=== PATIENT | female | born 1950 | race African-American/Black ===

== ENCOUNTER 2019-06-06 23:23 | Inpatient (IN) | payer MEDICARE, OTHER ==
[2019-06-07 00:27] VITALS: BP 111/68
[2019-06-07] MEDS: Levothyroxine 0.05 Mg Tab PO SCH (07:02)
[2019-06-07] MEDS: Multivitamin w/ Minerals Tab PO SCH (08:30)
--- NOTE | 2019-06-07 13:04 | History and Physical ---
History of Present Illness - HPI Chief Complaint: 68 y/o female patient was brought into [place] [facility] and then transferred here due Bilateral lower extremity edema for x 3 weeks. HPI: 68 y/o female patient was admitted to [facility] for evaluation due to Aggressive behavior and Bilateral lower extremity edema for x 3 weeks. Patient has past medical history of Hypertension and CHF. Patient had a chest x-ray done at [facility] which was negative for abnormalities. Patient had an ER assessment done and a complete workup was done. Patient was diagnosed with Agitation, Anxiety, Acute Psychosis, Bilateral lower extremity edema, History of CHF and History of Hypertension. Patient will have a Psych consult. I will follow, treat and monitor patient. Patient will continue current treatment plan as ordered. Vital Signs: Last Vital Signs Temp 98.2 F 06/07/19 06:38 Pulse 94 06/07/19 06:38 Resp 19 06/07/19 06:38 BP 141/82 06/07/19 06:38 Pulse Ox 99 06/07/19 06:38 Past Medical History Cardiovascular: Report: CHF, HTN Pulmonary: Report: No Pertinent Hx TREKKING GUIDE: Report: No Pertinent Hx GI: Report: No Pertinent Hx Psych: Report: Addictions Musculoskeletal: Report: Swelling (swelling of bilateral lower extremity.) Rheumatologic: Report: No pertinent Hx Infectious Disease: Report: No Pertinent Hx Renal/: Report: No Pertinent Hx Endocrine: Report: No Pertinent Hx Dermatology: Report: Other (edema of harry. lower) - Past Surgical History Past Surgical History: No pertinent Hx Family Medical History - Family Member unknown History Unknown: Yes Ethnicity: Unknown Living Status: Unknown Social History Smoke: No Alcohol: None Drugs: None Lives: [facility] Domestic Violence: Negative Health Maintenance Health Maintenance: Other (Please see chart.) - Medications Home Medications: Home Medication Medication Instructions Recorded Type Acetaminophen 650 mg PO Q4HR PRN 06/07/19 History Ascorbic Acid [Vitamin C] 500 mg PO DAILY 06/07/19 History Docusate Sodium [Colace] 100 mg PO DAILY 06/07/19 History Furosemide [Lasix] 40 mg PO DAILY 06/07/19 History Levothyroxine Sodium 50 mcg PO QDAC 06/07/19 History Lorazepam [Ativan] 1 ml IM Q6HR PRN 06/07/19 History Losartan Potassium 50 mg PO DAILY 06/07/19 History Multivitamin with Minerals 1 tab PO DAILY 06/07/19 History [Multivitamins with Minerals] QUEtiapine Fumarate [SEROquel] 200 mg PO BID 06/07/19 History Zinc Sulfate [Zinc Sulfate 111 1 tab PO DAILY 06/07/19 History mg-50 mg] Other Medications: Please see medication reconciliation sheet. - Allergies Allergies/Adverse Reactions: Allergies Allergy/AdvReac Type Severity Reaction Status Date / Time aspirin Allergy Verified 06/07/19 00:26 ibuprofen Allergy Verified 06/07/19 00:26 Penicillins Allergy Verified 06/07/19 00:26 Review of Systems - Review of Systems Review of Systems: Patient was admitted due to Agitation and Edema of harry. lower extremity. Constitutional: Report: Other (Agitated.) Eyes: Report: No Significant ENT: Report: No Significant Respiratory: Report: No Significant Cardiovascular: Report: No Significant Gastrointestinal: Report: No Significant Genitourinary: Report: No Significant Musculoskeletal: Report: No Significant Skin: Report: Other (sweling of harry. lower extremity.) Neurological: Report: Other (Patient is very agitated.) Physical Exam - Physical Exam HEENT: Report: Ears Nose Throat within normal limits Neck: Report: Within normal limits Cardiovascular Systems: Report: +s1/s2 noted Respiratory: Report: Breath Sounds are within normal limits Abdomen: Report: Non-tender to palpation Back: Report: Inspection of back is within normal limits. Extremities: Report: Non-tender to palpation. Skin: Report: Other (swelling of harry. lower extremity.) Neuro/Psych: Report: Other (Agitated.) - Lab Results All Lab Results last 24 hours: see orders. - Assessment Assessment: Agitation. Anxiety. Acute Psychosis. Bilateral lower extremity edema. History of CHF. History of Hypertension. - Plan Plan: Continuation of care. Psych consult. Monitor vitals and labs. Continue present meds as directed. Continue current treatment plan as ordered.
--- NOTE | 2019-06-07 18:12 | Psychiatric Evaluation ---
DATE OF SERVICE: 06/07/2019 JUSTIFICATION FOR HOSPITALIZATION: "The doctor wanted me to come." HISTORY OF PRESENT ILLNESS: This is a 68-year-old female, cleared by [facility], came from [facility], apparently aggressive. History of schizophrenia, mood disorder, was striking out. Staff could not care for her. She has no idea why she is in the hospital. She knows she is in the hospital. She tells me the year and the month, although she thinks it may be June. The patient was noted to be withdrawn, suspicious, labile, very impulsive, easily agitated. PAST PSYCHIATRIC HISTORY: She is not sure if she has been in a psych hospital before. SOCIAL HISTORY: Born in [place], living in [place], , 3 kids, living in [place]. MEDICATIONS: Noted. MEDICAL HISTORY: Noted. MENTAL STATUS EXAMINATION: Stated age, calm, generally cooperative, some confusion noted, especially about why she is in the hospital. Poor impulse control. Poor insight. No overt SI or HI. PROVISIONAL DIAGNOSES: Schizophrenia per documentation, mood disorder. MEDICAL: Please see full H and P. ESTIMATED LENGTH OF STAY: 7-10 days. ASSESSMENT: The patient requiring hospitalization, aggressive, agitated, and poor impulse control. PLAN: We will continue to monitor and adjust medications. TREATMENT PLAN: Includes group as well as milieu therapy. CONDITIONS FOR DISCHARGE: Improved mood, improved affect, better control of any agitation and aggressive behaviors. [facility]# [id number]
[2019-06-08] MEDS: Levothyroxine 0.05 Mg Tab PO SCH (06:30)
[2019-06-08] MEDS: Multivitamin w/ Minerals Tab PO SCH (09:03)
--- NOTE | 2019-06-08 13:11 | Internal Medicine Prog Note ---
Internal Medicine Subjective - Subjective Service Date: 06/08/19 Patient seen and examined:: with staff Patient is:: awake, verbal Patient Complaints of:: other (Anxious.) Per staff patient has:: no adverse event, no episodes of fall Internal Medicine Objective - Physical Exam Vitals and I&O: Vital Signs Temp 96.7 F 06/08/19 06:42 Pulse 85 06/08/19 09:03 Resp 20 06/08/19 06:42 BP 128/73 06/08/19 09:03 Pulse Ox 98 06/08/19 06:42 Intake & Output 06/07/19 06/08/19 06/08/19 18:59 06:59 18:59 Intake Total 720 Balance 720 Intake: Oral 720 Other: # Voids 2 Active Medications: Current Medications Acetaminophen (Tylenol) 650 mg PO Q4HR PRN PRN Reason: Mild Pain / Temp above 100 Stop: 08/06/19 04:11 Last Admin: 06/08/19 06:30 Dose: 650 mg Ascorbic Acid (Vitamin C) 500 mg PO DAILY [facility] Stop: 08/06/19 08:59 Last Admin: 06/08/19 09:03 Dose: 500 mg Docusate Sodium (Colace) 100 mg PO DAILY [facility] Stop: 08/06/19 08:59 Last Admin: 06/08/19 09:03 Dose: 100 mg Furosemide (Lasix) 40 mg PO DAILY [facility] Stop: 08/06/19 08:59 Last Admin: 06/08/19 09:03 Dose: 40 mg Levothyroxine Sodium (Synthroid) 0.05 mg PO QDAC [facility] Stop: 08/06/19 07:29 Last Admin: 06/08/19 06:30 Dose: 0.05 mg Lorazepam (Ativan) 0.5 mg PO Q4HR PRN; Protocol PRN Reason: Anxiety Stop: 07/07/19 02:06 Losartan Potassium (Cozaar) 50 mg PO DAILY [facility] Stop: 08/06/19 08:59 Last Admin: 06/08/19 09:03 Dose: 50 mg Quetiapine Fumarate (Seroquel) 200 mg PO BID [facility]; Protocol Stop: 08/06/19 16:59 Last Admin: 06/08/19 09:03 Dose: 200 mg Zinc Sulfate (Zinc Sulfate) 220 mg PO DAILY [facility] Stop: 08/06/19 08:59 Last Admin: 06/08/19 09:04 Dose: 220 mg Zolpidem Tartrate (Ambien) 5 mg PO HS PRN PRN Reason: Insomnia Stop: 08/06/19 02:06 Physical Exam: Patient is very anxious and agitated. General: other (irritable.) HEENT: NC/AT Neck: Supple Lungs: CTAB Cardiovascular: RRR, Normal S1 Abdomen: soft, non-tender Extremities: clear Neurological: no change Internal Medicine Assmt/Plan - Assessment Assessment: Agitation. Anxiety. Acute Psychosis. Bilateral lower extremity edema. History of CHF. History of Hypertension. - Plan Plan: Continuation of care. Psych consult. Monitor vitals and labs. Continue present meds as directed. Continue current treatment plan as ordered. Nutritional Asmnt/Malnutr-PDOC - Dietary Evaluation Malnutrition Findings (Please click <Entered> for more info): see orders.
--- NOTE | 2019-06-08 18:46 | Progress Notes ---
DATE: 06/08/2019 SUBJECTIVE: The patient was seen and evaluated. The patient's chart reviewed. Covering for Dr. Oakley. IDENTIFYING DATA: Brought in here from [facility] for aggressive and assaultive behavior. Medication reconciliation reviewed, currently on Seroquel 200 mg p.o. b.i.d. Today on [id number] evaluation, she reports I told you I do not want to be reevaluated, when attempted to get more information, she is more guarded, withdrawn, does not participate in interview. MENTAL STATUS EXAMINATION: Withdrawn, non-participatory in interview, suspicious. ASSESSMENT AND PLAN: This is a 68-year-old female who continues to be withdrawn, depressed and suspicious. We will continue with Seroquel. I will obtain more collateral and monitoring further her aggressive behavior. JOB# [id number]
[2019-06-09] MEDS: Levothyroxine 0.05 Mg Tab PO SCH (06:56)
[2019-06-09] MEDS: Multivitamin w/ Minerals Tab PO SCH (09:06)
--- NOTE | 2019-06-09 10:02 | Internal Medicine Prog Note ---
Internal Medicine Subjective - Subjective Patient is:: asleep, in bed Patient Complaints of:: other (Anxious.) Per staff patient has:: no adverse event, no episodes of fall Internal Medicine Objective - Physical Exam Vitals and I&O: Vital Signs Temp 97.6 F 06/09/19 05:57 Pulse 92 06/09/19 09:05 Resp 18 06/09/19 05:57 BP 126/72 06/09/19 09:05 Pulse Ox 98 06/09/19 05:57 Intake & Output 06/08/19 06/09/19 06/09/19 18:59 06:59 18:59 Intake Total 1200 480 Output Total 1 Balance 1200 479 Intake: Oral 1200 480 Output: Urine/Stool Mix 1 Other: # Voids 1 # Bowel Movements 1 1 Active Medications: Current Medications Acetaminophen (Tylenol) 650 mg PO Q4HR PRN PRN Reason: Mild Pain / Temp above 100 Stop: 08/06/19 04:11 Last Admin: 06/08/19 06:30 Dose: 650 mg Ascorbic Acid (Vitamin C) 500 mg PO DAILY [facility] Stop: 08/06/19 08:59 Last Admin: 06/09/19 09:03 Dose: 500 mg Docusate Sodium (Colace) 100 mg PO DAILY [facility] Stop: 08/06/19 08:59 Last Admin: 06/09/19 09:03 Dose: 100 mg Furosemide (Lasix) 40 mg PO DAILY [facility] Stop: 08/06/19 08:59 Last Admin: 06/09/19 09:03 Dose: 40 mg Levothyroxine Sodium (Synthroid) 0.05 mg PO QDAC [facility] Stop: 08/06/19 07:29 Last Admin: 06/09/19 06:56 Dose: 0.05 mg Lorazepam (Ativan) 0.5 mg PO Q4HR PRN; Protocol PRN Reason: Anxiety Stop: 07/07/19 02:06 Losartan Potassium (Cozaar) 50 mg PO DAILY [facility] Stop: 08/06/19 08:59 Last Admin: 06/09/19 09:05 Dose: 50 mg Quetiapine Fumarate (Seroquel) 200 mg PO BID [facility]; Protocol Stop: 08/06/19 16:59 Last Admin: 06/09/19 09:06 Dose: 200 mg Zinc Sulfate (Zinc Sulfate) 220 mg PO DAILY [facility] Stop: 08/06/19 08:59 Last Admin: 06/09/19 09:06 Dose: 220 mg Zolpidem Tartrate (Ambien) 5 mg PO HS PRN PRN Reason: Insomnia Stop: 08/06/19 02:06 General: NAD HEENT: NC/AT Neck: Supple, No JVD Lungs: CTAB Cardiovascular: RRR Abdomen: soft, non-tender, non-distended Extremities: clear Neurological: no change Internal Medicine Assmt/Plan - Assessment Assessment: Agitation Anxiety Acute Psychosis Hx CHF Hx HTN - Plan Plan: Continue current treatment plan. Monitor Labs. Continue current medications Continue to monitor VS Monitor Diet/Nutritional support. Psych management per Psychiatry. Pain Management. PT/OT prn Safety precaution, Fall precaution, frequent nursing round. Supportive care. Continue collaborating with consulting specialists, case management and nursing team
--- NOTE | 2019-06-09 18:34 | Progress Notes ---
DATE: 06/09/2019 SUBJECTIVE: The patient was seen and evaluated. Covering for Dr. Oakley. Today on [id number] evaluation, the patient denies any overt sedation of the medication. The patient reported her mood continues to feel better, does not know why she is here. MENTAL STATUS EXAMINATION: Withdrawn, disengaged, less suspicious. ASSESSMENT AND PLAN: This is a 68-year-old female with a history of schizoaffective depressive type with residual suspicious behavior improvement with the current medication regimen. We will continue to target and current symptoms with the current medication and primary psychiatrist treatment plan. JOB# [id number]
[2019-06-10] MEDS: Levothyroxine 0.05 Mg Tab PO SCH (06:42)
[2019-06-10] MEDS: Multivitamin w/ Minerals Tab PO SCH (08:49)
--- NOTE | 2019-06-10 09:39 | Internal Medicine Prog Note ---
Internal Medicine Subjective - Subjective Service Date: 06/10/19 Patient seen and examined:: with staff Patient is:: asleep, in bed Patient Complaints of:: other (Anxious.) Per staff patient has:: no adverse event, no episodes of fall Internal Medicine Objective - Physical Exam Vitals and I&O: Vital Signs Temp 99.7 F 06/10/19 05:55 Pulse 90 06/10/19 05:55 Resp 20 06/10/19 05:55 BP 116/66 06/10/19 05:55 Pulse Ox 99 06/10/19 05:55 Intake & Output 06/09/19 06/10/19 06/10/19 18:59 06:59 18:59 Intake Total 1250 300 Output Total 1 Balance 1250 299 Intake: Oral 1250 300 Output: Urine/Stool Mix 1 Other: # Voids 1 # Bowel Movements 1 1 Active Medications: Current Medications Acetaminophen (Tylenol) 650 mg PO Q4HR PRN PRN Reason: Mild Pain / Temp above 100 Stop: 08/06/19 04:11 Last Admin: 06/08/19 06:30 Dose: 650 mg Ascorbic Acid (Vitamin C) 500 mg PO DAILY [facility] Stop: 08/06/19 08:59 Last Admin: 06/10/19 08:49 Dose: 500 mg Docusate Sodium (Colace) 100 mg PO DAILY [facility] Stop: 08/06/19 08:59 Last Admin: 06/10/19 08:49 Dose: 100 mg Furosemide (Lasix) 40 mg PO DAILY [facility] Stop: 08/06/19 08:59 Last Admin: 06/09/19 09:03 Dose: 40 mg Levothyroxine Sodium (Synthroid) 0.05 mg PO QDAC [facility] Stop: 08/06/19 07:29 Last Admin: 06/10/19 06:42 Dose: 0.05 mg Lorazepam (Ativan) 0.5 mg PO Q4HR PRN; Protocol PRN Reason: Anxiety Stop: 07/07/19 02:06 Losartan Potassium (Cozaar) 50 mg PO DAILY [facility] Stop: 08/06/19 08:59 Last Admin: 06/09/19 09:05 Dose: 50 mg Quetiapine Fumarate (Seroquel) 200 mg PO BID [facility]; Protocol Stop: 08/06/19 16:59 Last Admin: 06/10/19 08:49 Dose: 200 mg Zinc Sulfate (Zinc Sulfate) 220 mg PO DAILY [facility] Stop: 08/06/19 08:59 Last Admin: 06/10/19 08:49 Dose: 220 mg Zolpidem Tartrate (Ambien) 5 mg PO HS PRN PRN Reason: Insomnia Stop: 08/06/19 02:06 Last Admin: 06/09/19 20:49 Dose: 5 mg Physical Exam: Patient is still very anxious and easily agitated. General: NAD HEENT: NC/AT Neck: Supple, No JVD Lungs: CTAB Cardiovascular: RRR Abdomen: soft, non-tender, non-distended Extremities: clear Neurological: no change Internal Medicine Assmt/Plan - Assessment Assessment: Agitation. Anxiety. Acute Psychosis. Bilateral lower extremity edema. History of CHF. History of Hypertension. - Plan Plan: Continuation of care. Psych consult. Monitor vitals and labs. Continue present meds as directed. Continue present care management. Nutritional Asmnt/Malnutr-PDOC - Dietary Evaluation Malnutrition Findings (Please click <Entered> for more info): see orders.
--- NOTE | 2019-06-10 23:56 | Progress Notes ---
DATE: 06/10/2019 SUBJECTIVE: The patient is currently in the hospital, seen today 06/10/2019. Does not have any idea why she is in the hospital, just stating that she is here for "an evaluation". Mostly withdrawn, keeping to herself, isolative, ongoing melancholy. Dr. Butts seeing her over the weekend, noting she was withdrawn, disengaged, ongoing concerns about impulsivity, poor impulse control. The patient is living in [facility]. ASSESSMENT: Ongoing depression, confusion, forgetfulness. PLAN: We will continue to monitor mostly because of aggressive and agitated behaviors. [facility]# [id number]
[2019-06-11] MEDS: Levothyroxine 0.05 Mg Tab PO SCH (06:36)
[2019-06-11] MEDS: Multivitamin w/ Minerals Tab PO SCH (09:10)
--- NOTE | 2019-06-11 16:46 | Internal Medicine Prog Note ---
Internal Medicine Subjective - Subjective Service Date: 06/11/19 Patient is:: asleep, in bed Patient Complaints of:: other (Anxious.) Per staff patient has:: no adverse event, no episodes of fall Internal Medicine Objective - Physical Exam Vitals and I&O: Vital Signs Temp 97.4 F 06/11/19 13:55 Pulse 101 06/11/19 13:55 Resp 18 06/11/19 13:55 BP 110/56 06/11/19 13:55 Pulse Ox 99 06/11/19 13:55 Intake & Output 06/10/19 06/11/19 06/11/19 18:59 06:59 18:59 Intake Total 300 Output Total 1 Balance 299 Intake: Oral 300 Output: Urine/Stool Mix 1 Other: # Voids 1 # Bowel Movements 1 Active Medications: Current Medications Acetaminophen (Tylenol) 650 mg PO Q4HR PRN PRN Reason: Mild Pain / Temp above 100 Stop: 08/06/19 04:11 Last Admin: 06/08/19 06:30 Dose: 650 mg Ascorbic Acid (Vitamin C) 500 mg PO DAILY [facility] Stop: 08/06/19 08:59 Last Admin: 06/11/19 09:09 Dose: 500 mg Docusate Sodium (Colace) 100 mg PO DAILY [facility] Stop: 08/06/19 08:59 Last Admin: 06/11/19 09:10 Dose: 100 mg Furosemide (Lasix) 40 mg PO DAILY [facility] Stop: 08/06/19 08:59 Last Admin: 06/11/19 09:09 Dose: 40 mg Levothyroxine Sodium (Synthroid) 0.05 mg PO QDAC [facility] Stop: 08/06/19 07:29 Last Admin: 06/11/19 06:36 Dose: 0.05 mg Lorazepam (Ativan) 0.5 mg PO Q4HR PRN; Protocol PRN Reason: Anxiety Stop: 07/07/19 02:06 Losartan Potassium (Cozaar) 50 mg PO DAILY [facility] Stop: 08/06/19 08:59 Last Admin: 06/11/19 09:10 Dose: 50 mg Quetiapine Fumarate (Seroquel) 200 mg PO BID [facility]; Protocol Stop: 08/06/19 16:59 Last Admin: 06/11/19 16:39 Dose: 200 mg Zinc Sulfate (Zinc Sulfate) 220 mg PO DAILY [facility] Stop: 08/06/19 08:59 Last Admin: 06/11/19 09:10 Dose: 220 mg Zolpidem Tartrate (Ambien) 5 mg PO HS PRN PRN Reason: Insomnia Stop: 08/06/19 02:06 Last Admin: 06/10/19 21:03 Dose: 5 mg General: NAD HEENT: NC/AT Neck: Supple, No JVD Lungs: CTAB Cardiovascular: RRR Abdomen: soft, non-tender, non-distended Extremities: clear Neurological: no change Internal Medicine Assmt/Plan - Assessment Assessment: Agitation Anxiety Acute Psychosis Hx CHF Hx HTN - Plan Plan: Continue current treatment plan. Monitor Labs. Continue current medications Continue to monitor VS Monitor Diet/Nutritional support. Psych management per Psychiatry. Pain Management. PT/OT prn Safety precaution, Fall precaution, frequent nursing round. Supportive care. Continue collaborating with consulting specialists, case management and nursing team
[2019-06-12] MEDS: Levothyroxine 0.05 Mg Tab PO SCH (06:35)
[2019-06-12] MEDS: Multivitamin w/ Minerals Tab PO SCH (08:21)
--- NOTE | 2019-06-12 14:38 | Internal Medicine Prog Note ---
Internal Medicine Subjective - Subjective Service Date: 06/12/19 Patient seen and examined:: with staff Patient is:: awake, in bed, agitated Patient Complaints of:: other (Anxious.) Per staff patient has:: no adverse event, no episodes of fall Internal Medicine Objective - Physical Exam Vitals and I&O: Vital Signs Temp 96.8 F 06/12/19 05:16 Pulse 96 06/12/19 08:22 Resp 19 06/12/19 07:44 BP 130/79 06/12/19 08:22 Pulse Ox 100 06/12/19 05:16 Intake & Output 06/11/19 06/12/19 06/12/19 18:59 06:59 18:59 Intake Total 180 Balance 180 Intake: Oral 180 Other: # Voids 4 1 # Bowel Movements 1 0 Active Medications: Current Medications Acetaminophen (Tylenol) 650 mg PO Q4HR PRN PRN Reason: Mild Pain / Temp above 100 Stop: 08/06/19 04:11 Last Admin: 06/08/19 06:30 Dose: 650 mg Ascorbic Acid (Vitamin C) 500 mg PO DAILY [facility] Stop: 08/06/19 08:59 Last Admin: 06/12/19 08:21 Dose: 500 mg Docusate Sodium (Colace) 100 mg PO DAILY [facility] Stop: 08/06/19 08:59 Last Admin: 06/12/19 08:21 Dose: 100 mg Furosemide (Lasix) 40 mg PO DAILY [facility] Stop: 08/06/19 08:59 Last Admin: 06/12/19 08:21 Dose: 40 mg Levothyroxine Sodium (Synthroid) 0.05 mg PO QDAC [facility] Stop: 08/06/19 07:29 Last Admin: 06/12/19 06:35 Dose: 0.05 mg Lorazepam (Ativan) 0.5 mg PO Q4HR PRN; Protocol PRN Reason: Anxiety Stop: 07/07/19 02:06 Losartan Potassium (Cozaar) 50 mg PO DAILY [facility] Stop: 08/06/19 08:59 Last Admin: 06/12/19 08:22 Dose: 50 mg Quetiapine Fumarate (Seroquel) 200 mg PO BID [facility]; Protocol Stop: 08/06/19 16:59 Last Admin: 06/12/19 08:22 Dose: 200 mg Zinc Sulfate (Zinc Sulfate) 220 mg PO DAILY [facility] Stop: 08/06/19 08:59 Last Admin: 06/12/19 08:21 Dose: 220 mg Zolpidem Tartrate (Ambien) 5 mg PO HS PRN PRN Reason: Insomnia Stop: 08/06/19 02:06 Last Admin: 06/10/19 21:03 Dose: 5 mg Physical Exam: Patient is easily agitated and anxious. General: NAD HEENT: NC/AT Neck: Supple, No JVD Lungs: CTAB Cardiovascular: RRR Abdomen: soft, non-tender, non-distended Extremities: clear Neurological: no change Internal Medicine Assmt/Plan - Assessment Assessment: Agitation. Anxiety. Acute Psychosis. Bilateral lower extremity edema. History of CHF. History of Hypertension. - Plan Plan: Continuation of care. Psych consult. Monitor vitals and labs. Continue present meds as directed. Continue present care management. Nutritional Asmnt/Malnutr-PDOC - Dietary Evaluation Malnutrition Findings (Please click <Entered> for more info): see orders.
--- NOTE | 2019-06-12 16:34 | Progress Notes ---
DATE: SUBJECTIVE: Chart reviewed and the patient interviewed. Also discussed the patient's condition with the staff and reviewed records and labs. The patient is still forgetful and is still withdrawn. The patient also is depressed. The patient also is impulsive and she wants to be left alone and isolates herself. Otherwise, the patient is compliant with taking her medications with no side effects. ASSESSMENT: The patient is still confused and forgetful. TREATMENT PLAN: Continue to monitor her behavior and her condition closely. The patient also continued to take Seroquel 200 mg twice a day with no side effects. We will continue same dose and continue to work on behavior modification and followup. JOB# [id number]
[2019-06-13] MEDS: Levothyroxine 0.05 Mg Tab PO SCH (06:36)
[2019-06-13] MEDS: Escitalopram Oxalate 5 mg Tab PO SCH (09:12)
[2019-06-13] MEDS: Multivitamin w/ Minerals Tab PO SCH (09:14)
--- NOTE | 2019-06-13 14:57 | Internal Medicine Prog Note ---
Internal Medicine Subjective - Subjective Service Date: 06/13/19 Patient is:: awake, in bed, agitated Patient Complaints of:: other (Anxious.) Per staff patient has:: no adverse event, no episodes of fall Internal Medicine Objective - Physical Exam Vitals and I&O: Vital Signs Temp 97.5 F 06/13/19 06:34 Pulse 80 06/13/19 09:13 Resp 19 06/13/19 08:00 BP 110/66 06/13/19 09:15 Pulse Ox 99 06/13/19 06:34 Intake & Output 06/12/19 06/13/19 06/13/19 18:59 06:59 18:59 Intake Total 900 240 Balance 900 240 Intake: Oral 900 240 Other: # Voids 3 1 # Bowel Movements 1 Active Medications: Current Medications Acetaminophen (Tylenol) 650 mg PO Q4HR PRN PRN Reason: Mild Pain / Temp above 100 Stop: 08/06/19 04:11 Last Admin: 06/08/19 06:30 Dose: 650 mg Ascorbic Acid (Vitamin C) 500 mg PO DAILY [facility] Stop: 08/06/19 08:59 Last Admin: 06/13/19 09:14 Dose: 500 mg Docusate Sodium (Colace) 100 mg PO DAILY [facility] Stop: 08/06/19 08:59 Last Admin: 06/13/19 09:14 Dose: 100 mg Escitalopram Oxalate (Lexapro) 5 mg PO DAILY [facility]; Protocol Stop: 08/12/19 08:59 Last Admin: 06/13/19 09:12 Dose: 5 mg Furosemide (Lasix) 40 mg PO DAILY [facility] Stop: 08/06/19 08:59 Last Admin: 06/13/19 09:15 Dose: 40 mg Levothyroxine Sodium (Synthroid) 0.05 mg PO QDAC [facility] Stop: 08/06/19 07:29 Last Admin: 06/13/19 06:36 Dose: 0.05 mg Lorazepam (Ativan) 0.5 mg PO Q4HR PRN; Protocol PRN Reason: Anxiety Stop: 07/07/19 02:06 Losartan Potassium (Cozaar) 50 mg PO DAILY [facility] Stop: 08/06/19 08:59 Last Admin: 06/13/19 09:13 Dose: Not Given Quetiapine Fumarate (Seroquel) 175 mg PO BID [facility]; Protocol Stop: 08/12/19 08:59 Last Admin: 06/13/19 09:11 Dose: 175 mg Zinc Sulfate (Zinc Sulfate) 220 mg PO DAILY [facility] Stop: 08/06/19 08:59 Last Admin: 06/13/19 09:12 Dose: 220 mg Zolpidem Tartrate (Ambien) 5 mg PO HS PRN PRN Reason: Insomnia Stop: 08/06/19 02:06 Last Admin: 06/10/19 21:03 Dose: 5 mg General: NAD HEENT: NC/AT Neck: Supple, No JVD Lungs: CTAB Cardiovascular: RRR Abdomen: soft, non-tender, non-distended Extremities: clear Neurological: no change Internal Medicine Assmt/Plan - Assessment Assessment: Agitation Anxiety Acute Psychosis Hx CHF Hx HTN - Plan Plan: Continue current treatment plan. Monitor Labs. Continue current medications Continue to monitor VS Monitor Diet/Nutritional support. Psych management per Psychiatry. Pain Management. PT/OT prn Safety precaution, Fall precaution, frequent nursing round. Supportive care. Continue collaborating with consulting specialists, case management and nursing team Nutritional Asmnt/Malnutr-PDOC - Dietary Evaluation Malnutrition Findings (Please click <Entered> for more info): Nutritional Asmnt/Malnutrition Start: 06/12/19 15: 50 Text: Status: Complete Freq: Protocol: Document 06/12/19 15:50 JOVAN (Rec: 06/12/19 15:53 JOVAN [email or web address]) Nutritional Asmnt/Malnutrition Patient General Information Nutritional Screening Low Risk Diagnosis Psychosis Pertinent Medical Hx/Surgical Hx HTN, CHF Subjective Information Pt is a 68-year-old female admitted on 06/06 from residential c/o YESIKA Lower Extremity edema x3 weeks. Pt is eating an estimated 90% of meals x 2 days (average) Per Meal/ Nutrition Activity Record. Dietary is currently providing an estimated 2450 kcals and 107 gm Pro, per Pt PO intake this is providing an estimated 2205 kcals and 96gm Pro to meet 100% kcal and 100+% Pro needs- adequate to meet estimated energy needs, Protein intake > estimated energy needs d/t renal labs () BUN/Cr 46/1.27, GFR 54. Recommend adding Renal to Pt diet order, spoke with Nurse Méndez, stated she would discuss recommendation with MD . Pt was sleeping and covered with a blanket at time of visit. HT: 57 WT: 172 LB (78.18 kg) BMI: 26.63 (Overweight) GI: Soft, Non-tender BM: 06/11 x1 I/O: 180/Not Noted Skin: Dryness Oniel: 17 Diet Order: Mechanical Soft, BUFFY Estimated Energy Needs: (CKD stage 3, CBW) 0733-7284 kcals (28-30 kcals/ kg) 59-63g Pro (0.75-0.8g/kg) 4348-2725 ml (25-30 ml/kg) Current Diet Order/ Nutrition Support Mechanical Soft, BUFFY Pertinent Medications Vitamin C, Colace, Lasix, Synthroid, Cozaar, Zinc Sulfate Pertinent Labs 06/06: Hgb/Hct 9.8/29.6, Glucose 116, BUN/Cr 46/1.27, GFR 54, Alb 2.8 Nutritional Hx/Data Height 5 ft 7 in Height (Calculated Centimeters) 170.2 Current Weight (lbs) 172 lb Weight (Calculated Kilograms) 78.0 Weight (Calculated Grams) 48631.9 [place] Body Weight 135 LB (61.36 kg) % [place] Body Weight 127 Body Mass Index (BMI) 26.9 Weight Status Overweight GI Symptoms GI Symptoms None Last BM 06/11 x1 Skin Integrity/Comment: Skin: Dryness Oniel: 17 Current %PO Good (75-100%) Estimated Nutritional Goals BEE in Kcals: Using Current wt Calories/Kcals/Kg 28-30 Kcals Calculated 7613-8884 Protein: Using Current wt Protein g/k.75-0.8 Protein Calculated 59-63 Fluid: ml 5986-4255 ml (25-30 ml/kg) Nutritional Problem 1. Problem Problem Altered nutrition related labs Etiology r/t pathophysiological causes Signs/Symptoms: aeb renal labs (06/06) BUN/Cr 46/1.27, GFR 54. Malnutrition Related to Morbid Obesity Malnutrition related to morbid obesity No Intervention/Recommendation Comments 1. Continue with Mechanical Soft, BUFFY diet as ordered. 2. Consider Renal diet d/t renal labs (06/06) BUN/Cr 46/1. 27, GFR 54. Expected Outcomes/Goals Expected Outcomes/Goals 1. PO intake to continue to meet >75% of nutritional needs . 2. Monitor PO intake, wt, skin integrity and nutrition related labs to trend WNL. 3. F/U as moderate risk in 3-5 days, 06/15-06/18
--- NOTE | 2019-06-13 15:42 | Progress Notes ---
DATE: SUBJECTIVE: Chart reviewed and the patient interviewed. I also discussed the patient's condition with the staff and reviewed records and labs. The patient is still preoccupied and is still actively responding. The patient also is withdrawn and guarded and interacting minimally with others. The patient also is impulsive with poor impulse control. The patient also wants to be left alone most of the time. On the other hand, the patient hallucinations seem to be less than before. ASSESSMENT: The patient is still psychotic and has poor impulse control. TREATMENT PLAN: Continue Seroquel 200 mg twice a day. Also, continue to work on her poor impulse control. JOB# [id number]
[2019-06-14] MEDS: Levothyroxine 0.05 Mg Tab PO SCH (06:38)
[2019-06-14] MEDS: Multivitamin w/ Minerals Tab PO SCH (08:42)
[2019-06-14] MEDS: Escitalopram Oxalate 5 mg Tab PO SCH (08:42)
--- NOTE | 2019-06-14 10:41 | Internal Medicine Prog Note ---
Internal Medicine Subjective - Subjective Service Date: 06/14/19 Patient seen and examined:: with staff Patient is:: awake, in bed, agitated Patient Complaints of:: other (Anxious.) Per staff patient has:: no adverse event, no episodes of fall Internal Medicine Objective - Physical Exam Vitals and I&O: Vital Signs Temp 96.7 F 06/13/19 20:00 Pulse 93 06/13/19 20:00 Resp 20 06/13/19 20:00 BP 111/68 06/14/19 08:46 Pulse Ox 99 06/13/19 20:00 Intake & Output 06/13/19 06/14/19 06/14/19 18:59 06:59 18:59 Intake Total 1200 Balance 1200 Intake: Oral 1200 Other: # Bowel Movements 1 Active Medications: Current Medications Acetaminophen (Tylenol) 650 mg PO Q4HR PRN PRN Reason: Mild Pain / Temp above 100 Stop: 08/06/19 04:11 Last Admin: 06/08/19 06:30 Dose: 650 mg Ascorbic Acid (Vitamin C) 500 mg PO DAILY [facility] Stop: 08/06/19 08:59 Last Admin: 06/14/19 08:42 Dose: 500 mg Docusate Sodium (Colace) 100 mg PO DAILY [facility] Stop: 08/06/19 08:59 Last Admin: 06/14/19 08:42 Dose: 100 mg Escitalopram Oxalate (Lexapro) 5 mg PO DAILY [facility]; Protocol Stop: 08/12/19 08:59 Last Admin: 06/14/19 08:42 Dose: 5 mg Furosemide (Lasix) 40 mg PO DAILY [facility] Stop: 08/06/19 08:59 Last Admin: 06/14/19 08:46 Dose: 40 mg Levothyroxine Sodium (Synthroid) 0.05 mg PO QDAC [facility] Stop: 08/06/19 07:29 Last Admin: 06/14/19 06:38 Dose: 0.05 mg Lorazepam (Ativan) 0.5 mg PO Q4HR PRN; Protocol PRN Reason: Anxiety Stop: 07/07/19 02:06 Losartan Potassium (Cozaar) 50 mg PO DAILY [facility] Stop: 08/06/19 08:59 Last Admin: 06/13/19 09:13 Dose: Not Given Quetiapine Fumarate (Seroquel) 175 mg PO BID [facility]; Protocol Stop: 08/12/19 08:59 Last Admin: 06/14/19 08:43 Dose: 175 mg Zinc Sulfate (Zinc Sulfate) 220 mg PO DAILY [facility] Stop: 08/06/19 08:59 Last Admin: 06/14/19 08:42 Dose: 220 mg Zolpidem Tartrate (Ambien) 5 mg PO HS PRN PRN Reason: Insomnia Stop: 08/06/19 02:06 Last Admin: 06/10/19 21:03 Dose: 5 mg Physical Exam: Patient has ppor impulse control, psychotic. General: NAD HEENT: NC/AT Neck: Supple, No JVD Lungs: CTAB Cardiovascular: RRR Abdomen: soft, non-tender, non-distended Extremities: clear Neurological: no change Internal Medicine Assmt/Plan - Assessment Assessment: Poor impulse control. Agitation. Anxiety. Acute Psychosis. Bilateral lower extremity edema. History of CHF. History of Hypertension. - Plan Plan: Continuation of care. Psych consult. Monitor vitals and labs. Continue present meds as directed. Continue present care management. Nutritional Asmnt/Malnutr-PDOC - Dietary Evaluation Malnutrition Findings (Please click <Entered> for more info): Nutritional Asmnt/Malnutrition Start: 06/12/19 15: 50 Text: Status: Complete Freq: Protocol: Document 06/12/19 15:50 JOVAN (Rec: 06/12/19 15:53 JOVAN [email or web address]) Nutritional Asmnt/Malnutrition Patient General Information Nutritional Screening Low Risk Diagnosis Psychosis Pertinent Medical Hx/Surgical Hx HTN, CHF Subjective Information Pt is a 68-year-old female admitted on 06/06 from [facility] c/o YESIKA Lower Extremity edema x3 weeks. Pt is eating an estimated 90% of meals x 2 days (average) Per Meal/ Nutrition Activity Record. Dietary is currently providing an estimated 2450 kcals and 107 gm Pro, per Pt PO intake this is providing an estimated 2205 kcals and 96gm Pro to meet 100% kcal and 100+% Pro needs- adequate to meet estimated energy needs, Protein intake > estimated energy needs d/t renal labs () BUN/Cr 46/1.27, GFR 54. Recommend adding Renal to Pt diet order, spoke with Nurse Honey, stated she would discuss recommendation with MD . Pt was sleeping and covered with a blanket at time of visit. HT: 57 WT: 172 LB (78.18 kg) BMI: 26.63 (Overweight) GI: Soft, Non-tender BM: 06/11 x1 I/O: 180/Not Noted Skin: Dryness Oniel: 17 Diet Order: Mechanical Soft, BUFFY Estimated Energy Needs: (CKD stage 3, CBW) 1457-3971 kcals (28-30 kcals/ kg) 59-63g Pro (0.75-0.8g/kg) 3600-8456 ml (25-30 ml/kg) Current Diet Order/ Nutrition Support Mechanical Soft, BUFFY Pertinent Medications Vitamin C, Colace, Lasix, Synthroid, Cozaar, Zinc Sulfate Pertinent Labs 06/06: Hgb/Hct 9.8/29.6, Glucose 116, BUN/Cr 46/1.27, GFR 54, Alb 2.8 Nutritional Hx/Data Height 1.7 m Height (Calculated Centimeters) 170.2 Current Weight (lbs) 78.018 kg Weight (Calculated Kilograms) 78.0 Weight (Calculated Grams) 11855.9 [place] Body Weight 135 LB (61.36 kg) % [place] Body Weight 127 Body Mass Index (BMI) 26.9 Weight Status Overweight GI Symptoms GI Symptoms None Last BM 06/11 x1 Skin Integrity/Comment: Skin: Dryness Oniel: 17 Current %PO Good (75-100%) Estimated Nutritional Goals BEE in Kcals: Using Current wt Calories/Kcals/Kg 28-30 Kcals Calculated 4535-3302 Protein: Using Current wt Protein g/k.75-0.8 Protein Calculated 59-63 Fluid: ml 9381-8971 ml (25-30 ml/kg) Nutritional Problem 1. Problem Problem Altered nutrition related labs Etiology r/t pathophysiological causes Signs/Symptoms: aeb renal labs (06/06) BUN/Cr 46/1.27, GFR 54. Malnutrition Related to Morbid Obesity Malnutrition related to morbid obesity No Intervention/Recommendation Comments 1. Continue with Mechanical Soft, BUFFY diet as ordered. 2. Consider Renal diet d/t renal labs (06/06) BUN/Cr 46/1. 27, GFR 54. Expected Outcomes/Goals Expected Outcomes/Goals 1. PO intake to continue to meet >75% of nutritional needs . 2. Monitor PO intake, wt, skin integrity and nutrition related labs to trend WNL. 3. F/U as moderate risk in 3-5 days, 06/15-06/18
--- NOTE | 2019-06-15 01:27 | Progress Notes ---
DATE: 06/13/2019 SUBJECTIVE: Chart reviewed and the patient interviewed. Also discussed the patient's condition with the staff and reviewed records and labs. The patient is still isolative and withdrawn and she is still rambling and has non-meaningful conversation. The patient also stays in her room most of the time and isolates herself. The patient also seems to be slightly groggy and sleepy. The patient also still needs close monitoring and close observation. Otherwise, the patient is compliant with taking her medications, with no side effects of medications except being sedated. ASSESSMENT: The patient is still psychotic and is still considered to be gravely disabled. TREATMENT PLAN: We will decrease Seroquel to 175 mg twice a day. Also, because of her depression, we will start the patient on Lexapro 5 mg every day and we will continue to follow up closely. JOB# [id number]
--- NOTE | 2019-06-15 02:40 | Progress Notes ---
DATE: SUBJECTIVE: Chart reviewed and the patient interviewed. Also discussed the patient's condition with the staff and reviewed records and labs. The patient is still preoccupied and she is still anxious and actively responding to stimuli, but it seems the hallucinations are less. The patient also seems to be less sedated since I decreased her Seroquel to 175 mg twice a day. She is still isolative and withdrawn and tends to stay by herself most of the time. Otherwise, the patient is compliant with taking medications with no side effects. ASSESSMENT: The patient is still depressed and psychotic. TREATMENT PLAN: Continue monitoring her behavior. Also, continue her psychotropic medications including Seroquel and Lexapro and continue to follow up. [facility]# [id number]
[2019-06-15] MEDS: Levothyroxine 0.05 Mg Tab PO SCH (06:50)
--- NOTE | 2019-06-15 07:21 | Progress Notes ---
DATE: 06/15/2019 SUBJECTIVE: The patient was seen in her room. The patient is asleep, but easily arousable. The patient appears to be withdrawn, isolative, episodes of anxiety. Admits to still have low mood, low energy, poor motivation. Otherwise, the patient appears to be in no acute distress. OBJECTIVE: VITAL SIGNS: Temperature 97.1, heart rate 93, blood pressure 102/53, respirations 18, 97% on room air. HEENT: Head is atraumatic and normocephalic. Eyes: Bilateral conjunctivae are clear. Bilateral pupils equal, round, reactive. NECK: Supple. No JVD. CARDIOVASCULAR: S1 and S2, without murmur. PULMONARY: Clear to auscultation. GASTROINTESTINAL: Soft and nontender without guarding. Positive bowel sounds. MUSCULOSKELETAL: No clubbing. No cyanosis noted. ASSESSMENT: 1. Psychosis. 2. Anxiety. 3. History of hypertension. 4. History of congestive heart failure. PLAN: We will continue to keep the patient inpatient to Psychiatric Unit. We will follow up with the psychiatrist to monitor the patient's condition and progress. We put the patient on fall precaution. Treatment plans were discussed with the patient's nurse. Treatment plans were discussed with Dr. Minor. JOB# [id number]
[2019-06-15] MEDS: Multivitamin w/ Minerals Tab PO SCH (10:17)
[2019-06-15] MEDS: Escitalopram Oxalate 5 mg Tab PO SCH (10:17)
--- NOTE | 2019-06-15 23:10 | Progress Notes ---
DATE: 06/15/2019 SUBJECTIVE: Chart reviewed and the patient interviewed. Also discussed the patient's condition with the staff and reviewed records and labs. The patient is still calm and is still guarded and anxious. The patient also is still isolative and withdrawn and interacting minimally with others. The patient also is preoccupied. The patient also still has difficulty carrying on a meaningful conversation and she still isolates herself and stays by herself most of the time. On the other hand, the patient seems to be less sedated and she seems to be interacting slightly more. ASSESSMENT: The patient is still anxious and is still paranoid. TREATMENT PLAN: Continue to monitor behavior and condition closely. Also, continue adjusting medications and followup. [facility]# [id number]
[2019-06-16] MEDS: Levothyroxine 0.05 Mg Tab PO SCH (06:38)
[2019-06-16] MEDS: Multivitamin w/ Minerals Tab PO SCH (09:24)
[2019-06-16] MEDS: Escitalopram Oxalate 5 mg Tab PO SCH (09:25)
--- NOTE | 2019-06-16 14:04 | Internal Medicine Prog Note ---
Internal Medicine Subjective - Subjective Service Date: 06/16/19 Patient seen and examined:: with staff Patient is:: awake, in bed, agitated Patient Complaints of:: other (Anxious.) Per staff patient has:: no adverse event, no episodes of fall Internal Medicine Objective - Physical Exam Vitals and I&O: Vital Signs Temp 98.1 F 06/16/19 06:18 Pulse 70 06/16/19 09:25 Resp 16 06/16/19 08:00 BP 117/66 06/16/19 09:25 Pulse Ox 99 06/16/19 06:18 Intake & Output 06/15/19 06/16/19 06/16/19 18:59 06:59 18:59 Intake Total 120 Balance 120 Intake: Oral 120 Other: # Voids 3 Active Medications: Current Medications Acetaminophen (Tylenol) 650 mg PO Q4HR PRN PRN Reason: Mild Pain / Temp above 100 Stop: 08/06/19 04:11 Last Admin: 06/08/19 06:30 Dose: 650 mg Ascorbic Acid (Vitamin C) 500 mg PO DAILY [facility] Stop: 08/06/19 08:59 Last Admin: 06/16/19 09:24 Dose: 500 mg Docusate Sodium (Colace) 100 mg PO DAILY [facility] Stop: 08/06/19 08:59 Last Admin: 06/16/19 09:24 Dose: 100 mg Escitalopram Oxalate (Lexapro) 5 mg PO DAILY [facility]; Protocol Stop: 08/12/19 08:59 Last Admin: 06/16/19 09:25 Dose: 5 mg Furosemide (Lasix) 40 mg PO DAILY [facility] Stop: 08/06/19 08:59 Last Admin: 06/16/19 09:25 Dose: 40 mg Levothyroxine Sodium (Synthroid) 0.05 mg PO QDAC [facility] Stop: 08/06/19 07:29 Last Admin: 06/16/19 06:38 Dose: 0.05 mg Lorazepam (Ativan) 0.5 mg PO Q4HR PRN; Protocol PRN Reason: Anxiety Stop: 07/07/19 02:06 Losartan Potassium (Cozaar) 50 mg PO DAILY [facility] Stop: 08/06/19 08:59 Last Admin: 06/16/19 09:25 Dose: 50 mg Quetiapine Fumarate (Seroquel) 175 mg PO BID [facility]; Protocol Stop: 08/12/19 08:59 Last Admin: 06/16/19 09:25 Dose: 175 mg Zinc Sulfate (Zinc Sulfate) 220 mg PO DAILY [facility] Stop: 08/06/19 08:59 Last Admin: 06/16/19 09:24 Dose: 220 mg Zolpidem Tartrate (Ambien) 5 mg PO HS PRN PRN Reason: Insomnia Stop: 08/06/19 02:06 Last Admin: 06/10/19 21:03 Dose: 5 mg Physical Exam: Patient still anxious, keeps to herself, very paranoid. General: demented, NAD HEENT: NC/AT Neck: Supple, No JVD Lungs: CTAB Cardiovascular: RRR Abdomen: soft, non-tender, non-distended Extremities: clear Neurological: no change Internal Medicine Assmt/Plan - Assessment Assessment: Poor impulse control. Agitation. Anxiety. Acute Psychosis. Bilateral lower extremity edema. History of CHF. History of Hypertension. - Plan Plan: Continuation of care. Psych management per Psych. Monitor vitals and labs. Continue present meds as directed. Continue present care management. Nutritional Asmnt/Malnutr-PDOC - Dietary Evaluation Malnutrition Findings (Please click <Entered> for more info): Nutritional Asmnt/Malnutrition Start: 06/12/19 15: 50 Text: Status: Complete Freq: Protocol: Document 06/12/19 15:50 JOVAN (Rec: 06/12/19 15:53 JOVAN [email or web address]) Nutritional Asmnt/Malnutrition Patient General Information Nutritional Screening Low Risk Diagnosis Psychosis Pertinent Medical Hx/Surgical Hx HTN, CHF Subjective Information Pt is a 68-year-old female admitted on 06/06 from [facility] c/o YESIKA Lower Extremity edema x3 weeks. Pt is eating an estimated 90% of meals x 2 days (average) Per Meal/ Nutrition Activity Record. Dietary is currently providing an estimated 2450 kcals and 107 gm Pro, per Pt PO intake this is providing an estimated 2205 kcals and 96gm Pro to meet 100% kcal and 100+% Pro needs- adequate to meet estimated energy needs, Protein intake > estimated energy needs d/t renal labs () BUN/Cr 46/1.27, GFR 54. Recommend adding Renal to Pt diet order, spoke with Nurse Méndez, stated she would discuss recommendation with MD . Pt was sleeping and covered with a blanket at time of visit. HT: 57 WT: 172 LB (78.18 kg) BMI: 26.63 (Overweight) GI: Soft, Non-tender BM: 06/11 x1 I/O: 180/Not Noted Skin: Dryness Oniel: 17 Diet Order: Mechanical Soft, BUFFY Estimated Energy Needs: (CKD stage 3, CBW) 3752-9292 kcals (28-30 kcals/ kg) 59-63g Pro (0.75-0.8g/kg) 1288-7162 ml (25-30 ml/kg) Current Diet Order/ Nutrition Support Mechanical Soft, BUFFY Pertinent Medications Vitamin C, Colace, Lasix, Synthroid, Cozaar, Zinc Sulfate Pertinent Labs 06/06: Hgb/Hct 9.8/29.6, Glucose 116, BUN/Cr 46/1.27, GFR 54, Alb 2.8 Nutritional Hx/Data Height 1.7 m Height (Calculated Centimeters) 170.2 Current Weight (lbs) 78.018 kg Weight (Calculated Kilograms) 78.0 Weight (Calculated Grams) 06617.9 [place] Body Weight 135 LB (61.36 kg) % [place] Body Weight 127 Body Mass Index (BMI) 26.9 Weight Status Overweight GI Symptoms GI Symptoms None Last BM 06/11 x1 Skin Integrity/Comment: Skin: Dryness Oniel: 17 Current %PO Good (75-100%) Estimated Nutritional Goals BEE in Kcals: Using Current wt Calories/Kcals/Kg 28-30 Kcals Calculated 5332-6445 Protein: Using Current wt Protein g/k.75-0.8 Protein Calculated 59-63 Fluid: ml 6174-6888 ml (25-30 ml/kg) Nutritional Problem 1. Problem Problem Altered nutrition related labs Etiology r/t pathophysiological causes Signs/Symptoms: aeb renal labs (06/06) BUN/Cr 46/1.27, GFR 54. Malnutrition Related to Morbid Obesity Malnutrition related to morbid obesity No Intervention/Recommendation Comments 1. Continue with Mechanical Soft, BUFFY diet as ordered. 2. Consider Renal diet d/t renal labs (06/06) BUN/Cr 46/1. 27, GFR 54. Expected Outcomes/Goals Expected Outcomes/Goals 1. PO intake to continue to meet >75% of nutritional needs . 2. Monitor PO intake, wt, skin integrity and nutrition related labs to trend WNL. 3. F/U as moderate risk in 3-5 days, 06/15-06/18
--- NOTE | 2019-06-16 17:17 | Internal Medicine Prog Note ---
Internal Medicine Subjective - Subjective Patient is:: awake, in bed, agitated Patient Complaints of:: other (Anxious.) Per staff patient has:: no adverse event, no episodes of fall Internal Medicine Objective - Physical Exam Vitals and I&O: Vital Signs Temp 98.0 F 06/16/19 14:00 Pulse 91 06/16/19 14:00 Resp 20 06/16/19 14:00 BP 100/65 06/16/19 14:00 Pulse Ox 98 06/16/19 14:00 Intake & Output 06/15/19 06/16/19 06/16/19 18:59 06:59 18:59 Intake Total 120 Balance 120 Intake: Oral 120 Other: # Voids 3 Active Medications: Current Medications Acetaminophen (Tylenol) 650 mg PO Q4HR PRN PRN Reason: Mild Pain / Temp above 100 Stop: 08/06/19 04:11 Last Admin: 06/08/19 06:30 Dose: 650 mg Ascorbic Acid (Vitamin C) 500 mg PO DAILY [facility] Stop: 08/06/19 08:59 Last Admin: 06/16/19 09:24 Dose: 500 mg Docusate Sodium (Colace) 100 mg PO DAILY [facility] Stop: 08/06/19 08:59 Last Admin: 06/16/19 09:24 Dose: 100 mg Escitalopram Oxalate (Lexapro) 5 mg PO DAILY [facility]; Protocol Stop: 08/12/19 08:59 Last Admin: 06/16/19 09:25 Dose: 5 mg Furosemide (Lasix) 40 mg PO DAILY [facility] Stop: 08/06/19 08:59 Last Admin: 06/16/19 09:25 Dose: 40 mg Levothyroxine Sodium (Synthroid) 0.05 mg PO QDAC [facility] Stop: 08/06/19 07:29 Last Admin: 06/16/19 06:38 Dose: 0.05 mg Lorazepam (Ativan) 0.5 mg PO Q4HR PRN; Protocol PRN Reason: Anxiety Stop: 07/07/19 02:06 Losartan Potassium (Cozaar) 50 mg PO DAILY [facility] Stop: 08/06/19 08:59 Last Admin: 06/16/19 09:25 Dose: 50 mg Quetiapine Fumarate (Seroquel) 175 mg PO BID [facility]; Protocol Stop: 08/12/19 08:59 Last Admin: 06/16/19 16:36 Dose: 175 mg Zinc Sulfate (Zinc Sulfate) 220 mg PO DAILY [facility] Stop: 08/06/19 08:59 Last Admin: 06/16/19 09:24 Dose: 220 mg Zolpidem Tartrate (Ambien) 5 mg PO HS PRN PRN Reason: Insomnia Stop: 08/06/19 02:06 Last Admin: 06/10/19 21:03 Dose: 5 mg General: demented, NAD HEENT: NC/AT Neck: Supple, No JVD Lungs: CTAB Cardiovascular: RRR Abdomen: soft, non-tender, non-distended Extremities: clear Neurological: no change Internal Medicine Assmt/Plan - Assessment Assessment: Agitation Anxiety Poor impullse control Acute Psychosis Hx CHF Hx HTN - Plan Plan: Continue current treatment plan. Monitor Labs. Continue current medications Continue to monitor VS Monitor Diet/Nutritional support. Psych management per Psychiatry. Pain Management. PT/OT prn Safety precaution, Fall precaution, frequent nursing round. Supportive care. Continue collaborating with consulting specialists, case management and nursing team Nutritional Asmnt/Malnutr-PDOC - Dietary Evaluation Malnutrition Findings (Please click <Entered> for more info): Nutritional Asmnt/Malnutrition Start: 06/12/19 15: 50 Text: Status: Complete Freq: Protocol: Document 06/12/19 15:50 JOVAN (Rec: 06/12/19 15:53 JOVAN [email or web address]) Nutritional Asmnt/Malnutrition Patient General Information Nutritional Screening Low Risk Diagnosis Psychosis Pertinent Medical Hx/Surgical Hx HTN, CHF Subjective Information Pt is a 68-year-old female admitted on 06/06 from residential c/o YESIKA Lower Extremity edema x3 weeks. Pt is eating an estimated 90% of meals x 2 days (average) Per Meal/ Nutrition Activity Record. Dietary is currently providing an estimated 2450 kcals and 107 gm Pro, per Pt PO intake this is providing an estimated 2205 kcals and 96gm Pro to meet 100% kcal and 100+% Pro needs- adequate to meet estimated energy needs, Protein intake > estimated energy needs d/t renal labs () BUN/Cr 46/1.27, GFR 54. Recommend adding Renal to Pt diet order, spoke with Nurse Honey, stated she would discuss recommendation with MD . Pt was sleeping and covered with a blanket at time of visit. HT: 57 WT: 172 LB (78.18 kg) BMI: 26.63 (Overweight) GI: Soft, Non-tender BM: 06/11 x1 I/O: 180/Not Noted Skin: Dryness Oniel: 17 Diet Order: Mechanical Soft, BUFFY Estimated Energy Needs: (CKD stage 3, CBW) 4946-8661 kcals (28-30 kcals/ kg) 59-63g Pro (0.75-0.8g/kg) 9663-5892 ml (25-30 ml/kg) Current Diet Order/ Nutrition Support Mechanical Soft, BUFFY Pertinent Medications Vitamin C, Colace, Lasix, Synthroid, Cozaar, Zinc Sulfate Pertinent Labs 06/06: Hgb/Hct 9.8/29.6, Glucose 116, BUN/Cr 46/1.27, GFR 54, Alb 2.8 Nutritional Hx/Data Height 5 ft 7 in Height (Calculated Centimeters) 170.2 Current Weight (lbs) 172 lb Weight (Calculated Kilograms) 78.0 Weight (Calculated Grams) 70935.9 [place] Body Weight 135 LB (61.36 kg) % [place] Body Weight 127 Body Mass Index (BMI) 26.9 Weight Status Overweight GI Symptoms GI Symptoms None Last BM 06/11 x1 Skin Integrity/Comment: Skin: Dryness Oniel: 17 Current %PO Good (75-100%) Estimated Nutritional Goals BEE in Kcals: Using Current wt Calories/Kcals/Kg 28-30 Kcals Calculated 9428-0197 Protein: Using Current wt Protein g/k.75-0.8 Protein Calculated 59-63 Fluid: ml 9500-1339 ml (25-30 ml/kg) Nutritional Problem 1. Problem Problem Altered nutrition related labs Etiology r/t pathophysiological causes Signs/Symptoms: aeb renal labs (06/06) BUN/Cr 46/1.27, GFR 54. Malnutrition Related to Morbid Obesity Malnutrition related to morbid obesity No Intervention/Recommendation Comments 1. Continue with Mechanical Soft, BUFFY diet as ordered. 2. Consider Renal diet d/t renal labs (06/06) BUN/Cr 46/1. 27, GFR 54. Expected Outcomes/Goals Expected Outcomes/Goals 1. PO intake to continue to meet >75% of nutritional needs . 2. Monitor PO intake, wt, skin integrity and nutrition related labs to trend WNL. 3. F/U as moderate risk in 3-5 days, 10/5-06/18
[2019-06-16] MEDS: Hydrocodone/APAP 5mg/325mg Tab PO PRN (21:47)
[2019-06-17] MEDS: Levothyroxine 0.05 Mg Tab PO SCH (06:57)
--- NOTE | 2019-06-17 07:53 | Progress Notes ---
DATE: SUBJECTIVE: Chart reviewed and the patient interviewed. Also discussed the patient's condition with the staff and reviewed records and labs. The patient is still isolative and withdrawn and in a depressed mood. The patient also is still interacting minimally with others. The patient also wants to be left alone. Otherwise, the patient continued to comply with taking medications with no side effects of medications. ASSESSMENT: The patient is still irritable and is still confused and depressed. TREATMENT PLAN: Continue monitoring behavior and condition closely. Also, continue adjusting psychotropic medications and follow up closely. [facility]# [id number]
[2019-06-17] MEDS: Multivitamin w/ Minerals Tab PO SCH (08:25)
[2019-06-17] MEDS: Hydrocodone/APAP 5mg/325mg Tab PO PRN ×2 (08:25→16:51)
--- NOTE | 2019-06-17 10:34 | Internal Medicine Prog Note ---
Internal Medicine Subjective - Subjective Service Date: 06/17/19 Patient seen and examined:: with staff Patient is:: awake, verbal, agitated Patient Complaints of:: other (Anxious.) Per staff patient has:: no adverse event, no episodes of fall Internal Medicine Objective - Physical Exam Vitals and I&O: Vital Signs Temp 97.8 F 06/17/19 06:23 Pulse 79 06/17/19 06:23 Resp 20 06/17/19 06:23 BP 108/75 06/17/19 08:24 Pulse Ox 96 06/16/19 20:53 Intake & Output 06/16/19 06/17/19 06/17/19 18:59 06:59 18:59 Intake Total 1000 240 Balance 1000 240 Intake: Oral 1000 240 Other: # Voids 4 2 # Bowel Movements 1 0 Active Medications: Current Medications Acetaminophen (Tylenol) 650 mg PO Q4HR PRN PRN Reason: Mild Pain / Temp above 100 Stop: 08/06/19 04:11 Last Admin: 06/16/19 18:17 Dose: 650 mg Acetaminophen/Hydrocodone Bitart ([place] 5mg/325mg) 1 tab PO Q6H PRN PRN Reason: Pain (Severe) Stop: 08/15/19 21:04 Last Admin: 06/17/19 08:25 Dose: 1 tab Ascorbic Acid (Vitamin C) 500 mg PO DAILY [facility] Stop: 08/06/19 08:59 Last Admin: 06/17/19 08:25 Dose: 500 mg Docusate Sodium (Colace) 100 mg PO DAILY [facility] Stop: 08/06/19 08:59 Last Admin: 06/17/19 08:25 Dose: 100 mg Escitalopram Oxalate (Lexapro) 10 mg PO DAILY [facility]; Protocol Stop: 08/16/19 08:59 Last Admin: 06/17/19 09:19 Dose: 10 mg Furosemide (Lasix) 40 mg PO DAILY [facility] Stop: 08/06/19 08:59 Last Admin: 06/17/19 08:24 Dose: 40 mg Levothyroxine Sodium (Synthroid) 0.05 mg PO QDAC [facility] Stop: 08/06/19 07:29 Last Admin: 06/17/19 06:57 Dose: 0.05 mg Lorazepam (Ativan) 0.5 mg PO Q4HR PRN; Protocol PRN Reason: Anxiety Stop: 07/07/19 02:06 Losartan Potassium (Cozaar) 50 mg PO DAILY [facility] Stop: 08/06/19 08:59 Last Admin: 06/17/19 08:24 Dose: Not Given Quetiapine Fumarate (Seroquel) 175 mg PO BID [facility]; Protocol Stop: 08/12/19 08:59 Last Admin: 06/17/19 08:22 Dose: 175 mg Zinc Sulfate (Zinc Sulfate) 220 mg PO DAILY [facility] Stop: 08/06/19 08:59 Last Admin: 06/17/19 08:23 Dose: 220 mg Zolpidem Tartrate (Ambien) 5 mg PO HS PRN PRN Reason: Insomnia Stop: 08/06/19 02:06 Last Admin: 06/10/19 21:03 Dose: 5 mg Physical Exam: Patient remains very anxious, isolates herself, still very paranoid. General: demented, NAD HEENT: NC/AT Neck: Supple, No JVD Lungs: CTAB Cardiovascular: RRR Abdomen: soft, non-tender, non-distended Extremities: clear Neurological: no change Internal Medicine Assmt/Plan - Assessment Assessment: Poor impulse control. Agitation. Anxiety. Acute Psychosis. Bilateral lower extremity edema. History of CHF. History of Hypertension. - Plan Plan: Continuation of care. Psych management per Psych. Monitor vitals and labs. Continue present meds as directed. Continue present care management. Nutritional Asmnt/Malnutr-PDOC - Dietary Evaluation Malnutrition Findings (Please click <Entered> for more info): Nutritional Asmnt/Malnutrition Start: 06/12/19 15: 50 Text: Status: Complete Freq: Protocol: Document 06/12/19 15:50 JOVAN (Rec: 06/12/19 15:53 JOVAN [email or web address]) Nutritional Asmnt/Malnutrition Patient General Information Nutritional Screening Low Risk Diagnosis Psychosis Pertinent Medical Hx/Surgical Hx HTN, CHF Subjective Information Pt is a 68-year-old female admitted on 06/06 from [facility]/o YESIKA Lower Extremity edema x3 weeks. Pt is eating an estimated 90% of meals x 2 days (average) Per Meal/ Nutrition Activity Record. Dietary is currently providing an estimated 2450 kcals and 107 gm Pro, per Pt PO intake this is providing an estimated 2205 kcals and 96gm Pro to meet 100% kcal and 100+% Pro needs- adequate to meet estimated energy needs, Protein intake > estimated energy needs d/t renal labs () BUN/Cr 46/1.27, GFR 54. Recommend adding Renal to Pt diet order, spoke with Nurse Honey, stated she would discuss recommendation with MD . Pt was sleeping and covered with a blanket at time of visit. HT: 57 WT: 172 LB (78.18 kg) BMI: 26.63 (Overweight) GI: Soft, Non-tender BM: 06/11 x1 I/O: 180/Not Noted Skin: Dryness Oniel: 17 Diet Order: Mechanical Soft, BUFFY Estimated Energy Needs: (CKD stage 3, CBW) 1172-9684 kcals (28-30 kcals/ kg) 59-63g Pro (0.75-0.8g/kg) 6975-5762 ml (25-30 ml/kg) Current Diet Order/ Nutrition Support Mechanical Soft, BUFFY Pertinent Medications Vitamin C, Colace, Lasix, Synthroid, Cozaar, Zinc Sulfate Pertinent Labs 06/06: Hgb/Hct 9.8/29.6, Glucose 116, BUN/Cr 46/1.27, GFR 54, Alb 2.8 Nutritional Hx/Data Height 1.7 m Height (Calculated Centimeters) 170.2 Current Weight (lbs) 78.018 kg Weight (Calculated Kilograms) 78.0 Weight (Calculated Grams) 52204.9 [place] Body Weight 135 LB (61.36 kg) % [place] Body Weight 127 Body Mass Index (BMI) 26.9 Weight Status Overweight GI Symptoms GI Symptoms None Last BM 06/11 x1 Skin Integrity/Comment: Skin: Dryness Oniel: 17 Current %PO Good (75-100%) Estimated Nutritional Goals BEE in Kcals: Using Current wt Calories/Kcals/Kg 28-30 Kcals Calculated 6242-2038 Protein: Using Current wt Protein g/k.75-0.8 Protein Calculated 59-63 Fluid: ml 8112-8318 ml (25-30 ml/kg) Nutritional Problem 1. Problem Problem Altered nutrition related labs Etiology r/t pathophysiological causes Signs/Symptoms: aeb renal labs (06/06) BUN/Cr 46/1.27, GFR 54. Malnutrition Related to Morbid Obesity Malnutrition related to morbid obesity No Intervention/Recommendation Comments 1. Continue with Mechanical Soft, BUFFY diet as ordered. 2. Consider Renal diet d/t renal labs (06/06) BUN/Cr 46/1. 27, GFR 54. Expected Outcomes/Goals Expected Outcomes/Goals 1. PO intake to continue to meet >75% of nutritional needs . 2. Monitor PO intake, wt, skin integrity and nutrition related labs to trend WNL. 3. F/U as moderate risk in 3-5 days, 06/15-06/18
--- NOTE | 2019-06-17 10:40 | Internal Medicine Prog Note ---
Internal Medicine Subjective - Subjective Service Date: 06/17/19 Patient seen and examined:: with staff Patient is:: awake, verbal, agitated Patient Complaints of:: other (Anxious.) Per staff patient has:: no adverse event, no episodes of fall Internal Medicine Objective - Physical Exam Vitals and I&O: Vital Signs Temp 97.8 F 06/17/19 06:23 Pulse 79 06/17/19 06:23 Resp 20 06/17/19 06:23 BP 108/75 06/17/19 08:24 Pulse Ox 96 06/16/19 20:53 Intake & Output 06/16/19 06/17/19 06/17/19 18:59 06:59 18:59 Intake Total 1000 240 Balance 1000 240 Intake: Oral 1000 240 Other: # Voids 4 2 # Bowel Movements 1 0 Active Medications: Current Medications Acetaminophen (Tylenol) 650 mg PO Q4HR PRN PRN Reason: Mild Pain / Temp above 100 Stop: 08/06/19 04:11 Last Admin: 06/16/19 18:17 Dose: 650 mg Acetaminophen/Hydrocodone Bitart ([place] 5mg/325mg) 1 tab PO Q6H PRN PRN Reason: Pain (Severe) Stop: 08/15/19 21:04 Last Admin: 06/17/19 08:25 Dose: 1 tab Ascorbic Acid (Vitamin C) 500 mg PO DAILY [facility] Stop: 08/06/19 08:59 Last Admin: 06/17/19 08:25 Dose: 500 mg Docusate Sodium (Colace) 100 mg PO DAILY [facility] Stop: 08/06/19 08:59 Last Admin: 06/17/19 08:25 Dose: 100 mg Escitalopram Oxalate (Lexapro) 10 mg PO DAILY [facility]; Protocol Stop: 08/16/19 08:59 Last Admin: 06/17/19 09:19 Dose: 10 mg Furosemide (Lasix) 40 mg PO DAILY [facility] Stop: 08/06/19 08:59 Last Admin: 06/17/19 08:24 Dose: 40 mg Levothyroxine Sodium (Synthroid) 0.05 mg PO QDAC [facility] Stop: 08/06/19 07:29 Last Admin: 06/17/19 06:57 Dose: 0.05 mg Lorazepam (Ativan) 0.5 mg PO Q4HR PRN; Protocol PRN Reason: Anxiety Stop: 07/07/19 02:06 Losartan Potassium (Cozaar) 50 mg PO DAILY [facility] Stop: 08/06/19 08:59 Last Admin: 06/17/19 08:24 Dose: Not Given Quetiapine Fumarate (Seroquel) 175 mg PO BID [facility]; Protocol Stop: 08/12/19 08:59 Last Admin: 06/17/19 08:22 Dose: 175 mg Zinc Sulfate (Zinc Sulfate) 220 mg PO DAILY [facility] Stop: 08/06/19 08:59 Last Admin: 06/17/19 08:23 Dose: 220 mg Zolpidem Tartrate (Ambien) 5 mg PO HS PRN PRN Reason: Insomnia Stop: 08/06/19 02:06 Last Admin: 06/10/19 21:03 Dose: 5 mg Physical Exam: Patient is in irritable and depressed mood, keeps to herself, remains paranoid.. General: demented, NAD HEENT: NC/AT Neck: Supple, No JVD Lungs: CTAB Cardiovascular: RRR Abdomen: soft, non-tender, non-distended Extremities: clear Neurological: no change Internal Medicine Assmt/Plan - Assessment Assessment: Poor impulse control. Agitation. Anxiety. Acute Psychosis. Bilateral lower extremity edema. History of CHF. History of Hypertension. - Plan Plan: Continuation of care. Psych management per Psych. Monitor vitals and labs. Continue present meds as directed. Continue present care management. Nutritional Asmnt/Malnutr-PDOC - Dietary Evaluation Malnutrition Findings (Please click <Entered> for more info): Nutritional Asmnt/Malnutrition Start: 06/12/19 15: 50 Text: Status: Complete Freq: Protocol: Document 06/12/19 15:50 JOVAN (Rec: 06/12/19 15:53 JOVAN [email or web address]) Nutritional Asmnt/Malnutrition Patient General Information Nutritional Screening Low Risk Diagnosis Psychosis Pertinent Medical Hx/Surgical Hx HTN, CHF Subjective Information Pt is a 68-year-old female [facility]IKA Lower Extremity edema x3 weeks. Pt is eating an estimated 90% of meals x 2 days (average) Per Meal/ Nutrition Activity Record. Dietary is currently providing an estimated 2450 kcals and 107 gm Pro, per Pt PO intake this is providing an estimated 2205 kcals and 96gm Pro to meet 100% kcal and 100+% Pro needs- adequate to meet estimated energy needs, Protein intake > estimated energy needs d/t renal labs () BUN/Cr 46/1.27, GFR 54. Recommend adding Renal to Pt diet order, spoke with Nurse Honey, stated she would discuss recommendation with MD . Pt was sleeping and covered with a blanket at time of visit. HT: 57 WT: 172 LB (78.18 kg) BMI: 26.63 (Overweight) GI: Soft, Non-tender BM: 06/11 x1 I/O: 180/Not Noted Skin: Dryness Oniel: 17 Diet Order: Mechanical Soft, BUFFY Estimated Energy Needs: (CKD stage 3, CBW) 4252-3421 kcals (28-30 kcals/ kg) 59-63g Pro (0.75-0.8g/kg) 3652-1564 ml (25-30 ml/kg) Current Diet Order/ Nutrition Support Mechanical Soft, BUFFY Pertinent Medications Vitamin C, Colace, Lasix, Synthroid, Cozaar, Zinc Sulfate Pertinent Labs 06/06: Hgb/Hct 9.8/29.6, Glucose 116, BUN/Cr 46/1.27, GFR 54, Alb 2.8 Nutritional Hx/Data Height 1.7 m Height (Calculated Centimeters) 170.2 Current Weight (lbs) 78.018 kg Weight (Calculated Kilograms) 78.0 Weight (Calculated Grams) 79290.9 [place] Body Weight 135 LB (61.36 kg) % [place] Body Weight 127 Body Mass Index (BMI) 26.9 Weight Status Overweight GI Symptoms GI Symptoms None Last BM 06/11 x1 Skin Integrity/Comment: Skin: Dryness Oniel: 17 Current %PO Good (75-100%) Estimated Nutritional Goals BEE in Kcals: Using Current wt Calories/Kcals/Kg 28-30 Kcals Calculated 7654-5149 Protein: Using Current wt Protein g/k.75-0.8 Protein Calculated 59-63 Fluid: ml 6352-8006 ml (25-30 ml/kg) Nutritional Problem 1. Problem Problem Altered nutrition related labs Etiology r/t pathophysiological causes Signs/Symptoms: aeb renal labs (06/06) BUN/Cr 46/1.27, GFR 54. Malnutrition Related to Morbid Obesity Malnutrition related to morbid obesity No Intervention/Recommendation Comments 1. Continue with Mechanical Soft, BUFFY diet as ordered. 2. Consider Renal diet d/t renal labs (06/06) BUN/Cr 46/1. 27, GFR 54. Expected Outcomes/Goals Expected Outcomes/Goals 1. PO intake to continue to meet >75% of nutritional needs . 2. Monitor PO intake, wt, skin integrity and nutrition related labs to trend WNL. 3. F/U as moderate risk in 3-5 days, 06/15-06/18
--- NOTE | 2019-06-17 12:03 | Diagnostic Imaging Report ---
Left knee 4 views Indication: pain Comparison: none Findings: Mild degenerative changes are noted. There is mild narrowing of the medial knee compartment. No evidence of acute fracture or joint effusion. Osteopenia is noted. Note that the proximal lateral fibula is incompletely visualized on the lateral views. Impression: Mild degenerative changes Osteopenia. Note that the proximal lateral fibula was incompletely imaged on the lateral views. In the setting of trauma, if clinical symptoms persist and there is continued concern for an occult fracture, follow up exams in 5-7 days is suggested.
--- NOTE | 2019-06-17 21:25 | Progress Notes ---
DATE: 06/17/2019 SUBJECTIVE: Chart reviewed and the patient interviewed. Also discussed the patient's condition with the staff and reviewed records and labs. The patient continued to be confused and depressed. The patient also is still isolative and withdrawn and interacting minimally with peers and with others. She also is still having severe mood swings. The patient also wants to be left alone. She otherwise is compliant with taking medications, with no side effects. MENTAL STATUS EXAMINATION: The patient is calm and cooperative, but still severely depressed and minimum interaction. She denies suicidal or homicidal ideations. ASSESSMENT: The patient is still severely depressed. TREATMENT PLAN: We will increase Lexapro to 10 mg every day, and we will continue Seroquel in a dose of 175 mg twice a day. Also, continue on discharge plans and followup. [facility]# [id number]
[2019-06-18] MEDS: Levothyroxine 0.05 Mg Tab PO SCH (06:36)
[2019-06-18] MEDS: Multivitamin w/ Minerals Tab PO SCH (08:41)
--- NOTE | 2019-06-18 14:16 | Internal Medicine Prog Note ---
Internal Medicine Subjective - Subjective Service Date: 06/18/19 Patient seen and examined:: with staff Patient is:: awake, verbal, agitated Patient Complaints of:: other (Remains very Anxious.) Per staff patient has:: no adverse event, no episodes of fall Internal Medicine Objective - Physical Exam Vitals and I&O: Vital Signs Temp 96.8 F 06/18/19 06:42 Pulse 81 06/18/19 08:42 Resp 20 06/18/19 06:42 BP 106/73 06/18/19 08:43 Pulse Ox 100 06/18/19 06:42 Intake & Output 06/17/19 06/18/19 06/18/19 18:59 06:59 18:59 Intake Total 1000 60 Balance 1000 60 Intake: Oral 1000 60 Other: # Voids 3 3 # Bowel Movements 1 0 Active Medications: Current Medications Acetaminophen (Tylenol) 650 mg PO Q4HR PRN PRN Reason: Mild Pain / Temp above 100 Stop: 08/06/19 04:11 Last Admin: 06/16/19 18:17 Dose: 650 mg Acetaminophen/Hydrocodone Bitart ([place] 5mg/325mg) 1 tab PO Q6H PRN PRN Reason: Pain (Severe) Stop: 08/15/19 21:04 Last Admin: 06/17/19 16:51 Dose: 1 tab Ascorbic Acid (Vitamin C) 500 mg PO DAILY [facility] Stop: 08/06/19 08:59 Last Admin: 06/18/19 08:41 Dose: 500 mg Docusate Sodium (Colace) 100 mg PO DAILY JUAN DAVID Stop: 08/06/19 08:59 Last Admin: 06/18/19 08:43 Dose: 100 mg Escitalopram Oxalate (Lexapro) 10 mg PO DAILY JUAN DAVID; Protocol Stop: 08/16/19 08:59 Last Admin: 06/18/19 08:40 Dose: 10 mg Furosemide (Lasix) 40 mg PO DAILY JUAN DAVID Stop: 08/06/19 08:59 Last Admin: 06/18/19 08:43 Dose: 40 mg Levothyroxine Sodium (Synthroid) 0.05 mg PO QDAC JUAN DAVID Stop: 08/06/19 07:29 Last Admin: 06/18/19 06:36 Dose: 0.05 mg Lorazepam (Ativan) 0.5 mg PO Q4HR PRN; Protocol PRN Reason: Anxiety Stop: 07/07/19 02:06 Losartan Potassium (Cozaar) 50 mg PO DAILY JUAN DAVID Stop: 08/06/19 08:59 Last Admin: 06/18/19 08:42 Dose: 50 mg Quetiapine Fumarate 100 mg/ (Quetiapine Fumarate 50 mg) 150 mg PO BID JUAN DAVID Stop: 08/17/19 08:59 Last Admin: 06/18/19 08:42 Dose: 150 mg Zinc Sulfate (Zinc Sulfate) 220 mg PO DAILY JUAN DAVID Stop: 08/06/19 08:59 Last Admin: 06/18/19 08:41 Dose: 220 mg Zolpidem Tartrate (Ambien) 5 mg PO HS PRN PRN Reason: Insomnia Stop: 08/06/19 02:06 Last Admin: 06/10/19 21:03 Dose: 5 mg Physical Exam: Patient c/o left knee pain. General: demented, NAD HEENT: NC/AT Neck: Supple, No JVD Lungs: CTAB Cardiovascular: RRR Abdomen: soft, non-tender, non-distended Extremities: pain, other (eft knee pain.) Neurological: no change Internal Medicine Assmt/Plan - Assessment Assessment: Poor impulsive control. Agitation. Anxiety. Acute Psychosis. Bilateral lower extremity edema. History of CHF. History of HTN. - Plan Plan: CPM Nutritional Asmnt/Malnutr-PDOC - Dietary Evaluation Malnutrition Findings (Please click <Entered> for more info): Nutritional Asmnt/Malnutrition Start: 06/12/19 15: 50 Text: Status: Complete Freq: Protocol: Document 06/12/19 15:50 JOVAN (Rec: 06/12/19 15:53 JOVAN [email or web address]) Nutritional Asmnt/Malnutrition Patient General Information Nutritional Screening Low Risk Diagnosis Psychosis Pertinent Medical Hx/Surgical Hx HTN, CHF Subjective Information Pt is a 68-year-old female admitted on 06/06 from shelter c/o YESIKA Lower Extremity edema x3 weeks. Pt is eating an estimated 90% of meals x 2 days (average) Per Meal/ Nutrition Activity Record. Dietary is currently providing an estimated 2450 kcals and 107 gm Pro, per Pt PO intake this is providing an estimated 2205 kcals and 96gm Pro to meet 100% kcal and 100+% Pro needs- adequate to meet estimated energy needs, Protein intake > estimated energy needs d/t renal labs () BUN/Cr 46/1.27, GFR 54. Recommend adding Renal to Pt diet order, spoke with Nurse Honey, stated she would discuss recommendation with MD . Pt was sleeping and covered with a blanket at time of visit. HT: 57 WT: 172 LB (78.18 kg) BMI: 26.63 (Overweight) GI: Soft, Non-tender BM: 06/11 x1 I/O: 180/Not Noted Skin: Dryness Oniel: 17 Diet Order: Mechanical Soft, BUFFY Estimated Energy Needs: (CKD stage 3, CBW) 7355-8302 kcals (28-30 kcals/ kg) 59-63g Pro (0.75-0.8g/kg) 9238-4634 ml (25-30 ml/kg) Current Diet Order/ Nutrition Support Mechanical Soft, BUFFY Pertinent Medications Vitamin C, Colace, Lasix, Synthroid, Cozaar, Zinc Sulfate Pertinent Labs 06/06: Hgb/Hct 9.8/29.6, Glucose 116, BUN/Cr 46/1.27, GFR 54, Alb 2.8 Nutritional Hx/Data Height 1.7 m Height (Calculated Centimeters) 170.2 Current Weight (lbs) 78.018 kg Weight (Calculated Kilograms) 78.0 Weight (Calculated Grams) 04241.9 [place] Body Weight 135 LB (61.36 kg) % [place] Body Weight 127 Body Mass Index (BMI) 26.9 Weight Status Overweight GI Symptoms GI Symptoms None Last BM 06/11 x1 Skin Integrity/Comment: Skin: Dryness Oniel: 17 Current %PO Good (75-100%) Estimated Nutritional Goals BEE in Kcals: Using Current wt Calories/Kcals/Kg 28-30 Kcals Calculated 6311-3101 Protein: Using Current wt Protein g/k.75-0.8 Protein Calculated 59-63 Fluid: ml 9761-6318 ml (25-30 ml/kg) Nutritional Problem 1. Problem Problem Altered nutrition related labs Etiology r/t pathophysiological causes Signs/Symptoms: aeb renal labs (06/06) BUN/Cr 46/1.27, GFR 54. Malnutrition Related to Morbid Obesity Malnutrition related to morbid obesity No Intervention/Recommendation Comments 1. Continue with Mechanical Soft, BUFFY diet as ordered. 2. Consider Renal diet d/t renal labs (06/06) BUN/Cr 46/1. 27, GFR 54. Expected Outcomes/Goals Expected Outcomes/Goals 1. PO intake to continue to meet >75% of nutritional needs . 2. Monitor PO intake, wt, skin integrity and nutrition related labs to trend WNL. 3. F/U as moderate risk in 3-5 days, 06/15-06/18
--- NOTE | 2019-06-18 15:54 | Internal Medicine Prog Note ---
Internal Medicine Subjective - Subjective Service Date: 06/18/19 Patient is:: awake, verbal, agitated Patient Complaints of:: other (Remains very Anxious.) Per staff patient has:: no adverse event, no episodes of fall Internal Medicine Objective - Physical Exam Vitals and I&O: Vital Signs Temp 97.1 F 06/18/19 14:42 Pulse 91 06/18/19 14:42 Resp 19 06/18/19 14:42 BP 109/56 06/18/19 14:42 Pulse Ox 99 06/18/19 14:42 Intake & Output 06/17/19 06/18/19 06/18/19 18:59 06:59 18:59 Intake Total 1000 60 Balance 1000 60 Intake: Oral 1000 60 Other: # Voids 3 3 # Bowel Movements 1 0 Active Medications: Current Medications Acetaminophen (Tylenol) 650 mg PO Q4HR PRN PRN Reason: Mild Pain / Temp above 100 Stop: 08/06/19 04:11 Last Admin: 06/16/19 18:17 Dose: 650 mg Acetaminophen/Hydrocodone Bitart ([place] 5mg/325mg) 1 tab PO Q6H PRN PRN Reason: Pain (Severe) Stop: 08/15/19 21:04 Last Admin: 06/17/19 16:51 Dose: 1 tab Ascorbic Acid (Vitamin C) 500 mg PO DAILY [facility] Stop: 08/06/19 08:59 Last Admin: 06/18/19 08:41 Dose: 500 mg Docusate Sodium (Colace) 100 mg PO DAILY [facility] Stop: 08/06/19 08:59 Last Admin: 06/18/19 08:43 Dose: 100 mg Escitalopram Oxalate (Lexapro) 10 mg PO DAILY JUAN DAVID; Protocol Stop: 08/16/19 08:59 Last Admin: 06/18/19 08:40 Dose: 10 mg Furosemide (Lasix) 40 mg PO DAILY [facility] Stop: 08/06/19 08:59 Last Admin: 06/18/19 08:43 Dose: 40 mg Levothyroxine Sodium (Synthroid) 0.05 mg PO QDAC [facility] Stop: 08/06/19 07:29 Last Admin: 06/18/19 06:36 Dose: 0.05 mg Lorazepam (Ativan) 0.5 mg PO Q4HR PRN; Protocol PRN Reason: Anxiety Stop: 07/07/19 02:06 Losartan Potassium (Cozaar) 50 mg PO DAILY JUAN DAVID Stop: 08/06/19 08:59 Last Admin: 06/18/19 08:42 Dose: 50 mg Quetiapine Fumarate 100 mg/ (Quetiapine Fumarate 50 mg) 150 mg PO BID JUAN DAVID Stop: 08/17/19 08:59 Last Admin: 06/18/19 08:42 Dose: 150 mg Zinc Sulfate (Zinc Sulfate) 220 mg PO DAILY JUAN DAVID Stop: 08/06/19 08:59 Last Admin: 06/18/19 08:41 Dose: 220 mg Zolpidem Tartrate (Ambien) 5 mg PO HS PRN PRN Reason: Insomnia Stop: 08/06/19 02:06 Last Admin: 06/10/19 21:03 Dose: 5 mg General: demented, NAD HEENT: NC/AT Neck: Supple, No JVD Lungs: CTAB Cardiovascular: RRR Abdomen: soft, non-tender, non-distended Extremities: pain, other (eft knee pain.) Neurological: no change Internal Medicine Assmt/Plan - Assessment Assessment: Agitation Anxiety Acute Psychosis Hx CHF Hx HTN - Plan Plan: Continue current treatment plan. Monitor Labs. Continue current medications Continue to monitor VS Monitor Diet/Nutritional support. Psych management per Psychiatry. Pain Management. PT/OT prn Safety precaution, Fall precaution, frequent nursing round. Supportive care. Continue collaborating with consulting specialists, case management and nursing team Nutritional Asmnt/Malnutr-PDOC - Dietary Evaluation Malnutrition Findings (Please click <Entered> for more info): Nutritional Asmnt/Malnutrition Start: 06/12/19 15: 50 Text: Status: Complete Freq: Protocol: Document 06/12/19 15:50 JOVAN (Rec: 06/12/19 15:53 JOVAN [email or web address]) Nutritional Asmnt/Malnutrition Patient General Information Nutritional Screening Low Risk Diagnosis Psychosis Pertinent Medical Hx/Surgical Hx HTN, CHF Subjective Information Pt is a 68-year-old female admitted on 06/06 from shelter c/o YESIKA Lower Extremity edema x3 weeks. Pt is eating an estimated 90% of meals x 2 days (average) Per Meal/ Nutrition Activity Record. Dietary is currently providing an estimated 2450 kcals and 107 gm Pro, per Pt PO intake this is providing an estimated 2205 kcals and 96gm Pro to meet 100% kcal and 100+% Pro needs- adequate to meet estimated energy needs, Protein intake > estimated energy needs d/t renal labs () BUN/Cr 46/1.27, GFR 54. Recommend adding Renal to Pt diet order, spoke with Nurse Honey, stated she would discuss recommendation with MD . Pt was sleeping and covered with a blanket at time of visit. HT: 57 WT: 172 LB (78.18 kg) BMI: 26.63 (Overweight) GI: Soft, Non-tender BM: 06/11 x1 I/O: 180/Not Noted Skin: Dryness Oniel: 17 Diet Order: Mechanical Soft, BUFFY Estimated Energy Needs: (CKD stage 3, CBW) 1013-9736 kcals (28-30 kcals/ kg) 59-63g Pro (0.75-0.8g/kg) 3438-0793 ml (25-30 ml/kg) Current Diet Order/ Nutrition Support Mechanical Soft, BUFFY Pertinent Medications Vitamin C, Colace, Lasix, Synthroid, Cozaar, Zinc Sulfate Pertinent Labs 06/06: Hgb/Hct 9.8/29.6, Glucose 116, BUN/Cr 46/1.27, GFR 54, Alb 2.8 Nutritional Hx/Data Height 5 ft 7 in Height (Calculated Centimeters) 170.2 Current Weight (lbs) 172 lb Weight (Calculated Kilograms) 78.0 Weight (Calculated Grams) 78724.9 [place] Body Weight 135 LB (61.36 kg) % [place] Body Weight 127 Body Mass Index (BMI) 26.9 Weight Status Overweight GI Symptoms GI Symptoms None Last BM 06/11 x1 Skin Integrity/Comment: Skin: Dryness Oniel: 17 Current %PO Good (75-100%) Estimated Nutritional Goals BEE in Kcals: Using Current wt Calories/Kcals/Kg 28-30 Kcals Calculated 0725-7297 Protein: Using Current wt Protein g/k.75-0.8 Protein Calculated 59-63 Fluid: ml 9874-9531 ml (25-30 ml/kg) Nutritional Problem 1. Problem Problem Altered nutrition related labs Etiology r/t pathophysiological causes Signs/Symptoms: aeb renal labs (06/06) BUN/Cr 46/1.27, GFR 54. Malnutrition Related to Morbid Obesity Malnutrition related to morbid obesity No Intervention/Recommendation Comments 1. Continue with Mechanical Soft, BUFFY diet as ordered. 2. Consider Renal diet d/t renal labs (06/06) BUN/Cr 46/1. 27, GFR 54. Expected Outcomes/Goals Expected Outcomes/Goals 1. PO intake to continue to meet >75% of nutritional needs . 2. Monitor PO intake, wt, skin integrity and nutrition related labs to trend WNL. 3. F/U as moderate risk in 3-5 days, 06/15-06/18
--- NOTE | 2019-06-18 22:21 | Progress Notes ---
DATE: 06/18/2019 SUBJECTIVE: Chart reviewed and the patient interviewed. Also discussed the patient's condition with the staff and reviewed records and labs. The patient continued to be confused and forgetful. The patient also is still easily irritable. She also is still agitated, but at the same time, she is spending a lot of time sleeping. The patient also is forgetful and seems to be in a depressed mood. No side effects of medications except the patient seems to be slightly sedated. She is irritable when she is awake. ASSESSMENT: The patient still needs medication adjustment. TREATMENT PLAN: We will decrease Seroquel to 150 mg at bedtime. Also, continue to work on discharge plans and if placement is questionable. [facility]# [id number]
[2019-06-19] MEDS: Levothyroxine 0.05 Mg Tab PO SCH (06:35)
[2019-06-19] MEDS: Multivitamin w/ Minerals Tab PO SCH (09:16)
--- NOTE | 2019-06-19 13:09 | Internal Medicine Prog Note ---
Internal Medicine Subjective - Subjective Service Date: 06/19/19 Patient seen and examined:: with staff Patient is:: awake, verbal, agitated Patient Complaints of:: other (Remains very Anxious.) Per staff patient has:: no adverse event, no episodes of fall Internal Medicine Objective - Physical Exam Vitals and I&O: Vital Signs Temp 97.3 F 06/19/19 06:04 Pulse 87 06/19/19 06:04 Resp 20 06/19/19 06:04 BP 109/62 06/19/19 06:04 Pulse Ox 95 06/19/19 06:04 Intake & Output 06/18/19 06/19/19 06/19/19 18:59 06:59 18:59 Intake Total 900 180 Balance 900 180 Intake: Oral 900 180 Other: # Voids 3 2 # Bowel Movements 1 1 Active Medications: Current Medications Acetaminophen (Tylenol) 650 mg PO Q4HR PRN PRN Reason: Mild Pain / Temp above 100 Stop: 08/06/19 04:11 Last Admin: 06/16/19 18:17 Dose: 650 mg Acetaminophen/Hydrocodone Bitart ([place] 5mg/325mg) 1 tab PO Q6H PRN PRN Reason: Pain (Severe) Stop: 08/15/19 21:04 Last Admin: 06/17/19 16:51 Dose: 1 tab Ascorbic Acid (Vitamin C) 500 mg PO DAILY [facility] Stop: 08/06/19 08:59 Last Admin: 06/19/19 09:14 Dose: 500 mg Docusate Sodium (Colace) 100 mg PO DAILY JUAN DAVID Stop: 08/06/19 08:59 Last Admin: 06/19/19 09:16 Dose: 100 mg Escitalopram Oxalate (Lexapro) 10 mg PO DAILY JUAN DAVID; Protocol Stop: 08/16/19 08:59 Last Admin: 06/19/19 09:14 Dose: 10 mg Furosemide (Lasix) 40 mg PO DAILY [facility] Stop: 08/06/19 08:59 Last Admin: 06/19/19 09:00 Dose: Not Given Levothyroxine Sodium (Synthroid) 0.05 mg PO QDAC JUAN DAVID Stop: 08/06/19 07:29 Last Admin: 06/19/19 06:35 Dose: 0.05 mg Lorazepam (Ativan) 0.5 mg PO Q4HR PRN; Protocol PRN Reason: Anxiety Stop: 07/07/19 02:06 Losartan Potassium (Cozaar) 50 mg PO DAILY JUAN DAVID Stop: 08/06/19 08:59 Last Admin: 06/19/19 09:00 Dose: Not Given Quetiapine Fumarate 100 mg/ (Quetiapine Fumarate 50 mg) 150 mg PO BID JUAN DAVID Stop: 08/17/19 08:59 Last Admin: 06/19/19 09:14 Dose: 150 mg Zinc Sulfate (Zinc Sulfate) 220 mg PO DAILY JUAN DAVID Stop: 08/06/19 08:59 Last Admin: 06/19/19 09:15 Dose: 220 mg Zolpidem Tartrate (Ambien) 5 mg PO HS PRN PRN Reason: Insomnia Stop: 08/06/19 02:06 Last Admin: 06/10/19 21:03 Dose: 5 mg Physical Exam: Patient is anxious and agitated. General: demented, NAD HEENT: NC/AT Neck: Supple, No JVD Lungs: CTAB Cardiovascular: RRR Abdomen: soft, non-tender, non-distended Extremities: pain, other (eft knee pain.) Neurological: no change Internal Medicine Assmt/Plan - Assessment Assessment: Poor impulsive control. Agitation. Anxiety. Acute Psychosis. Bilateral lower extremity edema. History of CHF. History of HTN. - Plan Plan: CPM Nutritional Asmnt/Malnutr-PDOC - Dietary Evaluation Malnutrition Findings (Please click <Entered> for more info): Nutritional Asmnt/Malnutrition Start: 06/12/19 15: 50 Text: Status: Complete Freq: Protocol: Document 06/12/19 15:50 JOVAN (Rec: 06/12/19 15:53 JOVAN [email or web address]) Nutritional Asmnt/Malnutrition Patient General Information Nutritional Screening Low Risk Diagnosis Psychosis Pertinent Medical Hx/Surgical Hx HTN, CHF Subjective Information Pt is a 68-year-old female admitted [facility] from [facility]/o YESIKA Lower Extremity edema x3 weeks. Pt is eating an estimated 90% of meals x 2 days (average) Per Meal/ Nutrition Activity Record. Dietary is currently providing an estimated 2450 kcals and 107 gm Pro, per Pt PO intake this is providing an estimated 2205 kcals and 96gm Pro to meet 100% kcal and 100+% Pro needs- adequate to meet estimated energy needs, Protein intake > estimated energy needs d/t renal labs () BUN/Cr 46/1.27, GFR 54. Recommend adding Renal to Pt diet order, spoke with Nurse Honey, stated she would discuss recommendation with MD . Pt was sleeping and covered with a blanket at time of visit. HT: 57 WT: 172 LB (78.18 kg) BMI: 26.63 (Overweight) GI: Soft, Non-tender BM: 06/11 x1 I/O: 180/Not Noted Skin: Dryness Oniel: 17 Diet Order: Mechanical Soft, BUFFY Estimated Energy Needs: (CKD stage 3, CBW) 8361-0802 kcals (28-30 kcals/ kg) 59-63g Pro (0.75-0.8g/kg) 6910-9994 ml (25-30 ml/kg) Current Diet Order/ Nutrition Support Mechanical Soft, BUFFY Pertinent Medications Vitamin C, Colace, Lasix, Synthroid, Cozaar, Zinc Sulfate Pertinent Labs 06/06: Hgb/Hct 9.8/29.6, Glucose 116, BUN/Cr 46/1.27, GFR 54, Alb 2.8 Nutritional Hx/Data Height 1.7 m Height (Calculated Centimeters) 170.2 Current Weight (lbs) 78.018 kg Weight (Calculated Kilograms) 78.0 Weight (Calculated Grams) 53069.9 [place] Body Weight 135 LB (61.36 kg) % [place] Body Weight 127 Body Mass Index (BMI) 26.9 Weight Status Overweight GI Symptoms GI Symptoms None Last BM 06/11 x1 Skin Integrity/Comment: Skin: Dryness Oniel: 17 Current %PO Good (75-100%) Estimated Nutritional Goals BEE in Kcals: Using Current wt Calories/Kcals/Kg 28-30 Kcals Calculated 3073-0877 Protein: Using Current wt Protein g/k.75-0.8 Protein Calculated 59-63 Fluid: ml 4704-6570 ml (25-30 ml/kg) Nutritional Problem 1. Problem Problem Altered nutrition related labs Etiology r/t pathophysiological causes Signs/Symptoms: aeb renal labs (06/06) BUN/Cr 46/1.27, GFR 54. Malnutrition Related to Morbid Obesity Malnutrition related to morbid obesity No Intervention/Recommendation Comments 1. Continue with Mechanical Soft, BUFFY diet as ordered. 2. Consider Renal diet d/t renal labs (06/06) BUN/Cr 46/1. 27, GFR 54. Expected Outcomes/Goals Expected Outcomes/Goals 1. PO intake to continue to meet >75% of nutritional needs . 2. Monitor PO intake, wt, skin integrity and nutrition related labs to trend WNL. 3. F/U as moderate risk in 3-5 days, 06/15-06/18
--- NOTE | 2019-06-19 22:27 | Progress Notes ---
DATE: 06/19/2019 SUBJECTIVE: Chart reviewed and the patient interviewed. Also discussed the patient's condition with the staff and reviewed records and labs. The patient continued to be severely depressed and she is still withdrawn and isolative. The patient also is interacting minimally with others and she wanted to be left alone. The patient on the other hand seems to be slightly calmer and less agitated and less irritable. ASSESSMENT: The patient is still depressed, but less sedated since Seroquel was decreased. TREATMENT PLAN: We will continue Lexapro and will continue Namenda. We will continue to follow up. JOB# [id number]
[2019-06-20] MEDS: Levothyroxine 0.05 Mg Tab PO SCH (06:47)
[2019-06-20] MEDS: Multivitamin w/ Minerals Tab PO SCH (09:20)
== END 2019-06-20 16:03 | DRG 885 ==
LOC: GERO 23:57
PROVIDERS: ADMIT Psychiatry & Neurology Psychiatry; ATTEND Psychiatry & Neurology Psychiatry
DX: F20.9 Schizophrenia, unspecified (principal); I11.0 Hypertensive heart disease with heart failure; F39 Unspecified mood [affective] disorder; I50.9 Heart failure, unspecified; F41.9 Anxiety disorder, unspecified; R45.1 Restlessness and agitation; F32.9 Major depressive disorder, single episode, unspecified; F63.89 Other impulse disorders; Z79.899 Other long term (current) drug therapy; Z88.6 Allergy status to analgesic agent; Z88.0 Allergy status to penicillin; Z88.8 Allergy status to other drugs, medicaments and biological substances
CPT/HCPCS: 73562-TC-LT; Z7610

== ENCOUNTER 2019-08-30 18:20 | Inpatient (IN) | payer MEDICARE, OTHER ==
[2019-08-31] MEDS ORDERED: Magnesium Hydroxide (MOM) 30 mL UDC PO PRN (01:47)
[2019-08-31] MEDS ORDERED: Maalox 30 mL Cup PO PRN (01:47)
--- NOTE | 2019-08-31 05:46 | Psychiatric Evaluation ---
DATE OF SERVICE: PSYCHIATRIC INITIAL EVALUATION AND MENTAL STATUS EXAM AGE: 68. SEX: Female. PHYSICIAN: Dr. Oakley. CHIEF COMPLAINT: Agitation and irritability. HISTORY OF PRESENT ILLNESS: The patient is a 68-year-old female who has been under my care in [facility]. The patient has been extremely irritable and agitated and has been demanding and paranoid. The patient also has been verbally abusive to staff and also has been easily agitated. The patient also has been uncooperative with her care and also has been threatening to bibiana everybody in the staff. The patient also has been paranoid about man and has been saying that "I hate man." She also has been having grandiose delusions, thinking that she worked in the [employer] for 15 years and that she is currently familiar with all legal issues. Also, when I evaluated her a few days ago in the facility, the patient said that she is from her for many years and she hates him because he was abusing cocaine, but it was questionable that he came to visit her and that he gave her unknown object or chemicals that she may be swallowed. She became more delusional and paranoid after that. PAST PSYCHIATRIC HISTORY: The patient has long history of what seems to be schizoaffective disorder and the patient has been taking Haldol and I started her on Seroquel. PAST MEDICAL HISTORY: The patient has history of heart failure and the patient has swollen legs. She also has hypertension, arthritis and hypothyroidism. SOCIAL HISTORY: The patient is , but from her . She has children, but she is not in touch with them. The patient smokes about half pack of cigarette per day. She denies alcohol or drug use. ALLERGIES: ASPIRIN, IBUPROFEN and PENICILLIN. MENTAL STATUS EXAMINATION: The patient appears slightly older than her stated age. Angry and irritable moods. Demanding. Difficulty seeing but wearing prescription glasses. The patient denies auditory or visual hallucinations, but seems to be paranoid. The patient denies any thoughts of suicide or homicide. The patient is alert and oriented to time, place, person, and situation. Intact immediate, recent and remote memories. Poor insight and poor judgment. Seems to be of average intelligence based on her verbal ability ASSESSMENT: PRIMARY DIAGNOSIS: Schizoaffective disorder, schizophrenic type, severe, with psychotic features. MEDICAL DIAGNOSES: 1. Hypertension. 2. Hypothyroidism. 3. Heart failure. TREATMENT PLAN: We will continue Haldol Decanoate as well as Seroquel and we will adjust the dose of Seroquel. Also, we will start individual as well as milieu psychotherapy and work on behavioral modification. ESTIMATED LENGTH OF STAY: 5-7 days. PATIENT'S STRENGTHS AND WEAKNESSES: The patient's strength is not clear at this time. Weaknesses are her poor judgment and her ineffective coping, also her paranoia. AFTER DISCHARGE PLAN: The patient will return to [facility] and outpatient treatment and followup. We will continue as an outpatient. CRITERIA FOR DISCHARGE: Stabilize psychotropic medications and establish outpatient treatment plans. JOB# [id number]
[2019-08-31] MEDS: Levothyroxine 0.05 Mg Tab PO SCH (06:51)
--- NOTE | 2019-08-31 08:45 | History & Physical ---
ADMIT DATE: 08/31/2019 CHIEF COMPLAINT: Agitation and irritability. HISTORY OF PRESENT ILLNESS: This is a 68-year-old female who was originally admitted from a long-term facility, transferred to [facility] Emergency Room due to increase in agitation and irritability. Once medically cleared, the patient was transferred to [facility]iatric Unit for further psychiatric management. According to reports, the patient started to be aggressive and verbally abusive towards the staff from the long-term facility, threatening everyone. No reported suicidal or homicidal ideation. No thoughts. REVIEW OF SYSTEMS: GENERAL: This is a 68-year-old female. No fever, no weakness. HEAD: No headache. No dizziness. EYES: No eye pain, no blurring of vision. NECK: No neck pain, no nuchal rigidity. CHEST: No chest pain or palpitation. PULMONARY: No coughing. No shortness of breath. GASTROINTESTINAL: No abdominal pain, no constipation or diarrhea. MUSCULOSKELETAL: No joint pain. No muscle pain. SOCIAL HISTORY: The patient lives in a long-term facility prior to hospitalization. History of polysubstance abuse. Nicotine dependence. Denies any alcohol abuse. FAMILY HISTORY: Unremarkable. PAST SURGICAL HISTORY: Unremarkable. PAST MEDICAL HISTORY: Includes hypertension, hyperlipidemia, osteoarthritis, hypothyroidism and heart failure. PHYSICAL EXAMINATION: VITAL SIGNS: Temperature 97.8, heart rate 98, blood pressure 150/86, respirations 19, 94% on room air. GENERAL: This is a 68-year-old female that appears as stated in no acute distress. HEENT: Head is atraumatic and normocephalic. Eyes: Bilateral conjunctivae are clear. Bilateral pupils equal, round, reactive. NECK: Supple. No JVD. CARDIOVASCULAR: S1 and S2, without murmur. LUNGS: Clear to auscultation. GASTROINTESTINAL: Soft and nontender without guarding. Positive bowel sounds. MUSCULOSKELETAL: No clubbing. No cyanosis noted. ASSESSMENT: 1. Schizoaffective disorder. 2. Hypertension. 3. Hyperthyroidism. 4. Heart failure. PLAN: We will admit the patient to Psychiatric Unit. We will follow up with a psychiatrist to monitor the patient's condition and behavior. We will do medication reconciliation accordingly. Treatment plans were discussed with the patient's nurse. Treatment plans were discussed with Dr. Minor. JOB# [id number]
[2019-08-31] MEDS: Ferrous Sulfate 325 MG TAB PO SCH ×2 (08:49→16:54)
[2019-08-31] MEDS: Multivitamin w/ Minerals Tab PO SCH (08:49)
[2019-08-31] MEDS: Hydrocodone/APAP 5mg/325mg Tab PO PRN ×2 (12:02→18:12)
[2019-09-01] MEDS: Hydrocodone/APAP 5mg/325mg Tab PO PRN ×2 (04:54→22:30)
[2019-09-01] MEDS: Levothyroxine 0.05 Mg Tab PO SCH (07:04)
[2019-09-01] MEDS: Ferrous Sulfate 325 MG TAB PO SCH ×2 (09:00→16:13)
[2019-09-01] MEDS: Multivitamin w/ Minerals Tab PO SCH (09:01)
--- NOTE | 2019-09-01 11:33 | Internal Medicine Prog Note ---
Internal Medicine Subjective - Subjective Patient is:: awake, verbal, interactive, in bed, talking, agitated Patient Complaints of:: other ("needs to be change" - notified Radha-RN) Per staff patient has:: agitated, other (yelling, threatening to call department of public health) Internal Medicine Objective - Physical Exam Vitals and I&O: Vital Signs Temp 97.4 F 09/01/19 06:00 Pulse 104 09/01/19 09:00 Resp 20 09/01/19 08:00 BP 129/74 09/01/19 09:00 Pulse Ox 96 09/01/19 06:00 Intake & Output 08/31/19 09/01/19 09/01/19 18:59 06:59 18:59 Intake Total 1000 240 Output Total 2 1 Balance 998 239 Intake: Oral 1000 240 Output: Stool 2 Urine/Stool Mix 1 Other: # Voids 5 1 Active Medications: Current Medications Acetaminophen (Tylenol) 650 mg PO Q4HR PRN PRN Reason: Mild Pain / Temp above 100 Stop: 10/30/19 01:57 Last Admin: 09/01/19 10:59 Dose: 650 mg Acetaminophen/Hydrocodone Bitart ([place] 5mg/325mg) 1 tab PO Q6H PRN PRN Reason: Pain (Severe 7-10) Stop: 10/30/19 01:57 Last Admin: 09/01/19 04:54 Dose: 1 tab Al Hydrox/Mg Hydrox/Simethicone (Maalox) 30 ml PO Q4HR PRN PRN Reason: GI DISTRESS Stop: 10/30/19 01:46 Ascorbic Acid (Vitamin C) 500 mg PO DAILY [facility] Stop: 10/30/19 08:59 Last Admin: 09/01/19 08:59 Dose: 500 mg Baclofen (Lioresal) 10 mg PO TID [facility] Stop: 10/30/19 08:59 Last Admin: 09/01/19 08:59 Dose: 10 mg Clonazepam (Klonopin) 1 mg PO BID [facility]; Protocol Stop: 10/31/19 08:59 Last Admin: 09/01/19 08:55 Dose: 1 mg Docusate Sodium (Colace) 100 mg PO DAILY [facility] Stop: 10/30/19 08:59 Last Admin: 09/01/19 08:59 Dose: 100 mg Escitalopram Oxalate (Lexapro) 10 mg PO DAILY [facility]; Protocol Stop: 10/30/19 08:59 Last Admin: 09/01/19 09:00 Dose: 10 mg Ferrous Sulfate (Iron) 325 mg PO BID [facility] Stop: 10/30/19 08:59 Last Admin: 09/01/19 09:00 Dose: 325 mg Furosemide (Lasix) 40 mg PO DAILY [facility] Stop: 10/30/19 08:59 Last Admin: 09/01/19 09:00 Dose: 40 mg Haloperidol Decanoate (Haldol Dec) 50 mg IM QMONTH [facility]; Protocol Stop: 10/30/19 08:59 Last Admin: 08/31/19 09:00 Dose: Not Given Levothyroxine Sodium (Synthroid) 0.05 mg PO QDAC [facility] Stop: 10/30/19 07:29 Last Admin: 09/01/19 07:04 Dose: 0.05 mg Lorazepam (Ativan) 0.5 mg PO Q4HR PRN; Protocol PRN Reason: Agitation Stop: 10/30/19 01:53 Last Admin: 08/31/19 18:04 Dose: 0.5 mg Losartan Potassium (Cozaar) 50 mg PO DAILY [facility] Stop: 10/30/19 08:59 Last Admin: 09/01/19 09:00 Dose: 50 mg Magnesium Hydroxide (Milk Of Magnesia) 30 ml PO HS PRN PRN Reason: Constipation Quetiapine Fumarate (Seroquel) 200 mg PO TID [facility]; Protocol Stop: 10/30/19 08:59 Last Admin: 09/01/19 09:01 Dose: 200 mg Trazodone HCl (Desyrel) 100 mg PO HS [facility]; Protocol Stop: 10/31/19 20:59 Zinc Sulfate (Zinc Sulfate) 220 mg PO DAILY [facility] Stop: 10/30/19 08:59 Last Admin: 09/01/19 09:01 Dose: 220 mg Zolpidem Tartrate (Ambien) 5 mg PO HS PRN PRN Reason: Insomnia Stop: 10/30/19 01:57 Last Admin: 08/31/19 20:55 Dose: 5 mg General: alert, NAD HEENT: NC/AT, PERRLA Neck: Supple Lungs: other (no acute respiratory distress) Cardiovascular: RRR Abdomen: soft, non-tender Extremities: clear Internal Medicine Assmt/Plan - Assessment Assessment: Schizoaffective disorder HTN Hyperthyroidism Heart Failure - Plan Plan: Continue current treatment plan. Monitor Labs. Continue current medications Continue to monitor VS Monitor Diet/Nutritional support. Psych management per Psychiatry. Pain Management. PT/OT prn Safety precaution, Fall precaution, frequent nursing round. Supportive care. Continue collaborating with consulting specialists, case management and nursing team
[2019-09-02] MEDS ORDERED: Haloperidol Lactate 5 mg/mL 1mL Vial IM ONE (05:05)
[2019-09-02] MEDS: Levothyroxine 0.05 Mg Tab PO SCH (06:47)
[2019-09-02] MEDS: Multivitamin w/ Minerals Tab PO SCH (09:03)
[2019-09-02] MEDS: Ferrous Sulfate 325 MG TAB PO SCH ×2 (09:04→16:41)
[2019-09-02] MEDS: Hydrocodone/APAP 5mg/325mg Tab PO PRN (10:31)
--- NOTE | 2019-09-02 12:57 | Internal Medicine Prog Note ---
Internal Medicine Subjective - Subjective Service Date: 09/02/19 Patient is:: awake, verbal, interactive, in bed, talking, agitated Patient Complaints of:: other ("needs to be change" - notified Radha-RN) Per staff patient has:: no adverse event, no episodes of fall, agitated, other ( yelling, threatening to call department of public health) Internal Medicine Objective - Physical Exam Vitals and I&O: Vital Signs Temp 97.7 F 09/02/19 06:12 Pulse 78 09/02/19 09:04 Resp 20 09/02/19 06:12 BP 127/75 09/02/19 09:05 Pulse Ox 100 09/02/19 06:12 Intake & Output 09/01/19 09/02/19 09/02/19 18:59 06:59 18:59 Intake Total 1200 240 Balance 1200 240 Intake: Oral 1200 240 Other: # Voids 2 Active Medications: Current Medications Acetaminophen (Tylenol) 650 mg PO Q4HR PRN PRN Reason: Mild Pain / Temp above 100 Stop: 10/30/19 01:57 Last Admin: 09/01/19 10:59 Dose: 650 mg Acetaminophen/Hydrocodone Bitart ([place] 5mg/325mg) 1 tab PO Q6H PRN PRN Reason: Pain (Severe 7-10) Stop: 10/30/19 01:57 Last Admin: 09/02/19 10:31 Dose: 1 tab Al Hydrox/Mg Hydrox/Simethicone (Maalox) 30 ml PO Q4HR PRN PRN Reason: GI DISTRESS Stop: 10/30/19 01:46 Ascorbic Acid (Vitamin C) 500 mg PO DAILY [facility] Stop: 10/30/19 08:59 Last Admin: 09/02/19 09:03 Dose: 500 mg Baclofen (Lioresal) 10 mg PO TID [facility] Stop: 10/30/19 08:59 Last Admin: 09/02/19 09:03 Dose: 10 mg Clonazepam (Klonopin) 1 mg PO BID [facility]; Protocol Stop: 10/31/19 08:59 Last Admin: 09/02/19 09:04 Dose: 1 mg Docusate Sodium (Colace) 100 mg PO DAILY [facility] Stop: 10/30/19 08:59 Last Admin: 09/02/19 09:03 Dose: 100 mg Escitalopram Oxalate (Lexapro) 10 mg PO DAILY [facility]; Protocol Stop: 10/30/19 08:59 Last Admin: 09/02/19 09:04 Dose: 10 mg Ferrous Sulfate (Iron) 325 mg PO BID [facility] Stop: 10/30/19 08:59 Last Admin: 09/02/19 09:04 Dose: 325 mg Furosemide (Lasix) 40 mg PO DAILY [facility] Stop: 10/30/19 08:59 Last Admin: 09/02/19 09:05 Dose: 40 mg Haloperidol Decanoate (Haldol Dec) 50 mg IM QMONTH [facility]; Protocol Stop: 10/30/19 08:59 Last Admin: 08/31/19 09:00 Dose: Not Given Levothyroxine Sodium (Synthroid) 0.05 mg PO QDAC [facility] Stop: 10/30/19 07:29 Last Admin: 09/02/19 06:47 Dose: 0.05 mg Lorazepam (Ativan) 0.5 mg PO Q4HR PRN; Protocol PRN Reason: Agitation Stop: 10/30/19 01:53 Last Admin: 09/02/19 03:57 Dose: 0.5 mg Losartan Potassium (Cozaar) 50 mg PO DAILY [facility] Stop: 10/30/19 08:59 Last Admin: 09/02/19 09:04 Dose: 50 mg Magnesium Hydroxide (Milk Of Magnesia) 30 ml PO HS PRN PRN Reason: Constipation Quetiapine Fumarate (Seroquel) 200 mg PO TID [facility]; Protocol Stop: 10/30/19 08:59 Last Admin: 09/02/19 09:04 Dose: 200 mg Trazodone HCl (Desyrel) 200 mg PO HS [facility]; Protocol Stop: 11/01/19 20:59 Zinc Sulfate (Zinc Sulfate) 220 mg PO DAILY [facility] Stop: 10/30/19 08:59 Last Admin: 09/02/19 09:04 Dose: 220 mg Zolpidem Tartrate (Ambien) 5 mg PO HS PRN PRN Reason: Insomnia Stop: 10/30/19 01:57 Last Admin: 08/31/19 20:55 Dose: 5 mg Physical Exam: Patient needs close monitoring remains very hostile, easily agitated and frustrated. General: alert, NAD HEENT: NC/AT, PERRLA Neck: Supple Lungs: other (no acute respiratory distress) Cardiovascular: RRR Abdomen: soft, non-tender Extremities: clear Neurological: no change Internal Medicine Assmt/Plan - Assessment Assessment: Schizoaffective disorder. Hypertension. Hyperthyroidism. Heart failure. Osteoarthritis. - Plan Plan: Psych management as per Psych. Continue present meds as directed. Monitor vitals and labs. Supportive care. Monitor diet and nutritional support. Continue current treatment plan as ordered. Nutritional Asmnt/Malnutr-PDOC - Dietary Evaluation Malnutrition Findings (Please click <Entered> for more info): See orders.
[2019-09-03] MEDS: Levothyroxine 0.05 Mg Tab PO SCH (07:00)
[2019-09-03] MEDS: Multivitamin w/ Minerals Tab PO SCH (08:41)
[2019-09-03] MEDS: Ferrous Sulfate 325 MG TAB PO SCH ×2 (08:42→17:45)
[2019-09-03] MEDS: Hydrocodone/APAP 5mg/325mg Tab PO PRN (12:16)
[2019-09-04] MEDS: Hydrocodone/APAP 5mg/325mg Tab PO PRN ×4 (03:13→23:34)
[2019-09-04] MEDS: Levothyroxine 0.05 Mg Tab PO SCH (06:54)
[2019-09-04] MEDS: Multivitamin w/ Minerals Tab PO SCH (08:26)
[2019-09-04] MEDS: Ferrous Sulfate 325 MG TAB PO SCH ×2 (08:27→17:37)
--- NOTE | 2019-09-04 08:50 | Internal Medicine Prog Note ---
Internal Medicine Subjective - Subjective Patient is:: awake, verbal, interactive, jarad chair, talking, agitated Patient Complaints of:: other (been yelling this morning) Per staff patient has:: no adverse event, no episodes of fall, agitated, other ( yelling, threatening to call department of public health) Internal Medicine Objective - Physical Exam Vitals and I&O: Vital Signs Temp 97.6 F 09/04/19 05:38 Pulse 98 09/04/19 08:29 Resp 18 09/04/19 05:38 BP 109/61 09/04/19 08:29 Pulse Ox 99 09/04/19 05:38 Intake & Output 09/03/19 09/04/19 09/04/19 18:59 06:59 18:59 Intake Total 750 240 Balance 750 240 Intake: Oral 750 240 Other: # Voids 4 # Bowel Movements 0 Stool Characteristics Formed Brown Active Medications: Current Medications Acetaminophen (Tylenol) 650 mg PO Q4HR PRN PRN Reason: Mild Pain / Temp above 100 Stop: 10/30/19 01:57 Last Admin: 09/04/19 06:54 Dose: 650 mg Acetaminophen/Hydrocodone Bitart ([place] 5mg/325mg) 1 tab PO Q6H PRN PRN Reason: Pain (Severe 7-10) Stop: 10/30/19 01:57 Last Admin: 09/04/19 03:13 Dose: 1 tab Al Hydrox/Mg Hydrox/Simethicone (Maalox) 30 ml PO Q4HR PRN PRN Reason: GI DISTRESS Stop: 10/30/19 01:46 Ascorbic Acid (Vitamin C) 500 mg PO DAILY [facility] Stop: 10/30/19 08:59 Last Admin: 09/04/19 08:27 Dose: 500 mg Baclofen (Lioresal) 10 mg PO TID [facility] Stop: 10/30/19 08:59 Last Admin: 09/04/19 08:28 Dose: 10 mg Clonazepam (Klonopin) 2 mg PO BID [facility]; Protocol Stop: 11/02/19 08:59 Last Admin: 09/04/19 08:27 Dose: 2 mg Divalproex Sodium (Depakote Dr) 500 mg PO BID [facility]; Protocol Stop: 11/02/19 08:59 Last Admin: 09/04/19 08:28 Dose: 500 mg Docusate Sodium (Colace) 100 mg PO DAILY [facility] Stop: 10/30/19 08:59 Last Admin: 09/04/19 08:27 Dose: 100 mg Escitalopram Oxalate (Lexapro) 10 mg PO DAILY [facility]; Protocol Stop: 10/30/19 08:59 Last Admin: 09/04/19 08:28 Dose: 10 mg Ferrous Sulfate (Iron) 325 mg PO BID [facility] Stop: 10/30/19 08:59 Last Admin: 09/04/19 08:27 Dose: 325 mg Furosemide (Lasix) 40 mg PO DAILY [facility] Stop: 10/30/19 08:59 Last Admin: 09/04/19 08:29 Dose: Not Given Haloperidol Decanoate (Haldol Dec) 50 mg IM QMONTH [facility]; Protocol Stop: 10/30/19 08:59 Last Admin: 08/31/19 09:00 Dose: Not Given Levothyroxine Sodium (Synthroid) 0.05 mg PO QDAC [facility] Stop: 10/30/19 07:29 Last Admin: 09/04/19 06:54 Dose: 0.05 mg Lorazepam (Ativan) 0.5 mg PO Q4HR PRN; Protocol PRN Reason: Agitation Stop: 10/30/19 01:53 Last Admin: 09/03/19 20:20 Dose: 0.5 mg Losartan Potassium (Cozaar) 50 mg PO DAILY [facility] Stop: 10/30/19 08:59 Last Admin: 09/04/19 08:29 Dose: Not Given Magnesium Hydroxide (Milk Of Magnesia) 30 ml PO HS PRN PRN Reason: Constipation Quetiapine Fumarate (Seroquel) 200 mg PO TID [facility]; Protocol Stop: 10/30/19 08:59 Last Admin: 09/04/19 08:27 Dose: 200 mg Trazodone HCl (Desyrel) 200 mg PO HS [facility]; Protocol Stop: 11/01/19 20:59 Last Admin: 09/03/19 20:20 Dose: 200 mg Zinc Sulfate (Zinc Sulfate) 220 mg PO DAILY [facility] Stop: 10/30/19 08:59 Last Admin: 09/04/19 08:26 Dose: 220 mg Zolpidem Tartrate (Ambien) 5 mg PO HS PRN PRN Reason: Insomnia Stop: 10/30/19 01:57 Last Admin: 09/03/19 00:09 Dose: 5 mg General: alert, NAD HEENT: NC/AT, PERRLA Neck: Supple Lungs: other (no acute respiratory distress) Cardiovascular: RRR Abdomen: soft, non-tender Extremities: clear Neurological: no change Internal Medicine Assmt/Plan - Assessment Assessment: Schizoaffective disorder HTN Hyperthyroidism Heart Failure OA - Plan Plan: Continue current treatment plan. Monitor Labs. Continue current medications Continue to monitor VS Monitor Diet/Nutritional support. Psych management per Psychiatry. Pain Management. PT/OT prn Safety precaution, Fall precaution, frequent nursing round. Supportive care. Continue collaborating with consulting specialists, case management and nursing team
--- NOTE | 2019-09-04 13:58 | Internal Medicine Prog Note ---
Internal Medicine Subjective - Subjective Service Date: 09/04/19 Patient seen and examined:: with staff Patient is:: awake, verbal, interactive, jarad chair, talking, agitated Patient Complaints of:: other (been yelling this morning) Per staff patient has:: no adverse event, no episodes of fall, agitated, other ( yelling, threatening to call department of public health) Internal Medicine Objective - Physical Exam Vitals and I&O: Vital Signs Temp 97.6 F 09/04/19 05:38 Pulse 98 09/04/19 08:29 Resp 20 09/04/19 08:00 BP 109/61 09/04/19 08:29 Pulse Ox 99 09/04/19 05:38 Intake & Output 09/03/19 09/04/19 09/04/19 18:59 06:59 18:59 Intake Total 750 240 Balance 750 240 Intake: Oral 750 240 Other: # Voids 4 # Bowel Movements 0 Stool Characteristics Formed Brown Active Medications: Current Medications Acetaminophen (Tylenol) 650 mg PO Q4HR PRN PRN Reason: Mild Pain / Temp above 100 Stop: 10/30/19 01:57 Last Admin: 09/04/19 06:54 Dose: 650 mg Acetaminophen/Hydrocodone Bitart ([place] 5mg/325mg) 1 tab PO Q6H PRN PRN Reason: Pain (Severe 7-10) Stop: 10/30/19 01:57 Last Admin: 09/04/19 12:55 Dose: 1 tab Al Hydrox/Mg Hydrox/Simethicone (Maalox) 30 ml PO Q4HR PRN PRN Reason: GI DISTRESS Stop: 10/30/19 01:46 Ascorbic Acid (Vitamin C) 500 mg PO DAILY [facility] Stop: 10/30/19 08:59 Last Admin: 09/04/19 08:27 Dose: 500 mg Baclofen (Lioresal) 10 mg PO TID [facility] Stop: 10/30/19 08:59 Last Admin: 09/04/19 13:00 Dose: 10 mg Clonazepam (Klonopin) 2 mg PO BID [facility]; Protocol Stop: 11/02/19 08:59 Last Admin: 09/04/19 08:27 Dose: 2 mg Divalproex Sodium (Depakote Dr) 500 mg PO BID [facility]; Protocol Stop: 11/02/19 08:59 Last Admin: 09/04/19 08:28 Dose: 500 mg Docusate Sodium (Colace) 100 mg PO DAILY [facility] Stop: 10/30/19 08:59 Last Admin: 09/04/19 08:27 Dose: 100 mg Escitalopram Oxalate (Lexapro) 10 mg PO DAILY [facility]; Protocol Stop: 10/30/19 08:59 Last Admin: 09/04/19 08:28 Dose: 10 mg Ferrous Sulfate (Iron) 325 mg PO BID [facility] Stop: 10/30/19 08:59 Last Admin: 09/04/19 08:27 Dose: 325 mg Furosemide (Lasix) 40 mg PO DAILY [facility] Stop: 10/30/19 08:59 Last Admin: 09/04/19 08:29 Dose: Not Given Haloperidol Decanoate (Haldol Dec) 50 mg IM QMONTH [facility]; Protocol Stop: 10/30/19 08:59 Last Admin: 08/31/19 09:00 Dose: Not Given Levothyroxine Sodium (Synthroid) 0.05 mg PO QDAC [facility] Stop: 10/30/19 07:29 Last Admin: 09/04/19 06:54 Dose: 0.05 mg Lorazepam (Ativan) 0.5 mg PO Q4HR PRN; Protocol PRN Reason: Agitation Stop: 10/30/19 01:53 Last Admin: 09/03/19 20:20 Dose: 0.5 mg Losartan Potassium (Cozaar) 50 mg PO DAILY [facility] Stop: 10/30/19 08:59 Last Admin: 09/04/19 08:29 Dose: Not Given Magnesium Hydroxide (Milk Of Magnesia) 30 ml PO HS PRN PRN Reason: Constipation Quetiapine Fumarate (Seroquel) 200 mg PO TID [facility]; Protocol Stop: 10/30/19 08:59 Last Admin: 09/04/19 13:00 Dose: 200 mg Trazodone HCl (Desyrel) 200 mg PO HS [facility]; Protocol Stop: 11/01/19 20:59 Last Admin: 09/03/19 20:20 Dose: 200 mg Zinc Sulfate (Zinc Sulfate) 220 mg PO DAILY [facility] Stop: 10/30/19 08:59 Last Admin: 09/04/19 08:26 Dose: 220 mg Zolpidem Tartrate (Ambien) 5 mg PO HS PRN PRN Reason: Insomnia Stop: 10/30/19 01:57 Last Admin: 09/03/19 00:09 Dose: 5 mg Physical Exam: Patient needs close monitoring, aggressive and very irritable. General: alert, NAD HEENT: NC/AT, PERRLA Neck: Supple Lungs: other (no acute respiratory distress) Cardiovascular: RRR Abdomen: soft, non-tender Extremities: clear Neurological: no change Internal Medicine Assmt/Plan - Assessment Assessment: Schizoaffective disorder. Hypertension. Hyperthyroidism. Heart failure. Osteoarthritis. - Plan Plan: Psych management as per Psych. Continue present meds as directed. Monitor vitals and labs. Supportive care. Monitor diet and nutritional support. Continue current treatment plan as ordered. Nutritional Asmnt/Malnutr-PDOC - Dietary Evaluation Malnutrition Findings (Please click <Entered> for more info): see orders.
--- NOTE | 2019-09-04 14:03 | Internal Medicine Prog Note ---
Internal Medicine Subjective - Subjective Service Date: 09/04/19 Patient is:: awake, verbal, interactive, jarad chair, talking, agitated Patient Complaints of:: other (been yelling this morning) Per staff patient has:: no adverse event, no episodes of fall, agitated, other ( yelling, threatening to call [facility]) Internal Medicine Objective - Physical Exam Vitals and I&O: Vital Signs Temp 97.6 F 09/04/19 05:38 Pulse 98 09/04/19 08:29 Resp 20 09/04/19 08:00 BP 109/61 09/04/19 08:29 Pulse Ox 99 09/04/19 05:38 Intake & Output 09/03/19 09/04/19 09/04/19 18:59 06:59 18:59 Intake Total 750 240 Balance 750 240 Intake: Oral 750 240 Other: # Voids 4 # Bowel Movements 0 Stool Characteristics Formed Brown Active Medications: Current Medications Acetaminophen (Tylenol) 650 mg PO Q4HR PRN PRN Reason: Mild Pain / Temp above 100 Stop: 10/30/19 01:57 Last Admin: 09/04/19 06:54 Dose: 650 mg Acetaminophen/Hydrocodone Bitart ([place] 5mg/325mg) 1 tab PO Q6H PRN PRN Reason: Pain (Severe 7-10) Stop: 10/30/19 01:57 Last Admin: 09/04/19 12:55 Dose: 1 tab Al Hydrox/Mg Hydrox/Simethicone (Maalox) 30 ml PO Q4HR PRN PRN Reason: GI DISTRESS Stop: 10/30/19 01:46 Ascorbic Acid (Vitamin C) 500 mg PO DAILY [facility] Stop: 10/30/19 08:59 Last Admin: 09/04/19 08:27 Dose: 500 mg Baclofen (Lioresal) 10 mg PO TID [facility] Stop: 10/30/19 08:59 Last Admin: 09/04/19 13:00 Dose: 10 mg Clonazepam (Klonopin) 2 mg PO BID [facility]; Protocol Stop: 11/02/19 08:59 Last Admin: 09/04/19 08:27 Dose: 2 mg Divalproex Sodium (Depakote Dr) 500 mg PO BID [facility]; Protocol Stop: 11/02/19 08:59 Last Admin: 09/04/19 08:28 Dose: 500 mg Docusate Sodium (Colace) 100 mg PO DAILY [facility] Stop: 10/30/19 08:59 Last Admin: 09/04/19 08:27 Dose: 100 mg Escitalopram Oxalate (Lexapro) 10 mg PO DAILY [facility]; Protocol Stop: 10/30/19 08:59 Last Admin: 09/04/19 08:28 Dose: 10 mg Ferrous Sulfate (Iron) 325 mg PO BID [facility] Stop: 10/30/19 08:59 Last Admin: 09/04/19 08:27 Dose: 325 mg Furosemide (Lasix) 40 mg PO DAILY [facility] Stop: 10/30/19 08:59 Last Admin: 09/04/19 08:29 Dose: Not Given Haloperidol Decanoate (Haldol Dec) 50 mg IM QMONTH [facility]; Protocol Stop: 10/30/19 08:59 Last Admin: 08/31/19 09:00 Dose: Not Given Levothyroxine Sodium (Synthroid) 0.05 mg PO QDAC [facility] Stop: 10/30/19 07:29 Last Admin: 09/04/19 06:54 Dose: 0.05 mg Lorazepam (Ativan) 0.5 mg PO Q4HR PRN; Protocol PRN Reason: Agitation Stop: 10/30/19 01:53 Last Admin: 09/03/19 20:20 Dose: 0.5 mg Losartan Potassium (Cozaar) 50 mg PO DAILY [facility] Stop: 10/30/19 08:59 Last Admin: 09/04/19 08:29 Dose: Not Given Magnesium Hydroxide (Milk Of Magnesia) 30 ml PO HS PRN PRN Reason: Constipation Quetiapine Fumarate (Seroquel) 200 mg PO TID [facility]; Protocol Stop: 10/30/19 08:59 Last Admin: 09/04/19 13:00 Dose: 200 mg Trazodone HCl (Desyrel) 200 mg PO HS [facility]; Protocol Stop: 11/01/19 20:59 Last Admin: 09/03/19 20:20 Dose: 200 mg Zinc Sulfate (Zinc Sulfate) 220 mg PO DAILY [facility] Stop: 10/30/19 08:59 Last Admin: 09/04/19 08:26 Dose: 220 mg Zolpidem Tartrate (Ambien) 5 mg PO HS PRN PRN Reason: Insomnia Stop: 02/19/20 01:57 Last Admin: 09/03/19 00:09 Dose: 5 mg General: alert, NAD HEENT: NC/AT, PERRLA Neck: Supple Lungs: other (no acute respiratory distress) Cardiovascular: RRR Abdomen: soft, non-tender Extremities: clear Neurological: no change
[2019-09-05] MEDS: Levothyroxine 0.05 Mg Tab PO SCH (06:50)
[2019-09-05] MEDS ORDERED: Haloperidol Lactate 5 mg/mL 1mL Vial ONE (07:55)
[2019-09-05] MEDS ORDERED: Haloperidol Lactate 5 mg/mL 1mL Vial IM ONE (08:00)
[2019-09-05] MEDS: Ferrous Sulfate 325 MG TAB PO SCH ×2 (08:24→16:48)
[2019-09-05] MEDS: Multivitamin w/ Minerals Tab PO SCH (08:26)
--- NOTE | 2019-09-05 17:55 | Internal Medicine Prog Note ---
Internal Medicine Subjective - Subjective Service Date: 09/05/19 Patient is:: awake, verbal, interactive, jarad chair, talking, agitated Patient Complaints of:: other (been yelling this morning) Per staff patient has:: no adverse event, no episodes of fall, agitated, other ( yelling, threatening to call department of public [facility]) Internal Medicine Objective - Physical Exam Vitals and I&O: Vital Signs Temp 97.8 F 09/05/19 14:00 Pulse 89 09/05/19 14:00 Resp 20 09/05/19 14:00 BP 117/89 09/05/19 14:00 Pulse Ox 95 09/05/19 14:00 Intake & Output 09/04/19 09/05/19 09/05/19 18:59 06:59 18:59 Intake Total 300 120 Output Total 2 Balance 298 120 Intake: Oral 300 120 Output: Urine 2 Other: # Voids 3 Active Medications: Current Medications Acetaminophen (Tylenol) 650 mg PO Q4HR PRN PRN Reason: Mild Pain / Temp above 100 Stop: 10/30/19 01:57 Last Admin: 09/04/19 06:54 Dose: 650 mg Acetaminophen/Hydrocodone Bitart ([place] 5mg/325mg) 1 tab PO Q6H PRN PRN Reason: Pain (Severe 7-10) Stop: 10/30/19 01:57 Last Admin: 09/04/19 23:34 Dose: 1 tab Al Hydrox/Mg Hydrox/Simethicone (Maalox) 30 ml PO Q4HR PRN PRN Reason: GI DISTRESS Stop: 10/30/19 01:46 Ascorbic Acid (Vitamin C) 500 mg PO DAILY [facility] Stop: 10/30/19 08:59 Last Admin: 09/05/19 08:24 Dose: Not Given Baclofen (Lioresal) 10 mg PO TID [facility] Stop: 10/30/19 08:59 Last Admin: 09/05/19 14:11 Dose: 10 mg Clonazepam (Klonopin) 2 mg PO BID [facility]; Protocol Stop: 11/02/19 08:59 Last Admin: 09/05/19 16:48 Dose: 2 mg Divalproex Sodium (Depakote Dr) 500 mg PO BID [facility]; Protocol Stop: 11/02/19 08:59 Last Admin: 09/05/19 16:48 Dose: 500 mg Docusate Sodium (Colace) 100 mg PO DAILY [facility] Stop: 10/30/19 08:59 Last Admin: 09/05/19 08:24 Dose: Not Given Escitalopram Oxalate (Lexapro) 10 mg PO DAILY [facility]; Protocol Stop: 10/30/19 08:59 Last Admin: 09/05/19 08:24 Dose: Not Given Ferrous Sulfate (Iron) 325 mg PO BID [facility] Stop: 10/30/19 08:59 Last Admin: 09/05/19 16:48 Dose: 325 mg Furosemide (Lasix) 40 mg PO DAILY [facility] Stop: 10/30/19 08:59 Last Admin: 09/05/19 08:24 Dose: Not Given Haloperidol (Haldol) 5 mg PO TID [facility]; Protocol Stop: 11/04/19 08:59 Last Admin: 09/05/19 14:11 Dose: 5 mg Haloperidol Decanoate (Haldol Dec) 50 mg IM QMONTH [facility]; Protocol Stop: 10/30/19 08:59 Last Admin: 08/31/19 09:00 Dose: Not Given Levothyroxine Sodium (Synthroid) 0.05 mg PO QDAC [facility] Stop: 10/30/19 07:29 Last Admin: 09/05/19 06:50 Dose: 0.05 mg Lorazepam (Ativan) 0.5 mg PO Q4HR PRN; Protocol PRN Reason: Agitation Stop: 10/30/19 01:53 Last Admin: 09/04/19 21:09 Dose: 0.5 mg Losartan Potassium (Cozaar) 50 mg PO DAILY [facility] Stop: 10/30/19 08:59 Last Admin: 09/05/19 08:25 Dose: Not Given Magnesium Hydroxide (Milk Of Magnesia) 30 ml PO HS PRN PRN Reason: Constipation Quetiapine Fumarate (Seroquel) 200 mg PO TID [facility]; Protocol Stop: 10/30/19 08:59 Last Admin: 09/05/19 14:11 Dose: 200 mg Trazodone HCl (Desyrel) 200 mg PO HS [facility]; Protocol Stop: 11/01/19 20:59 Last Admin: 09/04/19 21:08 Dose: 200 mg Zinc Sulfate (Zinc Sulfate) 220 mg PO DAILY [facility] Stop: 10/30/19 08:59 Last Admin: 09/05/19 08:26 Dose: Not Given Zolpidem Tartrate (Ambien) 5 mg PO HS PRN PRN Reason: Insomnia Stop: 10/30/19 01:57 Last Admin: 09/04/19 22:10 Dose: 5 mg General: alert, NAD HEENT: NC/AT, PERRLA Neck: Supple Lungs: other (no acute respiratory distress) Cardiovascular: RRR Abdomen: soft, non-tender Extremities: clear Neurological: no change
[2019-09-06] MEDS: Levothyroxine 0.05 Mg Tab PO SCH (06:53)
[2019-09-06] MEDS: Multivitamin w/ Minerals Tab PO SCH (08:26)
[2019-09-06] MEDS: Ferrous Sulfate 325 MG TAB PO SCH ×2 (08:26→16:07)
[2019-09-07] MEDS: Hydrocodone/APAP 5mg/325mg Tab PO PRN (02:09)
[2019-09-07] MEDS: Levothyroxine 0.05 Mg Tab PO SCH (06:58)
[2019-09-07] MEDS: Ferrous Sulfate 325 MG TAB PO SCH ×2 (09:06→18:00)
[2019-09-07] MEDS: Multivitamin w/ Minerals Tab PO SCH (09:07)
[2019-09-08] MEDS: Levothyroxine 0.05 Mg Tab PO SCH (06:45)
[2019-09-08] MEDS: Ferrous Sulfate 325 MG TAB PO SCH ×2 (09:11→17:51)
[2019-09-08] MEDS: Multivitamin w/ Minerals Tab PO SCH (09:12)
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
--- NOTE | 2019-09-08 20:34 | Progress Notes ---
DATE: SUBJECTIVE: Chart was reviewed and the patient interviewed. Also discussed the patient's condition with the staff and reviewed records and labs. The patient is still extremely agitated and extremely irritable. The patient also still has difficulty dealing with others and still cursing and yelling with foul language to staff. The patient also is still severely paranoid, thinks that she is going to be harmed. She also still has severe mood swings with grandiose delusions. The patient has been taking her medications, but she is still extremely agitated and extremely irritable and difficulty following directions. ASSESSMENT: The patient is still agitated and can be dangerous to others and is still aggressive and psychotic. TREATMENT PLAN: Continue to monitor behavior and condition closely. Also, we will change Haldol to 5 mg in the morning and 10 mg at bedtime and we will increase Klonopin to 2 mg 3 times a day. The patient is on relatively high dose of medications, but with severely agitated patient like this, it is not uncommon to use higher dose and also not uncommon to use more than one antipsychotic medication to help with her aggressive behavior and her agitation. JOB# [id number]
--- NOTE | 2019-09-08 20:34 | Progress Notes ---
DATE: 09/04/2019 SUBJECTIVE: Case was discussed with staff of the patient, reviewed records. A 68-year-old female who was admitted on 08/30/2019 because of agitation, irritability. The patient was seen at [facility]. She has been extremely irritable, agitated, demanding, and paranoid. The patient was in the observation room. She was acting out. She is hard to redirect, paranoid, unable to make safe plan for self-care and hard to redirect. No side effects with the medication, no sedation, no nausea, no extrapyramidal symptoms and has been on clonazepam 2 mg twice a day, Depakote 500 mg twice daily, Lexapro 10 mg daily, and haloperidol 50 mg, Decanoate IM monthly and we will continue to work with the patient in group therapy, milieu therapy, and adjust medications as needed. JOB# [id number] TRAVIS
--- NOTE | 2019-09-08 20:34 | Progress Notes ---
DATE: 09/03/2019 SUBJECTIVE: Chart was reviewed and the patient interviewed. Also discussed the patient's condition with the staff and reviewed records and labs. The patient is still extremely irritable and extremely agitated. The patient also still has difficulty following any directions and she is still threatening staff and threatening myself and everybody in the hospital. The patient also is demanding and is in angry mood. Also, yesterday, the patient refused to take her evening medications and she woke up in the middle of the night and only took Ambien and that helped her to sleep. She wakes up early in the morning and yelling and screaming and demanding to smoke and again threatening everybody in the hospital. She is still in irritable mood and she is still easily agitated. The patient although started on Seroquel 200 mg 3 times a day, it is not as effective as it was thought it is going to be. She still has severe mood swings and severe anxiety and manic behavior and grandiose delusions. TREATMENT PLAN: We will continue to monitor her behavior and her condition closely. Also, we will increase Klonopin to 2 mg twice a day. Also, we will add Depakote 500 mg twice a day and we will continue to monitor her behavior and her condition closely. Also, continue to work on her poor impulse control. I might consider restarting the patient on Haldol on a routine basis, although she is taking Seroquel simply because it seems that Haldol is more effective than Seroquel so far. [facility]# [id number]
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
--- NOTE | 2019-09-08 20:34 | Progress Notes ---
DATE: SUBJECTIVE: Chart reviewed and the patient interviewed. Also, discussed the patient's condition with the staff and reviewed records and labs. The patient is still increasingly agitated, and she is in irritable and angry mood. The patient also is threatening everybody and yelling and screaming constantly and interruptive in the milieu. She also is still in irritable and angry mood and easily agitated. She also is still feeling hopeless and helpless. ASSESSMENT: The patient is still extremely angry and in irritable mood and actively hallucinating and actively psychotic. TREATMENT PLAN: We will continue monitoring her behavior and her condition closely. Also, we will add Haldol in a dose of 5 mg 3 times a day. Although, the patient is taking Seroquel, yet it has not been helping the patient's irritability and agitation. With such extreme psychotic patients, it is not uncommon to add second antipsychotic medications. She is taking Haldol injection, but we will add tablet to it. Also, we will continue close observation and continue to follow up. JOB# [id number]
--- NOTE | 2019-09-08 20:35 | Progress Notes ---
DATE: 09/08/[address] Oakley. SUBJECTIVE: Continues to refuse labs. Today on [id number] evaluation, upon approach continues to verbally threaten. When attempting to validate her emotions, she continues to become more agitated. MENTAL STATUS EXAMINATION: Disorganized, refusing interview. ASSESSMENT AND PLAN: This is a patient who continues to present in a manic, mixed state, but continue verbally aggressive upon approach. We will continue with primary psychiatrist's treatment plan and goals, which includes the clonazepam, Depakote, Lexapro, Haldol and Seroquel. We are waiting for Depakote levels. JOB# [id number]
--- NOTE | 2019-09-08 20:35 | Progress Notes ---
DATE: 09/07/2019 SUBJECTIVE: The patient was seen in her room. The patient keeps on shouting. Appears to be agitated, very confused. Otherwise, the patient appears to be in no acute distress. OBJECTIVE: VITAL SIGNS: Temperature 98, heart rate 89, blood pressure 121/75, respirations 18, 97% on room air. HEENT: Head is atraumatic and normocephalic. Eyes: Bilateral conjunctivae are clear. Bilateral pupils are equally round and reactive. NECK: Supple. No JVD. CARDIOVASCULAR: S1, S2, without murmur. PULMONARY: Clear to auscultation. GASTROINTESTINAL: Soft and nontender without guarding. Positive bowel sounds. MUSCULOSKELETAL: No clubbing. No cyanosis noted. ASSESSMENT: 1. Schizoaffective disorder. 2. Hypothyroidism. 3. Hypertension. 4. Heart failure. PLAN: We will continue to keep the patient to Inpatient Psychiatric Unit. We will follow up with a psychiatrist to monitor the patient's condition and behavior. We will put the patient on fall precaution. Treatment plans were discussed with the patient's nurse. Treatment plans were discussed with Dr. Minor. JOB# [id number]
--- NOTE | 2019-09-08 20:35 | Progress Notes ---
DATE: 09/07/2019 SUBJECTIVE: The patient was seen and evaluated. The patient's chart reviewed. Covering for Dr. Oakley. IDENTIFYING DATA: A 68-year-old female with a history of schizophrenia, who presents very extremely irritable and agitated and demanding and paranoid. HOSPITAL COURSE: Currently on clonazepam 2 mg p.o. b.i.d., Depakote 500 mg p.o. b.i.d., Lexapro 10 mg a day, haloperidol at 5 mg daily and 10 at nighttime with Haldol Decanoate. Today on [id number] evaluation, the patient is aggressive, irritable, verbally threatening and needing a lot of redirection to maintain simple conversation. MENTAL STATUS EXAMINATION: Verbally threatening, disorganized. ASSESSMENT AND PLAN: This is a patient who presents as aggressive, verbally agitated, treatment resistant, who is currently on Seroquel, Haldol, Depakote, Lexapro and clonazepam. We will continue with primary psychiatrist's treatment plan and goals and monitor for any complications or side effects. [facility]# [id number]
[2019-09-08] MEDS: Hydrocodone/APAP 5mg/325mg Tab PO PRN (22:36)
[2019-09-09] MEDS: Hydrocodone/APAP 5mg/325mg Tab PO PRN (04:57)
[2019-09-09] MEDS: Levothyroxine 0.05 Mg Tab PO SCH (06:39)
[2019-09-09] MEDS: Multivitamin w/ Minerals Tab PO SCH (09:37)
[2019-09-09] MEDS: Ferrous Sulfate 325 MG TAB PO SCH ×2 (09:38→16:31)
--- NOTE | 2019-09-09 20:56 | Progress Notes ---
DATE: 09/09/2019 SUBJECTIVE: The patient is currently in the hospital, still disorganized, -[place] female, mumbling something about a wheelchair and difficult to fully assess at this time, yelling, screaming, not really making much sense, having a hard time understanding what she is saying, impulsive, manipulative, labile, yelling, shouting, ongoing outbursts. PLAN: We will continue to monitor. Medications were reviewed. She remains hostile, not safe for a lower level of care. JOB# [id number]
[2019-09-10] MEDS: Levothyroxine 0.05 Mg Tab PO SCH (06:33)
[2019-09-10] MEDS: Ferrous Sulfate 325 MG TAB PO SCH ×2 (08:10→16:34)
[2019-09-10] MEDS: Multivitamin w/ Minerals Tab PO SCH (08:11)
--- NOTE | 2019-09-10 09:18 | Progress Notes ---
DATE: 09/10/2019 SUBJECTIVE: A 68-year-old female, currently in the hospital, coming from [facility]. The patient was very irritable, agitated, uncooperative. History of schizoaffective, history of Haldol in the past. On [id number], the patient is calm, sleeping, but arousable. Per staff, still somewhat aggressive upon approach, yelling at times, slept for about 6 hours, demanding, still verbally aggressive, using lot of foul language. ASSESSMENT: The patient is still yelling, screaming, ongoing concerns about safety, especially those around her. She gets Haldol Decanoate and also on Seroquel dosing. PLAN: We will continue to monitor ongoing behavioral disturbances. JOB# [id number]
--- NOTE | 2019-09-10 09:57 | Internal Medicine Prog Note ---
Internal Medicine Subjective - Subjective Patient is:: asleep, verbal, arousable, in bed, agitated Patient Complaints of:: other (been yelling this morning) Per staff patient has:: no adverse event, no episodes of fall, agitated, other ( yelling when awaken) Internal Medicine Objective - Physical Exam Vitals and I&O: Vital Signs Temp 99.3 F 09/10/19 06:08 Pulse 89 09/10/19 06:08 Resp 20 09/10/19 06:08 BP 105/68 09/10/19 06:08 Pulse Ox 97 09/10/19 06:08 Intake & Output 09/09/19 09/10/19 09/10/19 18:59 06:59 18:59 Intake Total 900 240 Output Total 1 Balance 900 239 Intake: Oral 900 240 Output: Urine/Stool Mix 1 Other: # Voids 4 1 # Bowel Movements 0 Active Medications: Current Medications Acetaminophen (Tylenol) 650 mg PO Q4HR PRN PRN Reason: Mild Pain / Temp above 100 Stop: 10/30/19 01:57 Last Admin: 09/06/19 00:57 Dose: 650 mg Acetaminophen/Hydrocodone Bitart ([place] 5mg/325mg) 1 tab PO Q6H PRN PRN Reason: Pain (Severe 7-10) Stop: 10/30/19 01:57 Last Admin: 09/09/19 04:57 Dose: 1 tab Al Hydrox/Mg Hydrox/Simethicone (Maalox) 30 ml PO Q4HR PRN PRN Reason: GI DISTRESS Stop: 10/30/19 01:46 Ascorbic Acid (Vitamin C) 500 mg PO DAILY [facility] Stop: 10/30/19 08:59 Last Admin: 09/10/19 08:09 Dose: 500 mg Baclofen (Lioresal) 10 mg PO TID [facility] Stop: 10/30/19 08:59 Last Admin: 09/10/19 08:09 Dose: 10 mg Clonazepam (Klonopin) 2 mg PO TID [facility]; Protocol Stop: 11/05/19 09:59 Last Admin: 09/10/19 08:09 Dose: 2 mg Divalproex Sodium (Depakote Dr) 500 mg PO BID [facility]; Protocol Stop: 11/02/19 08:59 Last Admin: 09/10/19 08:10 Dose: 500 mg Docusate Sodium (Colace) 100 mg PO DAILY [facility] Stop: 10/30/19 08:59 Last Admin: 09/10/19 08:10 Dose: 100 mg Escitalopram Oxalate (Lexapro) 10 mg PO DAILY [facility]; Protocol Stop: 10/30/19 08:59 Last Admin: 09/10/19 08:10 Dose: 10 mg Ferrous Sulfate (Iron) 325 mg PO BID [facility] Stop: 10/30/19 08:59 Last Admin: 09/10/19 08:10 Dose: 325 mg Furosemide (Lasix) 40 mg PO DAILY [facility] Stop: 10/30/19 08:59 Last Admin: 09/10/19 08:10 Dose: Not Given Haloperidol (Haldol) 5 mg PO DAILY [facility]; Protocol Stop: 11/05/19 09:59 Last Admin: 09/10/19 08:11 Dose: 5 mg Haloperidol (Haldol) 10 mg PO HS [facility]; Protocol Stop: 11/05/19 20:59 Last Admin: 09/09/19 20:42 Dose: 10 mg Haloperidol Decanoate (Haldol Dec) 50 mg IM QMONTH [facility]; Protocol Stop: 10/30/19 08:59 Last Admin: 08/31/19 09:00 Dose: Not Given Levothyroxine Sodium (Synthroid) 0.05 mg PO QDAC [facility] Stop: 10/30/19 07:29 Last Admin: 09/10/19 06:33 Dose: 0.05 mg Lorazepam (Ativan) 0.5 mg PO Q4HR PRN; Protocol PRN Reason: Agitation Stop: 10/30/19 01:53 Last Admin: 09/10/19 00:28 Dose: 0.5 mg Losartan Potassium (Cozaar) 50 mg PO DAILY [facility] Stop: 10/30/19 08:59 Last Admin: 09/10/19 08:11 Dose: Not Given Magnesium Hydroxide (Milk Of Magnesia) 30 ml PO HS PRN PRN Reason: Constipation Quetiapine Fumarate (Seroquel) 200 mg PO TID [facility]; Protocol Stop: 10/30/19 08:59 Last Admin: 09/10/19 08:11 Dose: 200 mg Trazodone HCl (Desyrel) 200 mg PO HS [facility]; Protocol Stop: 11/01/19 20:59 Last Admin: 09/09/19 20:42 Dose: 200 mg Zinc Sulfate (Zinc Sulfate) 220 mg PO DAILY [facility] Stop: 10/30/19 08:59 Last Admin: 09/10/19 08:11 Dose: 220 mg Zolpidem Tartrate (Ambien) 5 mg PO HS PRN PRN Reason: Insomnia Stop: 10/30/19 01:57 Last Admin: 09/07/19 21:28 Dose: 5 mg General: alert, NAD HEENT: NC/AT, PERRLA Neck: Supple, No JVD Lungs: other (no acute respiratory distress) Cardiovascular: RRR Abdomen: soft, non-tender Extremities: clear Neurological: no change Internal Medicine Assmt/Plan - Assessment Assessment: Schizoaffective disorder HTN Hyperthyroidism Heart Failure OA - Plan Plan: Continue current treatment plan. Continue current medications Continue to monitor VS Monitor Diet/Nutritional support. Psych management per Psychiatry. Safety precaution, Fall precaution, frequent nursing round. Supportive care. Continue collaborating with consulting specialists, case management and nursing team Nutritional Asmnt/Malnutr-PDOC - Dietary Evaluation Malnutrition Findings (Please click <Entered> for more info): Nutritional Asmnt/Malnutrition Start: 09/06/19 14: 05 Text: Status: Complete Freq: Protocol: Document 09/06/19 14:49 JOVAN (Rec: 09/06/19 14:52 JOVAN [email or web address]) Nutritional Asmnt/Malnutrition Patient General Information Nutritional Screening Low Risk Diagnosis Psychosis Pertinent Medical Hx/Surgical Hx Nicotine dependence, HTN, Hyperlipidemia, Osteoarthritis , Hypothyroidism, Heart Failure Subjective Information Pt is a 68-year-old female admitted on 08/30 d/t verbal abuse and aggressive behavior towards nursing facility staff . Pt is eating an estimated 70 % of meals x3 days (average) Per Meal/Nutrition Activity Record. Dietary is currently providing an estimated 2160 kcals and 100 gm Pro, per Pt PO intake this is providing an estimated 1500 kcals and 70gm Pro to meet 88% kcal and 100+ % Pro needs- adequate. Pt was asleep at time of morning visit, came back in the afternoon. Pt was waking up and ready to eat lunch. I had a CASINO SLOT SUPERVISOR help sit pt up and grabbed her a prune juice per request. Pt noted to have diarrhea on 09/05 per EMR, after talking ti nurse Sherrill and Cecilia each state pt did not have diarrhea. CASINO SLOT SUPERVISOR Cesar stated pt had a firm BM today . Pt ate 100% breakfast this morning and was beginning to eat lunch as I left. Consider adding Renal to Diet Rx d/t renal related labs () BUN/Cr 40/1.5, GFR 37. Anthropometrics HT: 57 WT: 182 LB (82.73 kg) ABW: 147 LB (66.70 kg) BMI: 28.09 (Overweight) GI/ Skin Integrity GI: WNL, Soft, Flat, Non- tender BM: 09/06 x1 I/O: 1080/Not Noted Skin: WNL Intact Oniel: 18 Diet Order: BUFFY, 2GM NA, Chopped Estimated Energy Needs: ( Geriatric, ABW) 6909-8378 kcals (25-30 kcals/ kg) 70-80g Pro (1.0-1.2 g/kg) 7215-4905 ml (25-30 ml/kg) Current Diet Order/ Nutrition Support BUFFY, 2GM NA, Chopped Pertinent Medications Maalox (PRN), Vitamin C, Colace, Ferrous Sulfate, Lasix , Synthroid, Cozaar, MOM (PRN) , Zinc Sulfate Pertinent Labs 08/19: Na 134, BUN/Cr 40/1.5, GFR 37 09/01: Hgb/Hct 8.8/27.4 Nutritional Hx/Data Height 5 ft 7 in Height (Calculated Centimeters) 170.2 Current Weight (lbs) 182 lb Weight (Calculated Kilograms) 82.6 Weight (Calculated Grams) 78578.8 [place] Body Weight 135 Lb (61.36 kg) % [place] Body Weight 135 Body Mass Index (BMI) 28.5 Weight Status Overweight GI Symptoms GI Symptoms None Last BM 09/06 x1 Skin Integrity/Comment: Skin: WNL Intact Oniel: 18 Current %PO Fair (50-74%) Estimated Nutritional Goals BEE in Kcals: Adj wt of IBW Calories/Kcals/Kg 25-30 Kcals Calculated 9389-2095 Protein: Adj wt of IBW Protein g/k.0-1.2 Protein Calculated 70-80 Fluid: ml 3579-3444 ml (25-30 ml/kg) Nutritional Problem 1. Problem Problem Altered nutrition related labs Etiology r/t pathophysiological causes Signs/Symptoms: aeb labs (09/01): Na 134, BUN/ Cr 40/1.5, GFR 37. Malnutrition Related to Morbid Obesity Malnutrition related to morbid obesity No Intervention/Recommendation Comments 1. Continue BUFFY, 2GM NA, Chopped diet as tolerated. 2. Consider adding Renal to Diet Rx d/t renal related labs (09/01) BUN/Cr 40/1.5, GFR 37 . Expected Outcomes/Goals Expected Outcomes/Goals 1.PO intake to continue to meet 75% of estimated nutritional needs. 2.Monitor PO intake, wt, nutrition related labs, and skin integrity. 3.F/U as low risk in 7-10 days , 09/13-09/15
[2019-09-11] MEDS: Levothyroxine 0.05 Mg Tab PO SCH (06:48)
--- NOTE | 2019-09-11 07:10 | Progress Notes ---
DATE: 09/11/2019 SUBJECTIVE: The patient is currently in the hospital, intermittently yelling, verbally aggressive, wanting at times, hard to understand. I tried to talk to her, but she continues to moan, noted to be somewhat forgetful, restless, ongoing episodes of yelling, screaming ongoing outbursts. Medications were reviewed. Ongoing symptoms, safety concerns. PLAN: We will continue to monitor. She remains unruly. JOB# [id number]
[2019-09-11] MEDS: Ferrous Sulfate 325 MG TAB PO SCH ×2 (10:27→16:26)
[2019-09-11] MEDS: Multivitamin w/ Minerals Tab PO SCH (10:28)
[2019-09-11] MEDS: Hydrocodone/APAP 5mg/325mg Tab PO PRN (11:02)
--- NOTE | 2019-09-11 12:18 | Internal Medicine Prog Note ---
Internal Medicine Subjective - Subjective Patient is:: asleep, verbal, arousable, in bed, agitated Patient Complaints of:: other (been yelling this morning) Per staff patient has:: no adverse event, no episodes of fall, agitated, other ( yelling when awaken) Internal Medicine Objective - Physical Exam Vitals and I&O: Vital Signs Temp 0 F 09/11/19 05:07 Pulse 75 09/11/19 10:25 Resp 14 09/11/19 08:00 BP 139/82 09/11/19 10:27 Pulse Ox 98 09/10/19 19:56 Intake & Output 09/10/19 09/11/19 09/11/19 18:59 06:59 18:59 Intake Total 720 120 Balance 720 120 Intake: Oral 720 120 Other: # Voids 4 3 # Bowel Movements 0 0 Active Medications: Current Medications Acetaminophen (Tylenol) 650 mg PO Q4HR PRN PRN Reason: Mild Pain / Temp above 100 Stop: 10/30/19 01:57 Last Admin: 09/06/19 00:57 Dose: 650 mg Acetaminophen/Hydrocodone Bitart ([place] 5mg/325mg) 1 tab PO Q6H PRN PRN Reason: Pain (Severe 7-10) Stop: 10/30/19 01:57 Last Admin: 09/11/19 11:02 Dose: 1 tab Al Hydrox/Mg Hydrox/Simethicone (Maalox) 30 ml PO Q4HR PRN PRN Reason: GI DISTRESS Stop: 10/30/19 01:46 Ascorbic Acid (Vitamin C) 500 mg PO DAILY [facility] Stop: 10/30/19 08:59 Last Admin: 09/11/19 10:26 Dose: 500 mg Baclofen (Lioresal) 10 mg PO TID [facility] Stop: 10/30/19 08:59 Last Admin: 09/11/19 10:36 Dose: 10 mg Clonazepam (Klonopin) 2 mg PO TID [facility]; Protocol Stop: 11/05/19 09:59 Last Admin: 09/11/19 10:36 Dose: 2 mg Divalproex Sodium (Depakote Dr) 500 mg PO BID [facility]; Protocol Stop: 11/02/19 08:59 Last Admin: 09/11/19 10:37 Dose: 500 mg Docusate Sodium (Colace) 100 mg PO DAILY [facility] Stop: 10/30/19 08:59 Last Admin: 09/11/19 10:26 Dose: 100 mg Escitalopram Oxalate (Lexapro) 10 mg PO DAILY [facility]; Protocol Stop: 10/30/19 08:59 Last Admin: 09/11/19 10:26 Dose: 10 mg Ferrous Sulfate (Iron) 325 mg PO BID [facility] Stop: 10/30/19 08:59 Last Admin: 09/11/19 10:27 Dose: 325 mg Furosemide (Lasix) 40 mg PO DAILY [facility] Stop: 10/30/19 08:59 Last Admin: 09/11/19 10:27 Dose: 40 mg Haloperidol (Haldol) 5 mg PO DAILY [facility]; Protocol Stop: 11/05/19 09:59 Last Admin: 09/11/19 10:28 Dose: 5 mg Haloperidol (Haldol) 10 mg PO HS [facility]; Protocol Stop: 11/05/19 20:59 Last Admin: 09/10/19 20:58 Dose: 10 mg Haloperidol Decanoate (Haldol Dec) 50 mg IM QMONTH [facility]; Protocol Stop: 10/30/19 08:59 Last Admin: 08/31/19 09:00 Dose: Not Given Levothyroxine Sodium (Synthroid) 0.05 mg PO QDAC [facility] Stop: 10/30/19 07:29 Last Admin: 09/11/19 06:48 Dose: 0.05 mg Lorazepam (Ativan) 0.5 mg PO Q4HR PRN; Protocol PRN Reason: Agitation Stop: 10/30/19 01:53 Last Admin: 09/10/19 00:28 Dose: 0.5 mg Losartan Potassium (Cozaar) 50 mg PO DAILY [facility] Stop: 10/30/19 08:59 Last Admin: 09/11/19 10:25 Dose: 50 mg Magnesium Hydroxide (Milk Of Magnesia) 30 ml PO HS PRN PRN Reason: Constipation Quetiapine Fumarate (Seroquel) 200 mg PO TID [facility]; Protocol Stop: 10/30/19 08:59 Last Admin: 09/11/19 10:27 Dose: 200 mg Trazodone HCl (Desyrel) 200 mg PO HS [facility]; Protocol Stop: 11/01/19 20:59 Last Admin: 09/10/19 20:56 Dose: 200 mg Zinc Sulfate (Zinc Sulfate) 220 mg PO DAILY [facility] Stop: 10/30/19 08:59 Last Admin: 09/11/19 10:26 Dose: 220 mg Zolpidem Tartrate (Ambien) 5 mg PO HS PRN PRN Reason: Insomnia Stop: 10/30/19 01:57 Last Admin: 09/07/19 21:28 Dose: 5 mg General: alert, NAD, other (yelling in the room) HEENT: NC/AT, PERRLA Neck: Supple, No JVD Lungs: other (no acute respiratory distress) Cardiovascular: RRR Abdomen: soft, non-tender Extremities: clear Neurological: no change Internal Medicine Assmt/Plan - Assessment Assessment: Schizoaffective disorder HTN Hyperthyroidism Heart Failure OA - Plan Plan: Continue current treatment plan. Continue current medications Continue to monitor VS Monitor Diet/Nutritional support. Psych management per Psychiatry. Safety precaution, Fall precaution, frequent nursing round. Supportive care. Continue collaborating with consulting specialists, case management and nursing team Nutritional Asmnt/Malnutr-PDOC - Dietary Evaluation Malnutrition Findings (Please click <Entered> for more info): Nutritional Asmnt/Malnutrition Start: 09/06/19 14: 05 Text: Status: Complete Freq: Protocol: Document 09/06/19 14:49 JOVAN (Rec: 09/06/19 14:52 JOVAN [email or web address]) Nutritional Asmnt/Malnutrition Patient General Information Nutritional Screening Low Risk Diagnosis Psychosis Pertinent Medical Hx/Surgical Hx Nicotine dependence, HTN, Hyperlipidemia, Osteoarthritis , Hypothyroidism, Heart Failure Subjective Information Pt is a 68-year-old female admitted on 08/30 d/t verbal abuse and aggressive behavior towards nursing facility staff . Pt is eating an estimated 70 % of meals x3 days (average) Per Meal/Nutrition Activity Record. Dietary is currently providing an estimated 2160 kcals and 100 gm Pro, per Pt PO intake this is providing an estimated 1500 kcals and 70gm Pro to meet 88% kcal and 100+ % Pro needs- adequate. Pt was asleep at time of morning visit, came back in the afternoon. Pt was waking up and ready to eat lunch. I had a HEATING AND VENTILATING WORKER help sit pt up and grabbed her a prune juice per request. Pt noted to have diarrhea on 09/05 per EMR, after talking ti nurse Sherrill and Cecilia each state pt did not have diarrhea. HEATING AND VENTILATING WORKER Cesar stated pt had a firm BM today . Pt ate 100% breakfast this morning and was beginning to eat lunch as I left. Consider adding Renal to Diet Rx d/t renal related labs () BUN/Cr 40/1.5, GFR 37. Anthropometrics HT: 57 WT: 182 LB (82.73 kg) ABW: 147 LB (66.70 kg) BMI: 28.09 (Overweight) GI/ Skin Integrity GI: WNL, Soft, Flat, Non- tender BM: 09/06 x1 I/O: 1080/Not Noted Skin: WNL Intact Oniel: 18 Diet Order: BUFFY, 2GM NA, Chopped Estimated Energy Needs: ( Geriatric, ABW) 8755-1558 kcals (25-30 kcals/ kg) 70-80g Pro (1.0-1.2 g/kg) 9590-6330 ml (25-30 ml/kg) Current Diet Order/ Nutrition Support BUFFY, 2GM NA, Chopped Pertinent Medications Maalox (PRN), Vitamin C, Colace, Ferrous Sulfate, Lasix , Synthroid, Cozaar, MOM (PRN) , Zinc Sulfate Pertinent Labs 08/19: Na 134, BUN/Cr 40/1.5, GFR 37 09/01: Hgb/Hct 8.8/27.4 Nutritional Hx/Data Height 5 ft 7 in Height (Calculated Centimeters) 170.2 Current Weight (lbs) 182 lb Weight (Calculated Kilograms) 82.6 Weight (Calculated Grams) 85722.8 [place] Body Weight 135 Lb (61.36 kg) % [place] Body Weight 135 Body Mass Index (BMI) 28.5 Weight Status Overweight GI Symptoms GI Symptoms None Last BM 09/06 x1 Skin Integrity/Comment: Skin: WNL Intact Oniel: 18 Current %PO Fair (50-74%) Estimated Nutritional Goals BEE in Kcals: Adj wt of IBW Calories/Kcals/Kg 25-30 Kcals Calculated 2130-1755 Protein: Adj wt of IBW Protein g/k.0-1.2 Protein Calculated 70-80 Fluid: ml 8891-6721 ml (25-30 ml/kg) Nutritional Problem 1. Problem Problem Altered nutrition related labs Etiology r/t pathophysiological causes Signs/Symptoms: aeb labs (09/01): Na 134, BUN/ Cr 40/1.5, GFR 37. Malnutrition Related to Morbid Obesity Malnutrition related to morbid obesity No Intervention/Recommendation Comments 1. Continue BUFFY, 2GM NA, Chopped diet as tolerated. 2. Consider adding Renal to Diet Rx d/t renal related labs (09/01) BUN/Cr 40/1.5, GFR 37 . Expected Outcomes/Goals Expected Outcomes/Goals 1.PO intake to continue to meet 75% of estimated nutritional needs. 2.Monitor PO intake, wt, nutrition related labs, and skin integrity. 3.F/U as low risk in 7-10 days , 09/13-09/15
[2019-09-12] MEDS: Hydrocodone/APAP 5mg/325mg Tab PO PRN (05:41)
[2019-09-12] MEDS: Levothyroxine 0.05 Mg Tab PO SCH (06:57)
[2019-09-12] MEDS: Ferrous Sulfate 325 MG TAB PO SCH ×2 (09:52→17:13)
[2019-09-12] MEDS: Multivitamin w/ Minerals Tab PO SCH (09:52)
--- NOTE | 2019-09-12 17:05 | Internal Medicine Prog Note ---
Internal Medicine Subjective - Subjective Service Date: 09/12/19 Patient is:: asleep, verbal, arousable, in bed, agitated Patient Complaints of:: other (been yelling this morning) Per staff patient has:: no adverse event, no episodes of fall, agitated, other ( yelling when awaken) Internal Medicine Objective - Physical Exam Vitals and I&O: Vital Signs Temp 99.2 F 09/12/19 14:00 Pulse 92 09/12/19 14:00 Resp 20 09/12/19 14:00 BP 100/57 09/12/19 14:00 Pulse Ox 100 09/12/19 14:00 Intake & Output 09/11/19 09/12/19 09/12/19 18:59 06:59 18:59 Intake Total 800 60 Balance 800 60 Intake: Oral 800 60 Other: # Voids 2 1 # Bowel Movements 0 0 Active Medications: Current Medications Acetaminophen (Tylenol) 650 mg PO Q4HR PRN PRN Reason: Mild Pain (Scale 1-3) Stop: 10/30/19 01:57 Last Admin: 09/06/19 00:57 Dose: 650 mg Acetaminophen (Tylenol) 650 mg PO Q4HR PRN PRN Reason: TEMP ABOVE 100 Stop: 11/11/19 09:43 Acetaminophen/Hydrocodone Bitart ([place] 5mg/325mg) 1 tab PO Q6H PRN PRN Reason: Pain (Severe 7-10) Stop: 10/30/19 01:57 Last Admin: 09/12/19 05:41 Dose: 1 tab Al Hydrox/Mg Hydrox/Simethicone (Maalox) 30 ml PO Q4HR PRN PRN Reason: GI DISTRESS Stop: 10/30/19 01:46 Ascorbic Acid (Vitamin C) 500 mg PO DAILY [facility] Stop: 10/30/19 08:59 Last Admin: 09/12/19 09:52 Dose: 500 mg Baclofen (Lioresal) 10 mg PO TID [facility] Stop: 10/30/19 08:59 Last Admin: 09/12/19 14:48 Dose: 10 mg Clonazepam (Klonopin) 1 mg PO TID [facility]; Protocol Stop: 11/11/19 20:59 Clonazepam (Klonopin) 0.5 mg PO TID [facility] Stop: 11/11/19 20:59 Divalproex Sodium (Depakote Dr) 500 mg PO BID [facility]; Protocol Stop: 11/02/19 08:59 Last Admin: 09/12/19 10:00 Dose: 500 mg Docusate Sodium (Colace) 100 mg PO DAILY [facility] Stop: 10/30/19 08:59 Last Admin: 09/12/19 09:52 Dose: 100 mg Escitalopram Oxalate (Lexapro) 10 mg PO DAILY [facility]; Protocol Stop: 10/30/19 08:59 Last Admin: 09/12/19 10:00 Dose: 10 mg Ferrous Sulfate (Iron) 325 mg PO BID [facility] Stop: 10/30/19 08:59 Last Admin: 09/12/19 09:52 Dose: 325 mg Furosemide (Lasix) 40 mg PO DAILY [facility] Stop: 10/30/19 08:59 Last Admin: 09/12/19 09:48 Dose: Not Given Haloperidol (Haldol) 5 mg PO 1700 [facility]; Protocol Stop: 11/11/19 16:59 Haloperidol Decanoate (Haldol Dec) 50 mg IM QMONTH [facility]; Protocol Stop: 10/30/19 08:59 Last Admin: 08/31/19 09:00 Dose: Not Given Levothyroxine Sodium (Synthroid) 0.05 mg PO QDAC [facility] Stop: 10/30/19 07:29 Last Admin: 09/12/19 06:57 Dose: 0.05 mg Lorazepam (Ativan) 0.5 mg PO Q4HR PRN; Protocol PRN Reason: Agitation Stop: 10/30/19 01:53 Last Admin: 09/10/19 00:28 Dose: 0.5 mg Losartan Potassium (Cozaar) 50 mg PO DAILY [facility] Stop: 10/30/19 08:59 Last Admin: 09/12/19 09:47 Dose: Not Given Magnesium Hydroxide (Milk Of Magnesia) 30 ml PO HS PRN PRN Reason: Constipation Quetiapine Fumarate (Seroquel) 100 mg PO TID [facility]; Protocol Stop: 11/11/19 20:59 Trazodone HCl (Desyrel) 200 mg PO HS [facility]; Protocol Stop: 11/01/19 20:59 Last Admin: 09/11/19 22:50 Dose: Not Given Zinc Sulfate (Zinc Sulfate) 220 mg PO DAILY [facility] Stop: 10/30/19 08:59 Last Admin: 09/12/19 09:52 Dose: 220 mg Zolpidem Tartrate (Ambien) 5 mg PO HS PRN PRN Reason: Insomnia Stop: 10/30/19 01:57 Last Admin: 09/07/19 21:28 Dose: 5 mg General: alert, NAD, other (yelling in the room) HEENT: NC/AT, PERRLA Neck: Supple, No JVD Lungs: other (no acute respiratory distress) Cardiovascular: RRR Abdomen: soft, non-tender Extremities: clear Neurological: no change Internal Medicine Assmt/Plan - Assessment Assessment: Schizoaffective disorder HTN Hyperthyroidism Heart Failure OA - Plan Plan: Continue current treatment plan. Continue current medications Continue to monitor VS Monitor Diet/Nutritional support. Psych management per Psychiatry. Safety precaution, Fall precaution, frequent nursing round. Supportive care. Continue collaborating with consulting specialists, case management and nursing team Nutritional Asmnt/Malnutr-PDOC - Dietary Evaluation Malnutrition Findings (Please click <Entered> for more info): Nutritional Asmnt/Malnutrition Start: 09/06/19 14: 05 Text: Status: Complete Freq: Protocol: Document 09/06/19 14:49 JOVAN (Rec: 09/06/19 14:52 JOVAN [email or web address]) Nutritional Asmnt/Malnutrition Patient General Information Nutritional Screening Low Risk Diagnosis Psychosis Pertinent Medical Hx/Surgical Hx Nicotine dependence, HTN, Hyperlipidemia, Osteoarthritis , Hypothyroidism, Heart Failure Subjective Information Pt is a 68-year-old female admitted on 08/30 d/t verbal abuse and aggressive behavior towards nursing facility staff . Pt is eating an estimated 70 % of meals x3 days (average) Per Meal/Nutrition Activity Record. Dietary is currently providing an estimated 2160 kcals and 100 gm Pro, per Pt PO intake this is providing an estimated 1500 kcals and 70gm Pro to meet 88% kcal and 100+ % Pro needs- adequate. Pt was asleep at time of morning visit, came back in the afternoon. Pt was waking up and ready to eat lunch. I had a INPATIENT AUDITOR help sit pt up and grabbed her a prune juice per request. Pt noted to have diarrhea on 09/05 per EMR, after talking ti nurse Sherrill and Cecilia each state pt did not have diarrhea. INPATIENT AUDITORMichelle Guerrero stated pt had a firm BM today . Pt ate 100% breakfast this morning and was beginning to eat lunch as I left. Consider adding Renal to Diet Rx d/t renal related labs () BUN/Cr 40/1.5, GFR 37. Anthropometrics HT: 57 WT: 182 LB (82.73 kg) ABW: 147 LB (66.70 kg) BMI: 28.09 (Overweight) GI/ Skin Integrity GI: WNL, Soft, Flat, Non- tender BM: 09/06 x1 I/O: 1080/Not Noted Skin: WNL Intact Oniel: 18 Diet Order: BUFFY, 2GM NA, Chopped Estimated Energy Needs: ( Geriatric, ABW) 9763-0111 kcals (25-30 kcals/ kg) 70-80g Pro (1.0-1.2 g/kg) 8234-6337 ml (25-30 ml/kg) Current Diet Order/ Nutrition Support BUFFY, 2GM NA, Chopped Pertinent Medications Maalox (PRN), Vitamin C, Colace, Ferrous Sulfate, Lasix , Synthroid, Cozaar, MOM (PRN) , Zinc Sulfate Pertinent Labs 08/19: Na 134, BUN/Cr 40/1.5, GFR 37 09/01: Hgb/Hct 8.8/27.4 Nutritional Hx/Data Height 5 ft 7 in Height (Calculated Centimeters) 170.2 Current Weight (lbs) 182 lb Weight (Calculated Kilograms) 82.6 Weight (Calculated Grams) 85137.8 [place] Body Weight 135 Lb (61.36 kg) % [place] Body Weight 135 Body Mass Index (BMI) 28.5 Weight Status Overweight GI Symptoms GI Symptoms None Last BM 09/06 x1 Skin Integrity/Comment: Skin: WNL Intact Oniel: 18 Current %PO Fair (50-74%) Estimated Nutritional Goals BEE in Kcals: Adj wt of IBW Calories/Kcals/Kg 25-30 Kcals Calculated 2617-6650 Protein: Adj wt of IBW Protein g/k.0-1.2 Protein Calculated 70-80 Fluid: ml 0567-4427 ml (25-30 ml/kg) Nutritional Problem 1. Problem Problem Altered nutrition related labs Etiology r/t pathophysiological causes Signs/Symptoms: aeb labs (09/01): Na 134, BUN/ Cr 40/1.5, GFR 37. Malnutrition Related to Morbid Obesity Malnutrition related to morbid obesity No Intervention/Recommendation Comments 1. Continue BUFFY, 2GM NA, Chopped diet as tolerated. 2. Consider adding Renal to Diet Rx d/t renal related labs (09/01) BUN/Cr 40/1.5, GFR 37 . Expected Outcomes/Goals Expected Outcomes/Goals 1.PO intake to continue to meet 75% of estimated nutritional needs. 2.Monitor PO intake, wt, nutrition related labs, and skin integrity. 3.F/U as low risk in 7-10 days , 09/13-09/15
--- NOTE | 2019-09-12 21:09 | Progress Notes ---
DATE: 09/12/2019 SUBJECTIVE: The patient in the hospital, yelling, verbally aggressive, hard to understand, stating that people in the unit are "evil" and she is really angry, still in a Anjana chair, unruly, ongoing concerns, safety concerns. The patient coming from [facility], , verbally aggressive and refusing care. ASSESSMENT: The patient remains impulsive, unpredictable, unable to really be cared for at a lower level. We will continue inpatient monitoring. JOB# [id number]
[2019-09-13] MEDS: Levothyroxine 0.05 Mg Tab PO SCH (06:39)
[2019-09-13] MEDS: Ferrous Sulfate 325 MG TAB PO SCH ×2 (09:22→17:29)
[2019-09-13] MEDS: Multivitamin w/ Minerals Tab PO SCH (09:23)
--- NOTE | 2019-09-13 15:33 | Progress Notes ---
DATE: 09/13/2019 SUBJECTIVE: The patient in the hospital, slept for about 5 hours, on and off yelling, still yelling now, paranoid, delusional, demanding, repetitive, ruminative, ongoing confusion noted, behavioral disturbances. ASSESSMENT AND PLAN: The patient remains symptomatic, not safe for lower level of care. Recent dose adjustments of medications due to concerns for oversedation. We will continue to monitor. [facility]# [id number]
--- NOTE | 2019-09-13 20:39 | Internal Medicine Prog Note ---
Internal Medicine Subjective - Subjective Service Date: 09/13/19 Patient seen and examined:: with staff Patient is:: asleep, verbal, arousable, in bed, agitated Patient Complaints of:: other (been yelling this morning) Per staff patient has:: no adverse event, no episodes of fall, agitated, other ( yelling when awaken) Internal Medicine Objective - Physical Exam Vitals and I&O: Vital Signs Temp 97.8 F 09/13/19 19:53 Pulse 88 09/13/19 19:53 Resp 19 09/13/19 19:53 BP 123/74 09/13/19 19:53 Pulse Ox 98 09/13/19 19:53 Intake & Output 09/13/19 09/13/19 09/14/19 06:59 18:59 06:59 Intake Total 120 240 Balance 120 240 Intake: Oral 120 240 Other: # Voids 2 2 # Bowel Movements 0 Stool Characteristics Soft Active Medications: Current Medications Acetaminophen (Tylenol) 650 mg PO Q4HR PRN PRN Reason: Mild Pain (Scale 1-3) Stop: 10/30/19 01:57 Last Admin: 09/06/19 00:57 Dose: 650 mg Acetaminophen (Tylenol) 650 mg PO Q4HR PRN PRN Reason: TEMP ABOVE 100 Stop: 11/11/19 09:43 Acetaminophen/Hydrocodone Bitart ([place] 5mg/325mg) 1 tab PO Q6H PRN PRN Reason: Pain (Severe 7-10) Stop: 10/30/19 01:57 Last Admin: 09/12/19 05:41 Dose: 1 tab Al Hydrox/Mg Hydrox/Simethicone (Maalox) 30 ml PO Q4HR PRN PRN Reason: GI DISTRESS Stop: 10/30/19 01:46 Ascorbic Acid (Vitamin C) 500 mg PO DAILY JU[facility]ID Stop: 10/30/19 08:59 Last Admin: 09/13/19 09:21 Dose: Not Given Baclofen (Lioresal) 10 mg PO TID JU[facility] DAV[facility] Stop: 10/30/19 08:59 Last Admin: 09/13/19 20:16 Dose: 10 mg Clonazepam (Klonopin) 1 mg PO TID J[facility] DAV[facility]; Protocol Stop: 11/11/19 20:59 Last Admin: 09/13/19 20:17 Dose: 1 mg Clonazepam (Klonopin) 0.5 mg PO TID [facility] Stop: 11/11/19 20:59 Last Admin: 09/13/19 20:17 Dose: 0.5 mg Divalproex Sodium (Depakote Dr) 500 mg PO BID [facility]; Protocol Stop: 11/02/19 08:59 Last Admin: 09/13/19 17:29 Dose: Not Given Docusate Sodium (Colace) 100 mg PO DAILY [facility] Stop: 10/30/19 08:59 Last Admin: 09/13/19 09:22 Dose: Not Given Escitalopram Oxalate (Lexapro) 10 mg PO DAILY [facility]; Protocol Stop: 10/30/19 08:59 Last Admin: 09/13/19 09:22 Dose: Not Given Ferrous Sulfate (Iron) 325 mg PO BID [facility] Stop: 10/30/19 08:59 Last Admin: 09/13/19 17:29 Dose: Not Given Furosemide (Lasix) 40 mg PO DAILY [facility] Stop: 10/30/19 08:59 Last Admin: 09/13/19 09:22 Dose: Not Given Haloperidol (Haldol) 5 mg PO 1700 [facility]; Protocol Stop: 11/11/19 16:59 Last Admin: 09/13/19 17:29 Dose: Not Given Haloperidol Decanoate (Haldol Dec) 50 mg IM QMONTH [facility]; Protocol Stop: 10/30/19 08:59 Last Admin: 08/31/19 09:00 Dose: Not Given Levothyroxine Sodium (Synthroid) 0.05 mg PO QDAC [facility] Stop: 10/30/19 07:29 Last Admin: 09/13/19 06:39 Dose: 0.05 mg Lorazepam (Ativan) 0.5 mg PO Q4HR PRN; Protocol PRN Reason: Agitation Stop: 10/30/19 01:53 Last Admin: 09/10/19 00:28 Dose: 0.5 mg Losartan Potassium (Cozaar) 50 mg PO DAILY [facility] Stop: 10/30/19 08:59 Last Admin: 09/13/19 09:23 Dose: Not Given Magnesium Hydroxide (Milk Of Magnesia) 30 ml PO HS PRN PRN Reason: Constipation Quetiapine Fumarate (Seroquel) 100 mg PO TID [facility]; Protocol Stop: 11/11/19 20:59 Last Admin: 09/13/19 20:17 Dose: 100 mg Trazodone HCl (Desyrel) 200 mg PO HS [facility] DAV[facility]; Protocol Stop: 11/01/19 20:59 Last Admin: 09/13/19 20:18 Dose: 200 mg Zinc Sulfate (Zinc Sulfate) 220 mg PO DAILY [facility] Stop: 10/30/19 08:59 Last Admin: 09/13/19 09:23 Dose: Not Given Zolpidem Tartrate (Ambien) 5 mg PO HS PRN PRN Reason: Insomnia Stop: 10/30/19 01:57 Last Admin: 09/07/19 21:28 Dose: 5 mg Physical Exam: Patient needs close monitoring, continues to be very psychotic, yelling and acting up. General: alert, NAD, other (yelling in the room) HEENT: NC/AT, PERRLA Neck: Supple, No JVD Lungs: other (no acute respiratory distress) Cardiovascular: RRR Abdomen: soft, non-tender Extremities: clear Neurological: no change Internal Medicine Assmt/Plan - Assessment Assessment: Schizoaffective disorder. Hypertension. Hyperthyroidism. Heart failure. Osteoarthritis. - Plan Plan: Psych management as per Psych. Continue present meds as directed. Monitor vitals and labs. Supportive care. Monitor diet and nutritional support. Continue current treatment plan as ordered. Nutritional Asmnt/Malnutr-PDOC - Dietary Evaluation Malnutrition Findings (Please click <Entered> for more info): Nutritional Asmnt/Malnutrition Start: 09/06/19 14: 05 Text: Status: Complete Freq: Protocol: Document 09/06/19 14:49 JOVAN (Rec: 09/06/19 14:52 JOVAN [email or web address]) Nutritional Asmnt/Malnutrition Patient General Information Nutritional Screening Low Risk Diagnosis Psychosis Pertinent Medical Hx/Surgical Hx Nicotine dependence, HTN, Hyperlipidemia, Osteoarthritis , Hypothyroidism, Heart Failure Subjective Information Pt is a 68-year-old female admitted on 08/30 d/t verbal abuse and aggressive behavior towards nursing facility staff . Pt is eating an estimated 70 % of meals x3 days (average) Per Meal/Nutrition Activity Record. Dietary is currently providing an estimated 2160 kcals and 100 gm Pro, per Pt PO intake this is providing an estimated 1500 kcals and 70gm Pro to meet 88% kcal and 100+ % Pro needs- adequate. Pt was asleep at time of morning visit, came back in the afternoon. Pt was waking up and ready to eat lunch. I had a MED ASST help sit pt up and grabbed her a prune juice per request. Pt noted to have diarrhea on 09/05 per EMR, after talking ti nurse Sherrill and Cecilia each state pt did not have diarrhea. MED ASST Cesar stated pt had a firm BM today . Pt ate 100% breakfast this morning and was beginning to eat lunch as I left. Consider adding Renal to Diet Rx d/t renal related labs () BUN/Cr 40/1.5, GFR 37. Anthropometrics HT: 57 WT: 182 LB (82.73 kg) ABW: 147 LB (66.70 kg) BMI: 28.09 (Overweight) GI/ Skin Integrity GI: WNL, Soft, Flat, Non- tender BM: 09/06 x1 I/O: 1080/Not Noted Skin: WNL Intact Oniel: 18 Diet Order: BUFFY, 2GM NA, Chopped Estimated Energy Needs: ( Geriatric, ABW) 8083-5329 kcals (25-30 kcals/ kg) 70-80g Pro (1.0-1.2 g/kg) 0947-1689 ml (25-30 ml/kg) Current Diet Order/ Nutrition Support BUFFY, 2GM NA, Chopped Pertinent Medications Maalox (PRN), Vitamin C, Colace, Ferrous Sulfate, Lasix , Synthroid, Cozaar, MOM (PRN) , Zinc Sulfate Pertinent Labs 08/19: Na 134, BUN/Cr 40/1.5, GFR 37 09/01: Hgb/Hct 8.8/27.4 Nutritional Hx/Data Height 1.7 m Height (Calculated Centimeters) 170.2 Current Weight (lbs) 82.554 kg Weight (Calculated Kilograms) 82.6 Weight (Calculated Grams) 46430.8 [place] Body Weight 135 Lb (61.36 kg) % [place] Body Weight 135 Body Mass Index (BMI) 28.5 Weight Status Overweight GI Symptoms GI Symptoms None Last BM 09/06 x1 Skin Integrity/Comment: Skin: WNL Intact Oniel: 18 Current %PO Fair (50-74%) Estimated Nutritional Goals BEE in Kcals: Adj wt of IBW Calories/Kcals/Kg 25-30 Kcals Calculated 5311-6753 Protein: Adj wt of IBW Protein g/k.0-1.2 Protein Calculated 70-80 Fluid: ml 2341-0411 ml (25-30 ml/kg) Nutritional Problem 1. Problem Problem Altered nutrition related labs Etiology r/t pathophysiological causes Signs/Symptoms: aeb labs (09/01): Na 134, BUN/ Cr 40/1.5, GFR 37. Malnutrition Related to Morbid Obesity Malnutrition related to morbid obesity No Intervention/Recommendation Comments 1. Continue BUFFY, 2GM NA, Chopped diet as tolerated. 2. Consider adding Renal to Diet Rx d/t renal related labs (09/01) BUN/Cr 40/1.5, GFR 37 . Expected Outcomes/Goals Expected Outcomes/Goals 1.PO intake to continue to meet 75% of estimated nutritional needs. 2.Monitor PO intake, wt, nutrition related labs, and skin integrity. 3.F/U as low risk in 7-10 days , 09/13-09/15
[2019-09-14] MEDS: Hydrocodone/APAP 5mg/325mg Tab PO PRN (04:16)
[2019-09-14] MEDS: Levothyroxine 0.05 Mg Tab PO SCH (06:49)
[2019-09-14] MEDS: Multivitamin w/ Minerals Tab PO SCH (08:22)
[2019-09-14] MEDS: Ferrous Sulfate 325 MG TAB PO SCH ×2 (08:24→16:37)
--- NOTE | 2019-09-14 11:03 | Progress Notes ---
DATE: 09/14/2019 SUBJECTIVE: The patient was seen at the dining area. The patient appears to be confused, suspicious and paranoid with episodes of delusion and very demanding. The patient also has episodes of behavioral outbursts. Otherwise, the patient appears to be in no acute distress. OBJECTIVE: VITAL SIGNS: Temperature 97.2, heart rate of 88, blood pressure 115/52, respiration 19, 95% on room air. HEENT: Head is atraumatic and normocephalic. Eyes: Bilateral conjunctivae are clear. Bilateral pupils equal, round, reactive. NECK: Supple. No JVD. CARDIOVASCULAR: S1 and S2, without murmur. PULMONARY: Clear to auscultation. GASTROINTESTINAL: Soft and nontender without guarding. Positive bowel sounds. MUSCULOSKELETAL: No clubbing. No cyanosis noted. ASSESSMENT: 1. Schizoaffective disorder. 2. Hypertension. 3. Heart failure. 4. Hypothyroidism. PLAN: We will continue to keep the patient inpatient to Psychiatric Unit. We will follow up with a psychiatrist to monitor the patient's condition and behavior. Treatment plans were discussed with the patient's nurse. Treatment plans were discussed with Dr. Minor. JOB# [id number]
--- NOTE | 2019-09-14 13:47 | Progress Notes ---
DATE: 09/14/2019 SUBJECTIVE: The patient is still yelling, screaming, verbally abusive to staff, wanting to see "the head of your group" very upset. The patient is telling staff that she was at a alliance party in [place], danced too much that is why she is here and not making much sense, aggressive towards staff, yelling, verbally accosting staff. ASSESSMENT: The patient remains symptomatic, ongoing psychotic symptoms, behavioral disturbance was as noted. There were some concerns about over sedation. Medications were lowered to some extent. PLAN: I will continue to monitor closely. JOB# [id number]
[2019-09-15] MEDS: Hydrocodone/APAP 5mg/325mg Tab PO PRN (03:55)
[2019-09-15] MEDS: Levothyroxine 0.05 Mg Tab PO SCH (06:36)
[2019-09-15] MEDS: Multivitamin w/ Minerals Tab PO SCH (08:35)
[2019-09-15] MEDS: Ferrous Sulfate 325 MG TAB PO SCH ×2 (08:35→17:30)
--- NOTE | 2019-09-15 13:25 | Internal Medicine Prog Note ---
Internal Medicine Subjective - Subjective Patient is:: awake, verbal, jarad chair, agitated, confused Patient Complaints of:: other (been yelling this morning) Per staff patient has:: no adverse event, no episodes of fall, agitated, other ( yelling when awaken) Internal Medicine Objective - Physical Exam Vitals and I&O: Vital Signs Temp 97.4 F 09/15/19 05:59 Pulse 97 09/15/19 08:37 Resp 20 09/15/19 08:00 BP 112/69 09/15/19 08:37 Pulse Ox 99 09/15/19 05:59 Intake & Output 09/14/19 09/15/19 09/15/19 18:59 06:59 18:59 Intake Total 240 Output Total 0 Balance 0 240 Intake: Oral 240 Output: Stool 0 Other: # Voids 3 1 # Bowel Movements 0 Stool Characteristics Soft Active Medications: Current Medications Acetaminophen (Tylenol) 650 mg PO Q4HR PRN PRN Reason: Mild Pain (Scale 1-3) Stop: 10/30/19 01:57 Last Admin: 09/06/19 00:57 Dose: 650 mg Acetaminophen (Tylenol) 650 mg PO Q4HR PRN PRN Reason: TEMP ABOVE 100 Stop: 11/11/19 09:43 Acetaminophen/Hydrocodone Bitart ([place] 5mg/325mg) 1 tab PO Q6H PRN PRN Reason: Pain (Severe 7-10) Stop: 10/30/19 01:57 Last Admin: 09/15/19 03:55 Dose: 1 tab Al Hydrox/Mg Hydrox/Simethicone (Maalox) 30 ml PO Q4HR PRN PRN Reason: GI DISTRESS Stop: 10/30/19 01:46 Ascorbic Acid (Vitamin C) 500 mg PO DAILY JUAN DAVID Stop: 10/30/19 08:59 Last Admin: 09/15/19 08:33 Dose: 500 mg Baclofen (Lioresal) 10 mg PO TID [facility] DAVID Stop: 10/30/19 08:59 Last Admin: 09/15/19 08:33 Dose: 10 mg Clonazepam (Klonopin) 1 mg PO TID [facility] DAV[facility]; Protocol Stop: 11/11/19 20:59 Last Admin: 09/15/19 08:33 Dose: 1 mg Clonazepam (Klonopin) 0.5 mg PO TID [facility] DAV[facility] Stop: 11/11/19 20:59 Last Admin: 09/15/19 08:34 Dose: 0.5 mg Divalproex Sodium (Depakote Dr) 500 mg PO BID [facility]; Protocol Stop: 11/02/19 08:59 Last Admin: 09/15/19 08:34 Dose: 500 mg Docusate Sodium (Colace) 100 mg PO DAILY [facility] Stop: 10/30/19 08:59 Last Admin: 09/15/19 08:34 Dose: 100 mg Escitalopram Oxalate (Lexapro) 10 mg PO DAILY [facility]; Protocol Stop: 10/30/19 08:59 Last Admin: 09/15/19 08:35 Dose: 10 mg Ferrous Sulfate (Iron) 325 mg PO BID [facility] Stop: 10/30/19 08:59 Last Admin: 09/15/19 08:35 Dose: 325 mg Furosemide (Lasix) 40 mg PO DAILY [facility] Stop: 10/30/19 08:59 Last Admin: 09/15/19 08:35 Dose: 40 mg Haloperidol (Haldol) 5 mg PO 1700 [facility]; Protocol Stop: 11/11/19 16:59 Last Admin: 09/14/19 16:37 Dose: 5 mg Haloperidol Decanoate (Haldol Dec) 50 mg IM QMONTH [facility]; Protocol Stop: 10/30/19 08:59 Last Admin: 08/31/19 09:00 Dose: Not Given Levothyroxine Sodium (Synthroid) 0.05 mg PO QDAC [facility] Stop: 10/30/19 07:29 Last Admin: 09/15/19 06:36 Dose: 0.05 mg Lorazepam (Ativan) 0.5 mg PO Q4HR PRN; Protocol PRN Reason: Agitation Stop: 10/30/19 01:53 Last Admin: 09/10/19 00:28 Dose: 0.5 mg Losartan Potassium (Cozaar) 50 mg PO DAILY [facility] Stop: 10/30/19 08:59 Last Admin: 09/15/19 08:37 Dose: Not Given Magnesium Hydroxide (Milk Of Magnesia) 30 ml PO HS PRN PRN Reason: Constipation Quetiapine Fumarate (Seroquel) 100 mg PO TID [facility]; Protocol Stop: 11/11/19 20:59 Last Admin: 09/15/19 08:36 Dose: 100 mg Trazodone HCl (Desyrel) 200 mg PO HS [facility]; Protocol Stop: 11/01/19 20:59 Last Admin: 09/14/19 21:45 Dose: Not Given Zinc Sulfate (Zinc Sulfate) 220 mg PO DAILY [facility] Stop: 10/30/19 08:59 Last Admin: 09/15/19 08:36 Dose: 220 mg Zolpidem Tartrate (Ambien) 5 mg PO HS PRN PRN Reason: Insomnia Stop: 10/30/19 01:57 Last Admin: 09/07/19 21:28 Dose: 5 mg General: alert, NAD, other (yelling in the room) HEENT: NC/AT, PERRLA Neck: Supple, No JVD Lungs: other (no acute respiratory distress) Cardiovascular: RRR Abdomen: soft, non-tender Extremities: clear Neurological: no change Internal Medicine Assmt/Plan - Assessment Assessment: Schizoaffective disorder HTN Hyperthyroidism Heart Failure OA - Plan Plan: Continue current treatment plan. Continue current medications Continue to monitor VS Monitor Diet/Nutritional support. Psych management per Psychiatry. Safety precaution, Fall precaution, frequent nursing round. Supportive care. Continue collaborating with consulting specialists, case management and nursing team Nutritional Asmnt/Malnutr-PDOC - Dietary Evaluation Malnutrition Findings (Please click <Entered> for more info): Nutritional Asmnt/Malnutrition Start: 09/06/19 14: 05 Text: Status: Complete Freq: Protocol: Document 09/06/19 14:49 JOVAN (Rec: 09/06/19 14:52 JOVAN [email or web address]) Nutritional Asmnt/Malnutrition Patient General Information Nutritional Screening Low Risk Diagnosis Psychosis Pertinent Medical Hx/Surgical Hx Nicotine dependence, HTN, Hyperlipidemia, Osteoarthritis , Hypothyroidism, Heart Failure Subjective Information Pt is a 68-year-old female admitted on 08/30 d/t verbal abuse and aggressive behavior towards nursing facility staff . Pt is eating an estimated 70 % of meals x3 days (average) Per Meal/Nutrition Activity Record. Dietary is currently providing an estimated 2160 kcals and 100 gm Pro, per Pt PO intake this is providing an estimated 1500 kcals and 70gm Pro to meet 88% kcal and 100+ % Pro needs- adequate. Pt was asleep at time of morning visit, came back in the afternoon. Pt was waking up and ready to eat lunch. I had a STATISTICIAN THEORETICAL help sit pt up and grabbed her a prune juice per request. Pt noted to have diarrhea on 09/05 per EMR, after talking ti nurse Sherrill and Cecilia each state pt did not have diarrhea. STATISTICIAN THEORETICAL Cesar stated pt had a firm BM today . Pt ate 100% breakfast this morning and was beginning to eat lunch as I left. Consider adding Renal to Diet Rx d/t renal related labs () BUN/Cr 40/1.5, GFR 37. Anthropometrics HT: 57 WT: 182 LB (82.73 kg) ABW: 147 LB (66.70 kg) BMI: 28.09 (Overweight) GI/ Skin Integrity GI: WNL, Soft, Flat, Non- tender BM: 09/06 x1 I/O: 1080/Not Noted Skin: WNL Intact Oniel: 18 Diet Order: BUFFY, 2GM NA, Chopped Estimated Energy Needs: ( Geriatric, ABW) 7802-8821 kcals (25-30 kcals/ kg) 70-80g Pro (1.0-1.2 g/kg) 2499-1910 ml (25-30 ml/kg) Current Diet Order/ Nutrition Support BUFFY, 2GM NA, Chopped Pertinent Medications Maalox (PRN), Vitamin C, Colace, Ferrous Sulfate, Lasix , Synthroid, Cozaar, MOM (PRN) , Zinc Sulfate Pertinent Labs 08/19: Na 134, BUN/Cr 40/1.5, GFR 37 09/01: Hgb/Hct 8.8/27.4 Nutritional Hx/Data Height 5 ft 7 in Height (Calculated Centimeters) 170.2 Current Weight (lbs) 182 lb Weight (Calculated Kilograms) 82.6 Weight (Calculated Grams) 43461.8 [place] Body Weight 135 Lb (61.36 kg) % [place] Body Weight 135 Body Mass Index (BMI) 28.5 Weight Status Overweight GI Symptoms GI Symptoms None Last BM 09/06 x1 Skin Integrity/Comment: Skin: WNL Intact Oniel: 18 Current %PO Fair (50-74%) Estimated Nutritional Goals BEE in Kcals: Adj wt of IBW Calories/Kcals/Kg 25-30 Kcals Calculated 1610-1883 Protein: Adj wt of IBW Protein g/k.0-1.2 Protein Calculated 70-80 Fluid: ml 1094-9540 ml (25-30 ml/kg) Nutritional Problem 1. Problem Problem Altered nutrition related labs Etiology r/t pathophysiological causes Signs/Symptoms: aeb labs (09/01): Na 134, BUN/ Cr 40/1.5, GFR 37. Malnutrition Related to Morbid Obesity Malnutrition related to morbid obesity No Intervention/Recommendation Comments 1. Continue BUFFY, 2GM NA, Chopped diet as tolerated. 2. Consider adding Renal to Diet Rx d/t renal related labs (09/01) BUN/Cr 40/1.5, GFR 37 . Expected Outcomes/Goals Expected Outcomes/Goals 1.PO intake to continue to meet 75% of estimated nutritional needs. 2.Monitor PO intake, wt, nutrition related labs, and skin integrity. 3.F/U as low risk in 7-10 days , 09/13-09/15
--- NOTE | 2019-09-15 22:18 | Progress Notes ---
DATE: SUBJECTIVE: The patient was seen, chart reviewed, and discussed with staff. The patient continues to be very loud, demanding, and intrusive. According to staff, the patient generally will yell profanities, also seems to be quite grandiose, and continues to feel that she is some kind of celebrity in [place]. She has, however, been compliant with medications. PLAN: The patient continues to be actively psychotic, grandiose and from reality, so that she will require inpatient care center and treatment. We will monitor the patient on a daily basis for response to medications and titrate meds as needed. JOB# [id number]
[2019-09-16] MEDS: Hydrocodone/APAP 5mg/325mg Tab PO PRN ×2 (05:39→11:33)
[2019-09-16] MEDS: Levothyroxine 0.05 Mg Tab PO SCH (06:54)
[2019-09-16] MEDS: Multivitamin w/ Minerals Tab PO SCH (08:09)
[2019-09-16] MEDS: Ferrous Sulfate 325 MG TAB PO SCH ×2 (08:10→16:26)
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
[2019-09-17] MEDS: Levothyroxine 0.05 Mg Tab PO SCH (06:35)
[2019-09-17] MEDS: Hydrocodone/APAP 5mg/325mg Tab PO PRN ×2 (06:42→15:20)
[2019-09-17] MEDS: Multivitamin w/ Minerals Tab PO SCH (08:41)
[2019-09-17] MEDS: Ferrous Sulfate 325 MG TAB PO SCH ×2 (08:41→17:49)
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
--- NOTE | 2019-09-17 22:52 | Progress Notes ---
DATE: 09/17/2019 FOLLOWUP PROGRESS NOTE Case was discussed with staff ,met with the patient ,reviewed records,The patient continues to be irritable, agitated, demanding. She wants to talk to her medical doctor and talked to Dr. Oakley and to the dietitian. Continues to be unpredictable, impulsive, needing redirection, very easily agitated. She is sleeping better, eating better. She is a bit calmer compared to yesterday, not as demanding. No side effects with the medication, no sedation, no nausea, no extrapyramidal symptoms. She is on Haldol Decanoate as well as Depakote and Seroquel 100 mg 3 times a day. We will continue to work with the patient in group therapy, milieu therapy and adjust the medications as needed. JOB# [id number] TRAVIS
[2019-09-18] MEDS: Levothyroxine 0.05 Mg Tab PO SCH (06:32)
[2019-09-18] MEDS: Multivitamin w/ Minerals Tab PO SCH (08:36)
[2019-09-18] MEDS: Ferrous Sulfate 325 MG TAB PO SCH ×2 (08:37→17:46)
[2019-09-18] MEDS: Hydrocodone/APAP 5mg/325mg Tab PO PRN (12:48)
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
--- NOTE | 2019-09-18 22:51 | Progress Notes ---
DATE: Case was discussed with staff of the patient, reviewed records. The patient continues to be demanding. Continues to be irritable, continues to have poor insight. Continues to need redirection, though in general, she is a bit calmer. She is sleeping better, eating better. No side effects of the medication. No sedation, no nausea, no extrapyramidal symptoms. She is on Haldol Decanoate and will continue outpatient group therapy, milieu therapy, and adjust medication as needed. JOB# [id number]
[2019-09-19] MEDS: Levothyroxine 0.05 Mg Tab PO SCH (06:37)
[2019-09-19] MEDS: Hydrocodone/APAP 5mg/325mg Tab PO PRN (06:38)
[2019-09-19] MEDS: Ferrous Sulfate 325 MG TAB PO SCH ×2 (08:24→16:39)
[2019-09-19] MEDS: Multivitamin w/ Minerals Tab PO SCH (08:24)
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
--- NOTE | 2019-09-19 18:36 | Progress Notes ---
DATE: 09/19/2019 Case was discussed with staff of the patient, reviewed records. The patient continues to be demanding, irritable, continues to have poor insight. Unable to make safe plan for self-care. Multiple somatic complaints, sleeping better, eating better. She is a bit calmer; however, unable to make safe plan for self-care, unable to provide any meaningful conversation without being upset. No side effects with the medication, no sedation, no nausea, no extrapyramidal symptoms. We will continue outpatient group therapy, milieu therapy, and adjust medication as needed. JOB# [id number]
[2019-09-20] MEDS: Hydrocodone/APAP 5mg/325mg Tab PO PRN (04:14)
[2019-09-20] MEDS: Levothyroxine 0.05 Mg Tab PO SCH (06:44)
[2019-09-20] MEDS: Ferrous Sulfate 325 MG TAB PO SCH ×2 (09:43→17:21)
[2019-09-20] MEDS: Multivitamin w/ Minerals Tab PO SCH (09:44)
--- NOTE | 2019-09-20 10:20 | Internal Medicine Prog Note ---
Internal Medicine Subjective - Subjective Service Date: 09/20/19 Patient seen and examined:: with staff Patient is:: awake, verbal, agitated, confused Patient Complaints of:: other (been yelling this morning) Per staff patient has:: no adverse event, no episodes of fall, agitated, other ( yelling when awaken) Internal Medicine Objective - Physical Exam Vitals and I&O: Vital Signs Temp 97.6 F 09/20/19 06:02 Pulse 70 09/20/19 09:44 Resp 20 09/20/19 06:02 BP 101/52 09/20/19 09:44 Pulse Ox 99 09/20/19 06:02 Intake & Output 09/19/19 09/20/19 09/20/19 18:59 06:59 18:59 Intake Total 1200 240 Output Total 1 Balance 1200 239 Intake: Oral 1200 240 Output: Urine/Stool Mix 1 Other: # Voids 1 # Bowel Movements 1 Active Medications: Current Medications Acetaminophen (Tylenol) 650 mg PO Q4HR PRN PRN Reason: Mild Pain (Scale 1-3) Stop: 10/30/19 01:57 Last Admin: 09/06/19 00:57 Dose: 650 mg Acetaminophen (Tylenol) 650 mg PO Q4HR PRN PRN Reason: TEMP ABOVE 100 Stop: 11/11/19 09:43 Last Admin: 09/18/19 05:25 Dose: 650 mg Acetaminophen/Hydrocodone Bitart ([place] 5mg/325mg) 1 tab PO Q6H PRN PRN Reason: Pain (Severe 7-10) Stop: 10/30/19 01:57 Last Admin: 09/20/19 04:14 Dose: 1 tab Al Hydrox/Mg Hydrox/Simethicone (Maalox) 30 ml PO Q4HR PRN PRN Reason: GI DISTRESS Stop: 10/30/19 01:46 Ascorbic Acid (Vitamin C) 500 mg PO DAILY [facility] Stop: 10/30/19 08:59 Last Admin: 09/20/19 09:41 Dose: 500 mg Baclofen (Lioresal) 10 mg PO TID [facility] Stop: 10/30/19 08:59 Last Admin: 09/20/19 09:42 Dose: 10 mg Clonazepam (Klonopin) 1 mg PO TID [facility]; Protocol Stop: 11/11/19 20:59 Last Admin: 09/20/19 09:42 Dose: 1 mg Clonazepam (Klonopin) 0.5 mg PO TID [facility] Stop: 11/11/19 20:59 Last Admin: 09/20/19 09:42 Dose: 0.5 mg Divalproex Sodium (Depakote Dr) 500 mg PO BID [facility]; Protocol Stop: 11/02/19 08:59 Last Admin: 09/20/19 09:42 Dose: 500 mg Docusate Sodium (Colace) 100 mg PO DAILY [facility] Stop: 10/30/19 08:59 Last Admin: 09/20/19 09:43 Dose: 100 mg Escitalopram Oxalate (Lexapro) 10 mg PO DAILY [facility]; Protocol Stop: 10/30/19 08:59 Last Admin: 09/20/19 09:43 Dose: 10 mg Ferrous Sulfate (Iron) 325 mg PO BID [facility] Stop: 10/30/19 08:59 Last Admin: 09/20/19 09:43 Dose: 325 mg Furosemide (Lasix) 40 mg PO DAILY [facility] Stop: 10/30/19 08:59 Last Admin: 09/20/19 09:43 Dose: Not Given Haloperidol (Haldol) 5 mg PO 1700 [facility]; Protocol Stop: 11/11/19 16:59 Last Admin: 09/19/19 16:39 Dose: Not Given Haloperidol Decanoate (Haldol Dec) 50 mg IM QMONTH [facility]; Protocol Stop: 10/30/19 08:59 Last Admin: 08/31/19 09:00 Dose: Not Given Levothyroxine Sodium (Synthroid) 0.05 mg PO QDAC [facility] Stop: 10/30/19 07:29 Last Admin: 09/20/19 06:44 Dose: 0.05 mg Lorazepam (Ativan) 0.5 mg PO Q4HR PRN; Protocol PRN Reason: Agitation Stop: 10/30/19 01:53 Last Admin: 09/15/19 22:11 Dose: 0.5 mg Losartan Potassium (Cozaar) 50 mg PO DAILY [facility] Stop: 10/30/19 08:59 Last Admin: 09/20/19 09:44 Dose: Not Given Magnesium Hydroxide (Milk Of Magnesia) 30 ml PO HS PRN PRN Reason: Constipation Quetiapine Fumarate (Seroquel) 150 mg PO TID [facility]; Protocol Stop: 11/19/19 08:59 Last Admin: 09/20/19 09:45 Dose: 150 mg Trazodone HCl (Desyrel) 200 mg PO HS [facility]; Protocol Stop: 11/01/19 20:59 Last Admin: 09/19/19 20:18 Dose: 200 mg Zinc Sulfate (Zinc Sulfate) 220 mg PO DAILY [facility] Stop: 10/30/19 08:59 Last Admin: 09/20/19 09:45 Dose: 220 mg Zolpidem Tartrate (Ambien) 5 mg PO HS PRN PRN Reason: Insomnia Stop: 10/30/19 01:57 Last Admin: 09/15/19 20:50 Dose: 5 mg Physical Exam: Patient needs close monitoring, hallucinating,agitated and easily frustrated. General: alert, demented, NAD, other (yelling in the room) HEENT: NC/AT, PERRLA Neck: Supple, No JVD Lungs: other (no acute respiratory distress) Cardiovascular: RRR Abdomen: soft, non-tender Extremities: clear Neurological: no change Internal Medicine Assmt/Plan - Assessment Assessment: Schizoaffective disorder. Hypertension. Hyperthyroidism. Heart failure. Osteoarthritis. - Plan Plan: Psych management as per Psych. Continue present meds as directed. Monitor vitals and labs. Supportive care. Monitor diet and nutritional support. Continue current treatment plan as ordered. Nutritional Asmnt/Malnutr-PDOC - Dietary Evaluation Malnutrition Findings (Please click <Entered> for more info): Nutritional Asmnt/Malnutrition Start: 09/06/19 14: 05 Text: Status: Complete Freq: Protocol: Document 09/06/19 14:49 JOVAN (Rec: 09/06/19 14:52 JOVAN [id number]) Nutritional Asmnt/Malnutrition Patient General Information Nutritional Screening Low Risk Diagnosis Psychosis Pertinent Medical Hx/Surgical Hx Nicotine dependence, HTN, Hyperlipidemia, Osteoarthritis , Hypothyroidism, Heart Failure Subjective Information Pt is a 68-year-old female admitted on 08/30 d/t verbal abuse and aggressive behavior towards nursing facility staff . Pt is eating an estimated 70 % of meals x3 days (average) Per Meal/Nutrition Activity Record. Dietary is currently providing an estimated 2160 kcals and 100 gm Pro, per Pt PO intake this is providing an estimated 1500 kcals and 70gm Pro to meet 88% kcal and 100+ % Pro needs- adequate. Pt was asleep at time of morning visit, came back in the afternoon. Pt was waking up and ready to eat lunch. I had a YARN WEIGHER help sit pt up and grabbed her a prune juice per request. Pt noted to have diarrhea on 09/05 per EMR, after talking ti nurse Sherrill and Cecilia each state pt did not have diarrhea. YARN WEIGHER Cesar stated pt had a firm BM today . Pt ate 100% breakfast this morning and was beginning to eat lunch as I left. Consider adding Renal to Diet Rx d/t renal related labs () BUN/Cr 40/1.5, GFR 37. Anthropometrics HT: 57 WT: 182 LB (82.73 kg) ABW: 147 LB (66.70 kg) BMI: 28.09 (Overweight) GI/ Skin Integrity GI: WNL, Soft, Flat, Non- tender BM: 09/06 x1 I/O: 1080/Not Noted Skin: WNL Intact Oniel: 18 Diet Order: BUFFY, 2GM NA, Chopped Estimated Energy Needs: ( Geriatric, ABW) 6746-9076 kcals (25-30 kcals/ kg) 70-80g Pro (1.0-1.2 g/kg) 8151-6142 ml (25-30 ml/kg) Current Diet Order/ Nutrition Support BUFFY, 2GM NA, Chopped Pertinent Medications Maalox (PRN), Vitamin C, Colace, Ferrous Sulfate, Lasix , Synthroid, Cozaar, MOM (PRN) , Zinc Sulfate Pertinent Labs 08/19: Na 134, BUN/Cr 40/1.5, GFR 37 09/01: Hgb/Hct 8.8/27.4 Nutritional Hx/Data Height 1.7 m Height (Calculated Centimeters) 170.2 Current Weight (lbs) 82.554 kg Weight (Calculated Kilograms) 82.6 Weight (Calculated Grams) 91399.8 [place] Body Weight 135 Lb (61.36 kg) % [place] Body Weight 135 Body Mass Index (BMI) 28.5 Weight Status Overweight GI Symptoms GI Symptoms None Last BM 09/06 x1 Skin Integrity/Comment: Skin: WNL Intact Oniel: 18 Current %PO Fair (50-74%) Estimated Nutritional Goals BEE in Kcals: Adj wt of IBW Calories/Kcals/Kg 25-30 Kcals Calculated 4847-2043 Protein: Adj wt of IBW Protein g/k.0-1.2 Protein Calculated 70-80 Fluid: ml 4975-8657 ml (25-30 ml/kg) Nutritional Problem 1. Problem Problem Altered nutrition related labs Etiology r/t pathophysiological causes Signs/Symptoms: aeb labs (09/01): Na 134, BUN/ Cr 40/1.5, GFR 37. Malnutrition Related to Morbid Obesity Malnutrition related to morbid obesity No Intervention/Recommendation Comments 1. Continue BUFFY, 2GM NA, Chopped diet as tolerated. 2. Consider adding Renal to Diet Rx d/t renal related labs (09/01) BUN/Cr 40/1.5, GFR 37 . Expected Outcomes/Goals Expected Outcomes/Goals 1.PO intake to continue to meet 75% of estimated nutritional needs. 2.Monitor PO intake, wt, nutrition related labs, and skin integrity. 3.F/U as low risk in 7-10 days , 09/13-09/15
--- NOTE | 2019-09-21 00:13 | Progress Notes ---
DATE: 09/20/2019 SUBJECTIVE: Chart was reviewed and the patient interviewed. Also discussed the patient's condition with the staff and reviewed records and labs. The patient continued to focus on smoking and on food. The patient also is still easily irritable and agitated with yelling and screaming with foul language towards the staff. The patient also is demanding and she still has grandiose delusion and the staff reports that she has been fighting with them and she think that she is the addiction counselor of the place. Otherwise, the patient is still anxious and is still having severe mood swings and her insight is still poor. ASSESSMENT: The patient is still agitated and psychotic. TREATMENT PLAN: We will continue current treatment including Klonopin 1.5 mg 3 times a day and Depakote 500 mg twice a day as well as Lexapro 10 mg every day and Seroquel 100 mg 3 times a day. The patient also continued to take trazodone 200 mg at bedtime and Haldol 5 mg every day with no side effects. Today, we will increase Seroquel to 150 mg 3 times a day and also we will get Depakote blood level and continue to follow up. JOB# [id number]
[2019-09-21] MEDS: Hydrocodone/APAP 5mg/325mg Tab PO PRN (05:07)
[2019-09-21] MEDS: Levothyroxine 0.05 Mg Tab PO SCH (06:52)
[2019-09-21] MEDS: Multivitamin w/ Minerals Tab PO SCH (09:44)
[2019-09-21] MEDS: Ferrous Sulfate 325 MG TAB PO SCH ×2 (09:47→18:08)
--- NOTE | 2019-09-21 20:09 | Progress Notes ---
DATE: 09/21/2019 SUBJECTIVE: The patient was seen in his room. The patient is agitated, easily gets frustrated with episodes of behavioral outburst, very demanding. Otherwise, the patient appears to be in no acute distress. OBJECTIVE: VITAL SIGNS: Temperature 97.9, heart rate 95, blood pressure 144/82, respirations 18, 98% on room air. HEENT: Head is atraumatic and normocephalic. Eyes: Bilateral conjunctivae are clear. Bilateral pupils are equally round and reactive. NECK: Supple. No JVD. CARDIOVASCULAR: S1, S2, without murmur. PULMONARY: Clear to auscultation. GASTROINTESTINAL: Soft and nontender without guarding. Positive bowel sounds. MUSCULOSKELETAL: No clubbing. No cyanosis noted. ASSESSMENT: 1. Schizoaffective disorder. 2. Hypothyroidism. 3. Hypertension. 4. Heart failure. PLAN: We will continue to keep the patient inpatient to Psychiatric Unit. We will follow up with a psychiatrist to monitor the patient's condition and behavior, possible continuous medication adjustment. Treatment plans were discussed with the patient's nurse. We will put the patient on fall precaution. Treatment plans were discussed with Dr. Minor. JOB# [id number]
--- NOTE | 2019-09-22 00:56 | Progress Notes ---
DATE: 09/21/2019 SUBJECTIVE: Nursing staff reported the patient is slightly more redirectable at times, intermittently yelling. Today on [id number] evaluation, observed to be easily irritable, screaming with foul language upon approach. MENTAL STATUS EXAMINATION: Irritable, agitated, responding ____. ASSESSMENT AND PLAN: Schizophrenia. We will continue with the current medication treatment, which includes clonazepam 1 mg p.o. t.i.d. and 0.5 t.i.d., a total of 1.5. Depakote 500 b.i.d., Lexapro 10 a day with Haldol 5 ____ Haldol deaconate. No side effects noted. JOB# [id number]
[2019-09-22] MEDS: Levothyroxine 0.05 Mg Tab PO SCH (06:45)
[2019-09-22] MEDS: Multivitamin w/ Minerals Tab PO SCH (09:00)
[2019-09-22] MEDS: Ferrous Sulfate 325 MG TAB PO SCH ×2 (09:01→17:48)
--- NOTE | 2019-09-22 09:16 | Progress Notes ---
DATE: 09/22/2019 Nursing staff reporting redirectable, although intermittently yelling. [id number] evaluation, anxious, irritable, foul language again upon approach. MENTAL STATUS EXAMINATION: Responding to internal stimuli, disengaged. ASSESSMENT AND PLAN: History of schizophrenia. We will continue with the recent adjustments to target her ongoing residual thought blocking. She is tolerating a dual antipsychotic that she is currently treatment resistant. JOB# [id number]
--- NOTE | 2019-09-22 13:13 | Internal Medicine Prog Note ---
Internal Medicine Subjective - Subjective Patient is:: awake, verbal, in wheelchair, confused Patient Complaints of:: other Per staff patient has:: no adverse event, no episodes of fall, agitated, other Internal Medicine Objective - Physical Exam Vitals and I&O: Vital Signs Temp 98.2 F 09/22/19 06:39 Pulse 105 09/22/19 09:22 Resp 18 09/22/19 06:39 BP 118/82 09/22/19 09:22 Pulse Ox 97 09/22/19 06:39 Intake & Output 09/21/19 09/22/19 09/22/19 18:59 06:59 18:59 Intake Total 800 180 Balance 800 180 Intake: Oral 800 180 Other: # Voids 3 1 # Bowel Movements 0 0 Active Medications: Current Medications Acetaminophen (Tylenol) 650 mg PO Q4HR PRN PRN Reason: Mild Pain (Scale 1-3) Stop: 10/30/19 01:57 Last Admin: 09/22/19 01:09 Dose: 650 mg Acetaminophen (Tylenol) 650 mg PO Q4HR PRN PRN Reason: TEMP ABOVE 100 Stop: 11/11/19 09:43 Last Admin: 09/18/19 05:25 Dose: 650 mg Acetaminophen/Hydrocodone Bitart ([place] 5mg/325mg) 1 tab PO Q6H PRN PRN Reason: Pain (Severe 7-10) Stop: 10/30/19 01:57 Last Admin: 09/21/19 05:07 Dose: 1 tab Al Hydrox/Mg Hydrox/Simethicone (Maalox) 30 ml PO Q4HR PRN PRN Reason: GI DISTRESS Stop: 10/30/19 01:46 Ascorbic Acid (Vitamin C) 500 mg PO DAILY [facility] Stop: 10/30/19 08:59 Last Admin: 09/22/19 09:01 Dose: 500 mg Baclofen (Lioresal) 10 mg PO TID [facility] Stop: 10/30/19 08:59 Last Admin: 09/22/19 09:01 Dose: 10 mg Clonazepam (Klonopin) 1 mg PO TID [facility]; Protocol Stop: 11/11/19 20:59 Last Admin: 09/22/19 09:03 Dose: 1 mg Clonazepam (Klonopin) 0.5 mg PO TID [facility] Stop: 11/11/19 20:59 Last Admin: 09/22/19 09:26 Dose: 0.5 mg Divalproex Sodium (Depakote Dr) 500 mg PO BID [facility]; Protocol Stop: 11/02/19 08:59 Last Admin: 09/22/19 09:27 Dose: 500 mg Docusate Sodium (Colace) 100 mg PO DAILY [facility] Stop: 10/30/19 08:59 Last Admin: 09/22/19 09:01 Dose: 100 mg Escitalopram Oxalate (Lexapro) 10 mg PO DAILY [facility]; Protocol Stop: 10/30/19 08:59 Last Admin: 09/22/19 09:01 Dose: 10 mg Ferrous Sulfate (Iron) 325 mg PO BID [facility] Stop: 10/30/19 08:59 Last Admin: 09/22/19 09:01 Dose: 325 mg Furosemide (Lasix) 40 mg PO DAILY [facility] Stop: 10/30/19 08:59 Last Admin: 09/22/19 09:21 Dose: 40 mg Haloperidol (Haldol) 5 mg PO 1700 [facility]; Protocol Stop: 11/11/19 16:59 Last Admin: 09/21/19 18:07 Dose: 5 mg Haloperidol Decanoate (Haldol Dec) 50 mg IM QMONTH [facility]; Protocol Stop: 10/30/19 08:59 Last Admin: 08/31/19 09:00 Dose: Not Given Levothyroxine Sodium (Synthroid) 0.05 mg PO QDAC [facility] Stop: 10/30/19 07:29 Last Admin: 09/22/19 06:45 Dose: 0.05 mg Lorazepam (Ativan) 0.5 mg PO Q4HR PRN; Protocol PRN Reason: Agitation Stop: 10/30/19 01:53 Last Admin: 09/15/19 22:11 Dose: 0.5 mg Losartan Potassium (Cozaar) 50 mg PO DAILY [facility] Stop: 10/30/19 08:59 Last Admin: 09/22/19 09:22 Dose: 50 mg Magnesium Hydroxide (Milk Of Magnesia) 30 ml PO HS PRN PRN Reason: Constipation Quetiapine Fumarate (Seroquel) 150 mg PO TID [facility]; Protocol Stop: 11/19/19 08:59 Last Admin: 09/22/19 09:23 Dose: 150 mg Trazodone HCl (Desyrel) 200 mg PO HS [facility]; Protocol Stop: 11/01/19 20:59 Last Admin: 09/21/19 21:23 Dose: 200 mg Zinc Sulfate (Zinc Sulfate) 220 mg PO DAILY [facility] Stop: 10/30/19 08:59 Last Admin: 09/22/19 09:01 Dose: 220 mg Zolpidem Tartrate (Ambien) 5 mg PO HS PRN PRN Reason: Insomnia Stop: 10/30/19 01:57 Last Admin: 09/15/19 20:50 Dose: 5 mg General: alert, demented, NAD, other (sittting in wheelchair in the activity room) HEENT: NC/AT, PERRLA Neck: Supple, No JVD Lungs: other (no acute respiratory distress) Cardiovascular: RRR Abdomen: soft, non-tender Extremities: clear Neurological: no change Internal Medicine Assmt/Plan - Assessment Assessment: Schizoaffective disorder HTN Hyperthyroidism Heart Failure OA - Plan Plan: Continue current treatment plan. Continue current medications Continue to monitor VS Monitor Diet/Nutritional support. Psych management per Psychiatry. Safety precaution, Fall precaution, frequent nursing round. Supportive care. Continue collaborating with consulting specialists, case management and nursing team Nutritional Asmnt/Malnutr-PDOC - Dietary Evaluation Malnutrition Findings (Please click <Entered> for more info): Nutritional Asmnt/Malnutrition Start: 09/06/19 14: 05 Text: Status: Complete Freq: Protocol: Document 09/06/19 14:49 JOVAN (Rec: 09/06/19 14:52 JOVAN [email or web address]) Nutritional Asmnt/Malnutrition Patient General Information Nutritional Screening Low Risk Diagnosis Psychosis Pertinent Medical Hx/Surgical Hx Nicotine dependence, HTN, Hyperlipidemia, Osteoarthritis , Hypothyroidism, Heart Failure Subjective Information Pt is a 68-year-old female admitted on 08/30 d/t verbal abuse and aggressive behavior towards nursing facility staff . Pt is eating an estimated 70 % of meals x3 days (average) Per Meal/Nutrition Activity Record. Dietary is currently providing an estimated 2160 kcals and 100 gm Pro, per Pt PO intake this is providing an estimated 1500 kcals and 70gm Pro to meet 88% kcal and 100+ % Pro needs- adequate. Pt was asleep at time of morning visit, came back in the afternoon. Pt was waking up and ready to eat lunch. I had a SUPPLY CHAIN DEVELOPMENT MANAGER help sit pt up and grabbed her a prune juice per request. Pt noted to have diarrhea on 09/05 per EMR, after talking ti nurse Sherrill and Cecilia each state pt did not have diarrhea. SUPPLY CHAIN DEVELOPMENT MANAGER Cesar stated pt had a firm BM today . Pt ate 100% breakfast this morning and was beginning to eat lunch as I left. Consider adding Renal to Diet Rx d/t renal related labs () BUN/Cr 40/1.5, GFR 37. Anthropometrics HT: 57 WT: 182 LB (82.73 kg) ABW: 147 LB (66.70 kg) BMI: 28.09 (Overweight) GI/ Skin Integrity GI: WNL, Soft, Flat, Non- tender BM: 09/06 x1 I/O: 1080/Not Noted Skin: WNL Intact Oniel: 18 Diet Order: BUFFY, 2GM NA, Chopped Estimated Energy Needs: ( Geriatric, ABW) 2974-6505 kcals (25-30 kcals/ kg) 70-80g Pro (1.0-1.2 g/kg) 2432-9342 ml (25-30 ml/kg) Current Diet Order/ Nutrition Support BUFFY, 2GM NA, Chopped Pertinent Medications Maalox (PRN), Vitamin C, Colace, Ferrous Sulfate, Lasix , Synthroid, Cozaar, MOM (PRN) , Zinc Sulfate Pertinent Labs 08/19: Na 134, BUN/Cr 40/1.5, GFR 37 09/01: Hgb/Hct 8.8/27.4 Nutritional Hx/Data Height 5 ft 7 in Height (Calculated Centimeters) 170.2 Current Weight (lbs) 182 lb Weight (Calculated Kilograms) 82.6 Weight (Calculated Grams) 73138.8 [place] Body Weight 135 Lb (61.36 kg) % [place] Body Weight 135 Body Mass Index (BMI) 28.5 Weight Status Overweight GI Symptoms GI Symptoms None Last BM 09/06 x1 Skin Integrity/Comment: Skin: WNL Intact Oniel: 18 Current %PO Fair (50-74%) Estimated Nutritional Goals BEE in Kcals: Adj wt of IBW Calories/Kcals/Kg 25-30 Kcals Calculated 3166-8085 Protein: Adj wt of IBW Protein g/k.0-1.2 Protein Calculated 70-80 Fluid: ml 3238-9429 ml (25-30 ml/kg) Nutritional Problem 1. Problem Problem Altered nutrition related labs Etiology r/t pathophysiological causes Signs/Symptoms: aeb labs (09/01): Na 134, BUN/ Cr 40/1.5, GFR 37. Malnutrition Related to Morbid Obesity Malnutrition related to morbid obesity No Intervention/Recommendation Comments 1. Continue BUFFY, 2GM NA, Chopped diet as tolerated. 2. Consider adding Renal to Diet Rx d/t renal related labs (09/01) BUN/Cr 40/1.5, GFR 37 . Expected Outcomes/Goals Expected Outcomes/Goals 1.PO intake to continue to meet 75% of estimated nutritional needs. 2.Monitor PO intake, wt, nutrition related labs, and skin integrity. 3.F/U as low risk in 7-10 days , 09/13-09/15
[2019-09-23] MEDS: Levothyroxine 0.05 Mg Tab PO SCH (06:40)
[2019-09-23] MEDS: Ferrous Sulfate 325 MG TAB PO SCH (09:32)
[2019-09-23] MEDS: Multivitamin w/ Minerals Tab PO SCH (09:32)
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
== END 2019-09-23 16:30 | DRG 885 ==
LOC: GERO 23:46
PROVIDERS: ADMIT Psychiatry & Neurology Psychiatry; ATTEND Psychiatry & Neurology Psychiatry
DX: F25.8 Other schizoaffective disorders (principal); I11.0 Hypertensive heart disease with heart failure; I50.9 Heart failure, unspecified; M19.90 Unspecified osteoarthritis, unspecified site; E03.9 Hypothyroidism, unspecified; E78.5 Hyperlipidemia, unspecified; E05.90 Thyrotoxicosis, unspecified without thyrotoxic crisis or storm
CPT/HCPCS: 83036-90; G0410; J1200; J1630; J2060; Z7610